=== PATIENT | male | born 1950 | race Caucasian/White ===

== ENCOUNTER 2020-08-15 14:28 | Outpatient (CLI) | payer MEDICARE, SELFPAY ==
--- NOTE | ~2020-08-15 | XR_ITS ---
EXAMINATION: XR hand LT 2V, XR hand RT 2V DATE: 08/15/2020 15:09 INDICATION: Psoriatic arthropathy. TECHNIQUE: 1. Posteroanterior and lateral views of the left hand were obtained. 2. Posteroanterior and lateral views of the right hand were obtained. COMPARISON: None. FINDINGS: A couple millimeter right ulnar positive variance with mild cystic change at the distal margin of the ulna which could be seen with ulnocarpal impaction. Otherwise normal alignment at both hands. No fra cture. Bilateral lunotriquetral coalitions. Mild to moderate polyarticular osteoarthritis most promin ent at the left first carpometacarpal, right third metacarpophalangeal and a few of the bilateral dis miladis interphalangeal joints with additional mild osteoarthritis at the bilateral wrist, distal radioul osmel and triscaphe joints as well as a few of the remaining metacarpophalangeal joints. No cortical er osions to suggest an inflammatory arthritis. Soft tissues are unremarkable. IMPRESSION: 1. Mild to moderate polyarticular osteoarthritis at both hands and wrists. 2. A couple millimeter right ulnar positive variance with mild cystic change at the ulnar suggesting possible ulnocarpal impaction. 3. 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 Reviewed, dictated and finalized at location A. SFERRER IMPRESSION: 1. Mild to moderate polyarticular osteoarthritis at both hands and wrists. 2. A couple millimeter right ulnar positive variance with mild cystic change at the ulnar suggesting possible ulnocarpal impaction. 3. 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
--- NOTE | ~2020-08-15 | XR_ITS ---
EXAMINATION: XR lumbar spine 2-3V DATE: 08/15/2020 15:09 INDICATION: Psoriasis with arthropathy. TECHNIQUE: 3 views of lumbar spine were obtained. COMPARISON: Lumbar spine radiographs 02/07/19 FINDINGS: There is 7 degrees dextrocurvature of lumbar spine. Vertebral body heights are normal. Ther e is mildly decreased disc height at L4-L5. There are endplate osteophytes at most levels. There is m ultilevel facet joint osteoarthritis, severe in the lower lumbar spine. IMPRESSION: 1. Mild lumbar spondylosis. Reviewed, dictated and finalized at location A. E SUPERVISOR IMPRESSION: 1. Mild lumbar spondylosis.
--- NOTE | ~2020-08-15 | XR_ITS ---
EXAMINATION: XR pelvis 1-2V DATE: 08/15/2020 15:09 INDICATION: Psoriasis with arthropathy. TECHNIQUE: An anteroposterior view of the pelvis was obtained. COMPARISON: Pelvis radiograph 05/26/2019 FINDINGS: Bone alignment is normal. No fracture. There is mild osteoarthritis of the hips. No evidenc e of inflammatory arthropathy. There is moderate lumbar spondylosis. IMPRESSION: 1. Mild osteoarthritis of the hips. Reviewed, dictated and finalized at location A. O HANDLER
== END 2020-08-15 14:29 | disposition home or self-care (01) ==
PROVIDERS: PCP Family Medicine; Visit Provider Physician Assistant
DX: L40.50 Arthropathic psoriasis, unspecified (principal); M47.896 Other spondylosis, lumbar region; M16.0 Bilateral primary osteoarthritis of hip; M19.041 Primary osteoarthritis, right hand; M19.042 Primary osteoarthritis, left hand; M19.031 Primary osteoarthritis, right wrist; M19.032 Primary osteoarthritis, left wrist
CPT/HCPCS: 72100; 72170; 73120

== ENCOUNTER 2020-10-13 14:31 | Emergency (ER) | payer MEDICARE, SELFPAY ==
--- NOTE | ~2020-10-13 | XR_ITS ---
EXAMINATION: XR chest 1V portable INDICATION: Fever and upper respiratory infection TECHNIQUE: Portable AP chest at 1605 hours COMPARISON: 09/08/2018 FINDINGS: Patchy bilateral airspace opacities are present. There is no pleural effusion or pneumothor ax. The cardiomediastinal silhouette is normal. There is mild osteoarthritis of the shoulders. IMPRESSION: 1. Patchy bilateral airspace opacities, consistent with atelectasis versus pneumonia. Reviewed, dictated and finalized at location A. ITY ANALYST/TECHNICAL WRITER IMPRESSION: 1. Patchy bilateral airspace opacities, consistent with atelectasis versus pneu monia.
[2020-10-13 14:41] VITALS: BP 147/77; PULSE 102; RESP 18; TEMP 36.4; O2SAT 98
[2020-10-13 15:03] VITALS: BP 188/90; PULSE 89; RESP 16; TEMP 38.6; O2SAT 99
--- NOTE | 2020-10-13 15:40 | ED.URI ---
HPI - URI/Sore Throat General Chief Complaint: Upper Respiratory Infection Stated Complaint: COVID+ 24DEC FEVER WEAKNESS Time Seen by Provider: 10/13/20 15:38 History of Present Illness HPI Narrative: Not feeling well for more than a week. Tested positive for COVID19 on 10/04/2020. Today he became concerned because he checked his oxygen saturation at [place] and it got down to 94%. He was feeling mildly SOB, especially with exertion. He also noted that he had developed a fever. Temperature during triage was 38.6C. He has had decreased appetite, malaise, and fatigue. No nausea, vomiting, diarrhea. Related Data Home Medications Medication Instructions Recorded Confirmed pfijnzyf-val-wpddp acid 300 1 tablet PO DAILY 08/19/19 06/26/20 mcg-lycopene 600 mcg-lutein 300 mcg tablet golimumab 12.5 mg/mL intravenous IVPB 09/06/19 06/26/20 solution adalimumab 40 mg/0.8 mL 40 mg SUB-Q ONCE 06/26/20 06/26/20 subcutaneous pen kit Allergies Allergy/AdvReac Type Severity Reaction Status Date / Time Penicillins Allergy Unknown Urticaria Verified 10/13/20 14:44 Sulfa (Sulfonamide Allergy Unknown Dermatitis Verified 10/13/20 14:44 Antibiotics) Review of Systems Review of Systems: All systems reviewed & are unremarkable except as noted in HPI and below Constitutional: Constitutional: Reports chills, Reports fatigue and Reports fever(s) ENT: Denies sore throat Cardiovascular: Cardiovascular: Reports chest pain Respiratory: Respiratory: Reports chest congestion, Reports cough and Reports dyspnea Gastrointestinal: Gastrointestinal: Denies abdominal pain, Denies diarrhea, Denies nausea and Denies vomiting Genitourinary: Genitourinary: Denies dysuria Musculoskeletal: Musculoskeletal: Reports myalgias Neurologic: Denies confusion and Denies dizziness [facility] Past Medical History Medical History COVID-19 (10/04/20) Encounter for screening for other viral diseases Nocturia Periodic limb movement disorder Family History Family History Father Cerebrovascular accident, Onset Age: 72 Family history of heart disease in male family member before age 55 Hypertension, Onset Age: 72 Mother Family history of Parkinson's disease Carcinoma of colon Hypertension Patient's mother is , Onset Age: 80 Sibling Patient's brother is in good health Grandparent Family history of cardiovascular disease, Onset Age: 85 Cerebrovascular accident, Onset Age: 60 Social History Social History Smoking status: Never smoker Alcohol intake: never Gender identity (if verbalized by the patient): Male Exam Const: General: no acute distress and alert Nutritional Appearance: well nourished Orientation/consciousness: patient oriented x3 HENMT: Head: normal to inspection Resp: Effort & Inspection: normal respiratory effort Auscultation: clear to auscultation bilaterally Cardio: Rate: regular rate Rhythm: regular rhythm GI: GI Palp: Yes Soft to palpation and No Tenderness to palpation present (GI) Skin: General skin exam: normal color Neuro: General: patient oriented x3, moves all extremities, no focal motor deficits and CN's II-XI intact bilaterally Speech: normal speech Extrem: General: normal to inspection and no edema Course Vital Signs Vital signs: Vital Signs Temperature 36.4 C L 10/13/20 14:41 Pulse Rate 102 H 10/13/20 14:41 Respiratory Rate 18 10/13/20 14:41 Blood Pressure 147/77 H 10/13/20 14:41 Pulse Oximetry 98 10/13/20 14:41 Temperature 37.3 C 10/13/20 17:45 Pulse Rate 81 10/13/20 17:45 Respiratory Rate 22 H 10/13/20 17:45 Blood Pressure 161/89 H 10/13/20 17:45 Pulse Oximetry 96 10/13/20 17:45 MDM - URI/Sore Throat Differential Diagnosis Differential diagnosis:
--- NOTE | 2020-10-13 15:41 | ECG_ITS ---
Measurements Intervals [place] Rate: 84 P: 11 GA: 179 QRS: -59 QRSD: 98 T: 79 QT: 316 QTc: 376 Interpretive Statements SINUS RHYTHM LEFT ANTERIOR FASCICULAR BLOCK CANNOT RULE OUT SEPTAL INFARCT, AGE INDETERMINATE BORDERLINE ST-T WAVE ABNORMALITY- HIGH LATERAL LEADS ABNORMAL ECG Electronically Signed On 10-13-2020 17:56:44 VACUUM CLEANER REPAIRER by Armando Penaloza D.O.
[2020-10-13 16:13] LABS: Basophils Percent Auto 0.3 % (0.2-1.2); Hematocrit 45.2 % (42.0-52.0); Hemoglobin 15.1 g/dL (14.0-18.0); Immature Granulocyte Absolute 0.11 K/mm3 (0.00-0.031); Immature Granulocyte Percent A 0.9 % (0-0.5); Lymphocytes Percent Auto 21.3 % (18.3-44.2); Mean Corpuscular HGB Conc 33.4 g/dl (32-36); Mean Corpuscular Hemoglobin 29.5 pg (26-34); Mean Corpuscular Volume 88.5 fl (80-100); Mean Platelet Volume 9.4 fl (7.4-10.4); Monocytes Absolute Auto 1.7 K/mm3 (0.1-0.6); Monocytes Percent Auto 14.7 % (2.6-8.5); Neutrophils Absolute Auto 7.4 K/mm3 (1.3-6.7); Neutrophils Percent Auto 62.8 % (45.5-73.1); Platelet Count Result 259 k/mm3 (150-375); Red Blood Count 5.11 M/mm3 (4.6-6.20); Red Cell Distribution Width 12.9 % (11.5-14.5); White Blood Count 11.7 K/mm3 (4.5-10.0)
[2020-10-13 16:24] LABS: Lactic Acid Reflex 1.2 mmol/L (0.7-2.1)
[2020-10-13 16:26] LABS: Prothrombin Time 13.8 Seconds (11.1-14.7)
[2020-10-13 16:27] LABS: Alanine Aminotransferase 39 U/L (4-50); Albumin Level 4.2 g/dL (3.5-5.1); Alkaline Phosphatase 98 U/L (38-126); Anion Gap 10 mmol/L (8-16); Aspartate Amino Transferase 47 U/L (17-59); Bilirubin,Total 0.7 mg/dL (0.2-1.3); Blood Urea Nitrogen 32 mg/dL (9-20); CRP 1.2 mg/dL (<1.0); Calcium 9.4 mg/dL (8.4-10.2); Carbon Dioxide 29 mmol/L (22-30); Chloride 102 mmol/L (98-107); Estimated CRCL calculation 73 ml/min; Estimated Glomerular Filt Rate > 60; Glucose 91 mg/dL (75-110); Partial Thromboplastin Time 26.1 SECONDS (22.3-36.8); Potassium 3.8 mmol/L (3.4-5.0); Sodium 141 mmol/L (137-145)
[2020-10-13 16:40] VITALS: BP 167/92; PULSE 71; RESP 16; TEMP 37.1; O2SAT 96
[2020-10-13 17:02] LABS: Add Urine Microscopic? YES; Appearance Urine Clear (Clear); Bilirubin Urine Negative (Negative); Blood Urine 1+ (Negative); Color Urine Yellow (Yellow); Glucose Urine UA Negative (Negative); Ketones Urine Negative (Negative); Leukocyte Esterase Ur Negative LEU/UL (Negative); Mucus Urine Rare /lpf; Nitrate Urine Negative (Negative); Protein Urine 1+ mg/dL (Negative); Urobilinogen Urine Negative mg/dL (<2.0); WBC Urine 0-3 /hpf
[2020-10-13 17:45] VITALS: BP 161/89; PULSE 81; RESP 22; TEMP 37.3; O2SAT 96
== END 2020-10-13 17:49 | disposition home or self-care (01) ==
PROVIDERS: Emergency Provider Emergency Medicine; PCP Family Medicine
DX: U07.1 COVID-19 (principal); I44.4 Left anterior fascicular block; R94.31 Abnormal electrocardiogram [ECG] [EKG]
CPT/HCPCS: 36415; 71045; 80053; 81001; 83605; 85025; 85610; 85730; 86140; 87040; 93005; 96365; 96375; 99284; J0131; J1100

== ENCOUNTER 2020-10-15 15:04 | Emergency (ER) | payer MEDICARE, SELFPAY ==
[2020-10-15] VITALS (7 sets, daily range): BP systolic 141–176; BP diastolic 79–91; PULSE 92–99; RESP 18–25; TEMP 36.8–36.9; O2SAT 94–100
--- NOTE | ~2020-10-15 | CT_ITS ---
EXAMINATION: CTA chest PE protocol EXAM DATE: 10/15/2020 17:19 INDICATION: Fever and shortness of breath. Abnormal chest x-ray. TECHNIQUE: Spiral CTA of the chest (pulmonary arteries) was performed with 100 cc Omnipaque 350 intr avenous contrast injection. Images were acquired during the pulmonary arterial phase. Coronal maxi mum intensity projection 3D-reconstructions were created by the technologist on dedicated workstation . Axial, coronal and sagittal reformatted images were reviewed. The dose-length product (DLP) for t his examination was 953.11 mGy-cm. The exposure was tailored according to patient size (auto mA exp osure control), and iterative reconstruction (ASIR) was used as additional dose reduction technique. Correlation is made to chest x-ray same date. FINDINGS: There are no pulmonary emboli in the 1st through 3rd order (central and interlobar) pulmon colin arteries. Loss of attenuation in the segmental pulmonary arteries due to respiratory motion, man y of these not well evaluated. No thoracic aortic dissection. Linear subsegmental atelectasis. Th ere are no pleural or pericardial effusions. Tracheobronchial tree is patent. There is no mediast inal, hilar or axillary lymphadenopathy. There is no pneumothorax. Heart normal in size. No eva dence of coronary arterial calcification. Several small liver cysts. There is mild to moderate thor acic spondylosis without osteoblastic or osteolytic lesions identified. IMPRESSION: 1. No central pulmonary emboli or acute findings. Limited segmental evaluation. 2. Linear subsegmental atelectasis. Reviewed, dictated and finalized at location A. CISE RIDER IMPRESSION: 1. No central pulmonary emboli or acute findings. Limited segmental evaluation . 2. Linear subsegmental atelectasis.
--- NOTE | ~2020-10-15 | XR_ITS ---
XR chest 1V portable DATE: 10/15/2020 16:45 INDICATION: Fever and chills, body aches. Shortness of breath with exertion. Covid-positive for 2 day s. TECHNIQUE: Portable AP chest on 10/15/2020 at 1642 hours COMPARISON: 10/13/2020 portable AP chest at 1605 hours FINDINGS: Normal heart size. No hilar or mediastinal enlargement. Minimal infiltrate or atelectasis i s suggested at the right lung base. The lungs otherwise appear clear. No pleural effusion or pulmonar y vascular congestion or pneumothorax. Degenerative spurring of the thoracic spine. IMPRESSION: Minimal infiltrate or atelectasis at the right lung base Reviewed, dictated and finalized at location B. DRAWING CHECKER
--- NOTE | 2020-10-15 15:58 | ECG_ITS ---
Measurements Intervals [place] Rate: 98 P: 10 IL: 145 QRS: -56 QRSD: 105 T: 76 QT: 299 QTc: 382 Interpretive Statements SINUS RHYTHM LEFT ANTERIOR FASCICULAR BLOCK BASELINE ARTIFACT- I, II, III, AVR, AVL, AVF ABNORMAL ECG Electronically Signed On 10-15-2020 19:44:47 METAL GAUGE MAKER by Armando Penaloza D.O.
--- NOTE | 2020-10-15 16:18 | ED.FEVER ---
HPI - Fever General Chief Complaint: Fever Stated Complaint: COVID +/ fever Time Seen by Provider: 10/15/20 15:18 Source: patient Mode of arrival: ambulatory Limitations: no limitations History of Present Illness HPI Narrative: This patient is a 70 year old male with history psoriatic arthritis, hypothyroidism who presents for evaluation of a fever. He states he was found to be COVID +10/04/20. He has been having fatigue, cough and body aches. He also reports intermittent fevers . He states today he had a fever of 102.5 at noon. He called his PCP who recommended that he come to ER. He reports mild sob. He states he just does not feel any better. He notes is immunocompromised. HE denies nausea, vomiting diarrhea. Related Data Home Medications Medication Instructions Recorded Confirmed brncrbpe-jqr-lujct acid 300 1 tablet PO DAILY 08/19/19 06/26/20 mcg-lycopene 600 mcg-lutein 300 mcg tablet golimumab 12.5 mg/mL intravenous IVPB 09/06/19 06/26/20 solution adalimumab 40 mg/0.8 mL 40 mg SUB-Q ONCE 06/26/20 06/26/20 subcutaneous pen kit Allergies Allergy/AdvReac Type Severity Reaction Status Date / Time Penicillins Allergy Unknown Urticaria Verified 10/15/20 15:17 Sulfa (Sulfonamide Allergy Unknown Dermatitis Verified 10/15/20 15:17 Antibiotics) Review of Systems Review of Systems: All systems reviewed & are unremarkable except as noted in HPI and below Constitutional: Constitutional: Reports chills, Reports fatigue and Reports fever(s) ENT: Reports nasal congestion and Reports sore throat Cardiovascular: Cardiovascular: Denies chest pain Respiratory: Respiratory: Reports cough and Reports dyspnea Gastrointestinal: Gastrointestinal: Denies abdominal pain, Denies nausea and Denies vomiting [facility] Past Medical History Medical History COVID-19 (10/04/20) Encounter for screening for other viral diseases Nocturia Periodic limb movement disorder Family History Family History Father Cerebrovascular accident, Onset Age: 72 Family history of heart disease in male family member before age 55 Hypertension, Onset Age: 72 Mother Family history of Parkinson's disease Carcinoma of colon Hypertension Patient's mother is , Onset Age: 80 Sibling Patient's brother is in good health Grandparent Family history of cardiovascular disease, Onset Age: 85 Cerebrovascular accident, Onset Age: 60 Social History Social History Smoking status: Never smoker Alcohol intake: never Gender identity (if verbalized by the patient): Male Exam Narrative: Exam Narrative: GENERAL: well-nourished, and in no acute distress.Does appear to not feel well HEAD: Normocephalic, atraumatic EYES: PERRLA and EOMI, conjunctiva clear without discharge THROAT:Mucous membranes moist, Oropharynx normal without erythema, exudate, peritonsillar swelling or fluctuance NECK: Supple, without lymphadenopathy or mass RESPIRATORY: No respiratory distress, Airway patent, Respirations non-labored, Clear to auscultation without rales, rhonchi or wheeze HEART: Regular rate and rhythm. No murmur heard. Normal peripheral pulses. ABDOMEN: Soft, nontender, nondistended, normal active bowel sounds. No masses. No rebound or guarding, No organomegaly. EXTREMITIES: No edema, normal strength with full range of motion. SKIN: Warm, dry, normal color without rash NEURO: Alert and oriented x3. CN 2-12 grossly intact. No focal deficits. PSYCH: Normal mood and affect. Course Consultations Consultation #1: I Discussed case with DR. Magallanes. Patient is not hypoxic with ambulation. Labs show leukocytosis which is likely due to steroids. HE did not have a fever in ER .. I discussed I spoke with hospitalist and patient does not
[2020-10-15 16:20] LABS: Basophils Absolute Auto 0.1 K/mm3 (0.0-0.1); Basophils Percent Auto 0.3 % (0.2-1.2); Eosinophils Percent Auto 0.1 % (0-4.4); Hematocrit 45.1 % (42.0-52.0); Hemoglobin 15.2 g/dL (14.0-18.0); Immature Granulocyte Absolute 0.28 K/mm3 (0.00-0.031); Immature Granulocyte Percent A 1.6 % (0-0.5); Lymphocytes Absolute Auto 2.56 K/mm3 (0.9-3.2); Mean Corpuscular HGB Conc 33.7 g/dl (32-36); Mean Corpuscular Hemoglobin 29.2 pg (26-34); Mean Corpuscular Volume 86.7 fl (80-100); Mean Platelet Volume 9.6 fl (7.4-10.4); Monocytes Absolute Auto 1.7 K/mm3 (0.1-0.6); Monocytes Percent Auto 9.8 % (2.6-8.5); Neutrophils Absolute Auto 12.5 K/mm3 (1.3-6.7); Neutrophils Percent Auto 73.2 % (45.5-73.1); Platelet Count Result 257 k/mm3 (150-375); Red Cell Distribution Width 12.9 % (11.5-14.5); White Blood Count 17.1 K/mm3 (4.5-10.0)
[2020-10-15 16:27] LABS: Alveolar/Arterial O2 Gradient 67.4 mmHg; Base Excess ABG -0.4 mEq/l (+/-2.0); Carboxyhemoglobin 0.8 % THb (0-2.0); Fractional Inspired Oxygen 21 %; HCO3 ABG 20.9 mEq/l (22.0-26.0); Methemoglobin ABG 0.1 %THb (0-1.5); Oxygen Content ABG 18.5 %vol (16.0-22.0); Oxygen Saturation ABG 90.1 % (95.0-100.0); Oxyhemoglobin 89.2 % THb (90.0-100.0); PCO2 ABG 26.4 mmHg (35.0-45.0); PO2 ABG 50.7 mmHg (80.0-100.0); PO2 FiO2 Ratio Arterial Blood 2.41 %; Reduced Hemoglobin 9.9 %THb (0-5.0); Total Hemoglobin 14.8 g/dL (12.0-18.0)
[2020-10-15 16:28] LABS: Device ROOM AIR; Modified Allen's Test Pass; Site Drawn RIGHT RADIAL; pH ABG 7.517 (7.350-7.450)
[2020-10-15 16:30] LABS: Partial Thromboplastin Time 29.4 SECONDS (22.3-36.8); Prothrombin Time 13.8 Seconds (11.1-14.7)
[2020-10-15 16:33] LABS: D Dimer 1.15 ug/mL (<0.48)
[2020-10-15 16:34] LABS: Lactic Acid Reflex 2.1 mmol/L (0.7-2.1)
[2020-10-15 16:38] LABS: Alanine Aminotransferase 36 U/L (4-50); Albumin Level 4.1 g/dL (3.5-5.1); Alkaline Phosphatase 100 U/L (38-126); Anion Gap 11 mmol/L (8-16); Aspartate Amino Transferase 40 U/L (17-59); Bilirubin,Total 0.7 mg/dL (0.2-1.3); Blood Urea Nitrogen 31 mg/dL (9-20); CRP 3.3 mg/dL (<1.0); Calcium 9.2 mg/dL (8.4-10.2); Carbon Dioxide 29 mmol/L (22-30); Chloride 99 mmol/L (98-107); Estimated CRCL calculation 66 ml/min; Estimated Glomerular Filt Rate 60; Glucose 90 mg/dL (75-110); Potassium 3.5 mmol/L (3.4-5.0); Sodium 139 mmol/L (137-145)
[2020-10-15 16:44] LABS: NT Pro B Type Natriuretic Pept 73 PG/ML (5-100)
--- NOTE | 2020-10-15 16:52 | PC.NURSE ---
Pt daughters came in wanting to see her father. Daughter was informed that since pt is COVID + he is unable to have visitors. Pts daughter wanted to know that status of her father. I informed daughter that she was not an authorized person to give information to. Daughter asked who was on list and informed her that i could not tell her this. Daughter states fuck you, this is fucking bullshit and walked out door. Will inform pt that his daughter was here.
--- NOTE | 2020-10-15 18:25 | ECG_ITS ---
Measurements Intervals [place] Rate: 108 P: ID: 0 QRS: -58 QRSD: 98 T: 82 QT: 302 QTc: 405 Interpretive Statements SUPRAVENTRICULAR TACHYCARDIA CHANGES TO SINUS TACHYCARDIA LEFT ANTERIOR FASCICULAR BLOCK BASELINE ARTIFACT- I, II, AVR, AVL ABNORMAL ECG Electronically Signed On 10-17-2020 8:21:31 SAP GATHERER by Armando Penaloza D.O.
[2020-10-15 18:37] LABS: Add Urine Microscopic? YES; Appearance Urine Clear (Clear); Bacteria Urine Trace /hpf; Bilirubin Urine Negative (Negative); Blood Urine 1+ (Negative); Color Urine Yellow (Yellow); Glucose Urine UA Negative (Negative); Ketones Urine Negative (Negative); Leukocyte Esterase Ur Negative LEU/UL (Negative); Mucus Urine Rare /lpf; Nitrate Urine Negative (Negative); Protein Urine 1+ mg/dL (Negative); Urobilinogen Urine Negative mg/dL (<2.0); WBC Urine 0-3 /hpf
[2020-10-15] MEDS: LACTATED RINGERS 1,000 ML 999 ML IV CONT (18:38)
[2020-10-15 18:41] LABS: Specific Grav Ur 1.051 (1.001-1.035)
[2020-10-15 19:18] LABS: Reflex Lactic Acid Yes or No Add Lactic
== END 2020-10-15 19:27 | disposition home or self-care (01) ==
PROVIDERS: Emergency Provider General Practice; PCP Family Medicine
DX: R50.9 Fever, unspecified (principal); B34.9 Viral infection, unspecified; U07.1 COVID-19; L40.50 Arthropathic psoriasis, unspecified; E03.9 Hypothyroidism, unspecified; R06.02 Shortness of breath
CPT/HCPCS: 36415; 36600; 71045; 71275; 80053; 81001; 82375; 82805; 83050; 83605; 83880; 85025; 85380; 85610; 85730; 86140; 87040; 87804; 93005; 96360; 99284; J7120; Q9967

== ENCOUNTER 2021-04-26 12:24 | Outpatient (CLI) | payer MEDICARE, SELFPAY ==
--- NOTE | ~2021-04-26 | CT_ITS ---
EXAMINATION: CT diagnostic chest wo con EXAM DATE: 04/26/2021 12:45 INDICATION: R91.1 - Solitary pulmonary nodule. TECHNIQUE: Spiral CT of the chest without contrast. Axial, coronal and sagittal images of the chest were reviewed. Coronal maximum intensity pixel images of chest reviewed. The dose-length product ( DLP) for this examination was 341.05 mGy-cm. The exposure was tailored according to patient size (au to mA exposure control), and iterative reconstruction (ASIR) was used as additional dose reduction te chnique. Comparison is made to prior examination from 10/15/2020. FINDINGS: The lungs are clear. There are no pleural or pericardial effusions. Tracheobronchial t ree is patent. There is no mediastinal, hilar or axillary lymphadenopathy. There is no pneumothor ax. Heart normal in size. No evidence of coronary arterial calcification. Right liver lobe 2.5 c m cyst. There is mild thoracic spondylosis without osteoblastic or osteolytic lesions identified. IMPRESSION: 1. Unremarkable CT chest examination. Reviewed, dictated and finalized at location A.
== END 2021-04-26 12:25 | disposition home or self-care (01) ==
PROVIDERS: PCP Family Medicine; Visit Provider Nurse Practitioner Family
DX: R91.1 Solitary pulmonary nodule (principal)
CPT/HCPCS: 71250

== ENCOUNTER 2022-04-22 14:30 | Outpatient (RCR) | payer MEDICARE, SELFPAY ==
[2022-04-22 14:52] VITALS: BP 160/60; PULSE 80; RESP 20; TEMP 37.7; O2SAT 96
[2022-04-22] MEDS: ACETAMINOPHEN 325 MG TABLET 650 MG PO (14:56)
[2022-04-22] MEDS: diphenhydrAMINE HCl CAP 25 MG CAPSULE PO (14:56)
[2022-04-22] MEDS: FAMOTIDINE 20 MG TABLET PO (14:56)
[2022-04-22] MEDS: BEBTELOVIMAB 175 MG/2 ML VIAL IV PUSH (15:16)
[2022-04-22 15:56] VITALS: BP 139/55; PULSE 75; RESP 18; O2SAT 94
== END 2022-04-22 16:00 ==
LOC: AMCINF 14:30
PROVIDERS: PCP Family Medicine; Referring Provider Family Medicine; Visit Provider Internal Medicine Hematology & Oncology
DX: U07.1 COVID-19 (principal)
CPT/HCPCS: A9270; M0222; Q0222

== ENCOUNTER 2022-05-19 09:46 | Outpatient (CLI) | payer MEDICARE, SELFPAY ==
--- NOTE | 2022-05-19 10:12 | ECG_ITS ---
Measurements Intervals [place] Rate: 62 P: 56 [place]: 254 QRS: -55 QRSD: 110 T: 50 QT: 369 QTc: 375 Interpretive Statements SINUS RHYTHM WITH FIRST DEGREE AV BLOCK LEFT ANTERIOR FASCICULAR BLOCK [QRS AXIS <= -45, QR IN I, RS IN II] COMPARED TO ECG 10/15/2020 18:25:38 PATIENT IS NO LONGER TACHYCARDIC Electronically Signed On 05-19-2022 14:33:28 CDT by Rah Hilton M.D.
== END 2022-05-19 09:47 | disposition home or self-care (01) ==
PROVIDERS: PCP Family Medicine; Visit Provider Family Medicine
DX: I10 Essential (primary) hypertension (principal); I44.0 Atrioventricular block, first degree; I44.4 Left anterior fascicular block
CPT/HCPCS: 93005

== ENCOUNTER 2022-06-04 15:17 | Outpatient (CLI) | payer MEDICARE, SELFPAY ==
--- NOTE | ~2022-06-04 | MR_ITS ---
EXAMINATION: MR lumbar spine wo con DATE: 06/04/2022 16:06 INDICATION: Chronic midline low back pain TECHNIQUE: Magnetic resonance imaging (MRI) of the lumbar spine was performed without intravenous con trast. Sequences included sagittal T2-weighted FSE, sagittal T2-weighted FS FSE, sagittal T1-weighted FSE, and axial T2-weighted FSE. COMPARISON: None FINDINGS: A degree lumbar dextrocurvature. Sagittal alignment is normal. Vertebral body heights are normal. Diego morl's node along the inferior endplate of L4. T1 hyperintense hemangiomas at L2. Moderate disc heigh t loss with right-sided predominance and right-sided degenerative endplate changes at L4-L5. Mild dis c height loss at T11-T12. The conus medullaris terminates at L1-L2. There is normal signal in the cau johanna spinal cord. Paravertebral soft tissues are unremarkable. The following disc levels are specifica lly discussed: T12-L1: The disc does not extend beyond the endplate margin. There is mild left and moderate right fa cet joint osteoarthritis. There is no neural foraminal stenosis. There is no central canal stenosis. L1-L2: Disc is minimally bulging. There is mild to moderate bilateral facet joint osteoarthritis. The re is mild left neural foraminal stenosis. There is no central canal stenosis. L2-L3: Disc is mildly bulging most prominent at the left foraminal zone There is mild bilateral facet joint osteoarthritis. There is mild bilateral, left greater than right. neural foraminal stenosis. T here is no central canal stenosis. L3-L4: Disc is mildly bulging. There is moderate bilateral facet joint osteoarthritis. There is mild bilateral neural foraminal stenosis. There is no central canal stenosis. L4-L5: Disc is moderately bulging. There is moderate left and severe right facet joint osteoarthritis . There is mild left and moderate right neural foraminal stenosis. There is mild central canal stenos is. L5-S1: Disc is bulging with annular fissure. There is severe bilateral facet joint osteoarthritis. Th ere is moderate bilateral neural foraminal stenosis. There is no central canal stenosis. IMPRESSION: 1. Mild to moderate lower lumbar predominant spondylosis. Reviewed, dictated and finalized at location A.
== END 2022-06-04 15:18 | disposition home or self-care (01) ==
PROVIDERS: PCP Family Medicine; Visit Provider Physician Assistant
DX: M47.896 Other spondylosis, lumbar region (principal)
CPT/HCPCS: 72148

== ENCOUNTER 2022-10-08 14:22 | Emergency (ER) | payer MEDICARE, SELFPAY ==
[2022-10-08 14:43] VITALS: TEMP 36.7
--- NOTE | 2022-10-08 15:17 | ED.URI ---
HPI - URI/Sore Throat General Chief Complaint: Upper Respiratory Infection Stated Complaint: flu like symptoms Time Seen by Provider: 10/08/22 15:23 Source: patient, RN notes reviewed and old records reviewed Mode of arrival: ambulatory Limitations: no limitations History of Present Illness HPI Narrative: 72-year-old male who presents to [facility] with complaints of 2 day history of body aches, weakness, fevers up to 101.7F earlier today, and sinus congestion. Patient reports his doctor wanted him to come to clinic and have flu test. Patient appears pale and reports he doesn't feel well. Patient does have history of psoriatic arthritis and takes infusions of Golimumab IV. Patient reports that he did home COVID test earlier today that was negative but he isn't sure he did it right. Patient reports history of previous COVID infections, [place] of 2019 and in April of 2022. MD elicited complaint: fever, rhinorrhea, nasal congestion and other (weakness, body aches) Pertinent past history: sinusitis and immunosuppression Onset (ago): day(s) (2) Pain scale (0-10): 4 Able to tolerate fluids by mouth: Yes Treatments prior to arrival: acetaminophen Related Data Home Medications Medication Instructions Recorded Confirmed ascorbate calcium (vitamin C) 500 500 mg PO DAILY 01/09/21 10/08/22 mg tablet amlodipine 5 mg tablet 5 mg PO DAILY 05/20/21 10/08/22 meloxicam 15 mg tablet 15 mg PO DAILY PRN pain 05/20/21 10/08/22 metoprolol succinate 50 mg 50 mg PO DAILY 05/20/21 10/08/22 tablet,extended release 24 hr rosuvastatin 20 mg tablet (Crestor) 20 mg PO DAILY 05/20/21 10/08/22 golimumab 12.5 mg/mL intravenous IV 11/11/21 05/27/22 solution (Simponi ARIA) Allergies Allergy/AdvReac Type Severity Reaction Status Date / Time Penicillins Allergy Unknown Urticaria Verified 10/08/22 14:40 Sulfa (Sulfonamide Allergy Unknown Dermatitis Verified 10/08/22 14:40 Antibiotics) Review of Systems Review of Systems: CONSTITUTIONAL: Reports malaise, chills, sweats, or fever. EYES: Denies visual changes, redness, or discharge. ENT: Reports rhinorrhea, congestion, sinus pain,tinnitus bilateral ears,no sore throat. CARDIOVASCULAR: Denies chest pain, palpitations, or edema. RESPIRATORY: Reports rare dry cough.? Denies dyspnea. GASTROINTESTINAL: Denies abdominal pain, nausea, vomiting, diarrhea SKIN: Denies rash or itching. MUSCULOSKELETAL: Reports myalgia. NEUROLOGIC: Reports headache. All systems reviewed & are unremarkable except as noted in HPI and below PMFSH Past Medical History Medical History Abnormal fasting glucose (05/16/22) fasting glucose 100 on 05/16/2022. Acute sinusitis Anemia (05/16/22) hemoglobin 13.0 with hematocrit 40.6 on 05/16/2022. BMI 33.0-33.9,adult BMI 35.0-35.9,adult Chronic neck pain COVID-19 (10/04/20) COVID-19 (04/22/22) unvaccinated, 2nd episode, symptoms 04/22/2022 with home test positive 04/22/2022. Encounter for screening for other viral diseases Fatigue Liver cyst (04/26/21) patient was noted to have a 2.5 cm cyst the right lobe of the liver on CT of the chest on 04/26/2021. The patient was reassured Macular pucker, left eye Mixed hyperlipidemia Labs from [facility] on 09/16/2021 with total cholesterol 175, HDL 45, triglycerides 149 and LDL 106 with AST 27 and CK 117 Nocturia Obesity (BMI 30.0-34.9) Periodic limb movement disorder Severe periodic limb movement disorder with index of 137.9 on 11/03/2019 Post-COVID syndrome persistent fatigue, loss of taste and smell Recurrent sinusitis Surgical History Surgical History (Updated 10/09/22 @ 00:51 by Sherrill Gaitan NP) H/O eye surgery Family History Family History Father Cerebrovascular accident, Onset Age: 72 Family history of heart disease in male family member before age 55 Hypertension, On
[2022-10-08 15:28] VITALS: BP 142/67; PULSE 75; RESP 20; O2SAT 99
== END 2022-10-08 15:40 | disposition home or self-care (01) ==
PROVIDERS: Emergency Provider Registered Nurse; PCP Family Medicine
DX: J01.10 Acute frontal sinusitis, unspecified (principal); Z20.822 Contact with and (suspected) exposure to COVID-19; E78.5 Hyperlipidemia, unspecified
CPT/HCPCS: 87426; 87804; 99213; C9803; G0463

== ENCOUNTER 2022-12-26 01:26 | Day surgery (SDC) | payer MEDICARE, SELFPAY ==
[2022-12-22 10:27] VITALS: BMI 31.4
--- NOTE | 2022-12-25 11:10 | PM.HPGS ---
History of Present Illness History of Present Illness Consent: Risks, benefits, and alternatives have been discussed and questions answered. Patient agrees to proceed with procedure. Chief complaint: family hx colon ca Narrative: Jhonathan Stephenson is a 72 year old male Was referred for colon cancer screening. He has a family history of colon cancer. His mother had colon cancer. His last colonoscopy was apparently in 2017. Review of Systems Review of Systems: All systems reviewed & are unremarkable except as noted in HPI and below PMFSH Past Medical History Medical History Abnormal fasting glucose (05/16/22) fasting glucose 100 on 05/16/2022. Glucose 108 with hemoglobin A1c 5.8 on 11/26/2022. Acute sinusitis Anemia (05/16/22) hemoglobin 13.0 with hematocrit 40.6 on 05/16/2022. Hemoglobin 12.4 with vitamin B12 408 and folic acid greater than 24 with iron 61 with 22% saturation and ferritin 80 on 11/26/2022. BMI 33.0-33.9,adult BMI 35.0-35.9,adult Chronic neck pain COVID-19 (10/04/20) COVID-19 (04/22/22) unvaccinated, 2nd episode, symptoms 04/22/2022 with home test positive 04/22/2022. Encounter for prostate cancer screening PSA 3.40 on 05/16/2022. Encounter for screening for other viral diseases Family history of colon cancer in mother colonoscopy every 5 years starting at age 40 with last exam 2017 Fatigue Liver cyst (04/26/21) patient was noted to have a 2.5 cm cyst the right lobe of the liver on CT of the chest on 04/26/2021. 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 Total cholesterol 86, triglycerides 37, HDL 54, LDL 21 on 11/26/2022. Nocturia Obesity (BMI 30.0-34.9) Periodic limb movement disorder Severe periodic limb movement disorder with index of 137.9 on 11/03/2019. Iron 61 with 22% saturation and ferritin 80 on 11/26/2022. Post-COVID syndrome persistent fatigue, loss of taste and smell Recurrent sinusitis Surgical History Surgical History H/O eye surgery Family History Family History Father Cerebrovascular accident, Onset Age: 72 Family history of heart disease in male family member before age 55 Hypertension, Onset Age: 72 Mother Family history of Parkinson's disease Carcinoma of colon Hypertension Patient's mother is , Onset Age: 80 Sibling Patient's brother is in good health Grandparent Family history of cardiovascular disease, Onset Age: 85 Cerebrovascular accident, Onset Age: 60 Social History Social History Smoking status: Never smoker Alcohol intake: never Substance use: never Substance use type: does not use Lack of Transportation: No Lack of Food: Never True Current Housing: I Have Housing Concerned About Future Housing: No Difficulty Paying Gas/Electric Bills: No Difficulty Paying for Meds: No Currently Unemployed: No Education: Master's Degree or Higher Difficulty w/ Childcare or Family Care: No Living arrangements: with family Gender identity (if verbalized by the patient): Male Spiritual care concerns: No Meds Home Medications and Allergies Home Medications Medication Instructions Recorded Confirmed Type aspirin 81 mg tablet,delayed 81 mg PO DAILY #30 tabs 10/26/20 12/26/22 Rx release (Adult Low Dose Aspirin) ascorbate calcium (vitamin C) 500 500 mg PO DAILY 01/09/21 12/26/22 History mg tablet golimumab 12.5 mg/mL intravenous IV 11/11/21 12/04/22 History solution (Simponi ARIA) amlodipine 5 mg tablet 5 mg PO DAILY #90 tabs 12/04/22 12/26/22 Rx cholecalciferol (vitamin D3) 1,250 50,000 unit PO WEEKLY #12 caps 12/04/22
[2022-12-26 07:48] VITALS: BP 135/65; PULSE 65; RESP 20; TEMP 36.3; O2SAT 100
[2022-12-26] MEDS: LACTATED RINGERS 1,000 ML 150 ML IV CONT (07:59)
--- NOTE | 2022-12-26 08:04 | WPDANESEPPF ---
Anes - Initial Pre Proc Eval Procedure: Operation Date: 12/26/22 08:30 Proposed Procedures p Colonoscopy - Alex Lemons MD Date/Time: 12/26/22 08:04 Surgeon: Alex Lemons MD Pre Op Diagnosis: family hx colon ca Patient Data Age: 72 Gender: M Height: 1.8 m Weight: 103.2 kg Last Vital Signs Temp 36.3 C L 12/26/22 07:48 Pulse 65 12/26/22 07:48 Resp 20 12/26/22 07:48 BP 135/65 12/26/22 07:48 Pulse Ox 100 12/26/22 07:48 O2 Del Method Room Air 12/26/22 07:48 Allergies Allergy/AdvReac Type Severity Reaction Status Date / Time Penicillins Allergy Unknown Urticaria Verified 12/26/22 08:00 Sulfa (Sulfonamide Allergy Unknown Dermatitis Verified 12/26/22 08:00 Antibiotics) Home Medications Medication Instructions Recorded Confirmed Type aspirin 81 mg tablet,delayed 81 mg PO DAILY #30 tabs 10/26/20 12/26/22 Rx release (Adult Low Dose Aspirin) ascorbate calcium (vitamin C) 500 500 mg PO DAILY 01/09/21 12/26/22 History mg tablet golimumab 12.5 mg/mL intravenous IV 11/11/21 12/04/22 History solution (Simponi ARIA) amlodipine 5 mg tablet 5 mg PO DAILY #90 tabs 12/04/22 12/26/22 Rx cholecalciferol (vitamin D3) 1,250 50,000 unit PO WEEKLY #12 caps 12/04/22 12/26/22 Rx mcg (50,000 unit) capsule fluticasone propionate 50 1 spray intranasal BID #48 grams 12/04/22 12/26/22 Rx mcg/actuation nasal spray,suspension (Flonase Allergy Relief) hydrochlorothiazide 12.5 mg tablet 12.5 mg PO DAILY #90 tabs 12/04/22 12/26/22 Rx levothyroxine 100 mcg tablet 100 mcg PO DAILY #90 tabs 12/04/22 12/26/22 Rx lisinopril 40 mg tablet 40 mg PO DAILY #90 tabs 12/04/22 12/26/22 Rx meloxicam 15 mg tablet 15 mg PO DAILY PRN pain #90 tabs 12/04/22 12/26/22 Rx metoprolol succinate 50 mg 50 mg PO DAILY #90 tabs 12/04/22 12/26/22 Rx tablet,extended release 24 hr rosuvastatin 20 mg tablet (Crestor) 20 mg PO DAILY #90 tabs 12/04/22 12/26/22 Rx Patient hx anesthesia problems: none Family hx anesthesia problems: none Results Review: All pre-operative results and documents have been reviewed as part of the pre-operative evaluation. [facility]LY [facility] Past Medical History Medical History Abnormal fasting glucose (05/16/22) fasting glucose 100 on 05/16/2022. Glucose 108 with hemoglobin A1c 5.8 on 11/26/2022. Acute sinusitis Anemia (05/16/22) hemoglobin 13.0 with hematocrit 40.6 on 05/16/2022. Hemoglobin 12.4 with vitamin B12 408 and folic acid greater than 24 with iron 61 with 22% saturation and ferritin 80 on 11/26/2022. BMI 33.0-33.9,adult BMI 35.0-35.9,adult Chronic neck pain COVID-19 (10/04/20) COVID-19 (04/22/22) unvaccinated, 2nd episode, symptoms 04/22/2022 with home test positive 04/22/2022. Encounter for prostate cancer screening PSA 3.40 on 05/16/2022. Encounter for screening for other viral diseases Family history of colon cancer in mother colonoscopy every 5 years starting at age 40 with last exam 2017 Fatigue Liver cyst (04/26/21) patient was noted to have a 2.5 cm cyst the right lobe of the liver on CT of the chest on 04/26/2021. 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 Total cholesterol 86, triglycerides 37, HDL 54, LDL 21 on 11/26/2022. Nocturia Obesity (BMI 30.0-34.9) Periodic limb movement disorder Severe periodic limb movement disorder with index of 137.9 on 11/03/2019. Iron 61 with 22% saturation and ferritin 80 on 11/26/2022. Post-COVID syndrome persistent fatigue, loss of taste and smell Recurrent sinusitis Surgical History Surgical History H/O eye surgery Family History Family History Father Cerebrovascular accident, Onset Age: 72
[2022-12-26] MEDS: BENZOCAINE (*SP) 60 ML SPRAY CAN (HURRICAINE) 1 SPRAY MUCOUS MEM (08:34)
[2022-12-26 08:43] VITALS: BP 116/59; PULSE 72; RESP 18; O2SAT 95
[2022-12-26 08:53] VITALS: BP 106/60; PULSE 65; RESP 12; O2SAT 97
[2022-12-26 09:03] VITALS: BP 121/68; PULSE 66; RESP 14; O2SAT 100
== END 2022-12-26 09:13 | disposition home or self-care (01) ==
PROVIDERS: PCP Family Medicine; Visit Provider Internal Medicine Gastroenterology
PROC: 0DJD8ZZ Inspection of Lower Intestinal Tract, Via Natural or Artificial Opening Endoscopic (ICD-10-PCS; CPT 45378; principal; 2022-12-26 08:30)
DX: Z12.11 Encounter for screening for malignant neoplasm of colon (principal); K57.30 Diverticulosis of large intestine without perforation or abscess without bleeding; Z80.0 Family history of malignant neoplasm of digestive organs; E78.2 Mixed hyperlipidemia; Z79.82 Long term (current) use of aspirin
CPT/HCPCS: G0105; J2704; J7120

== ENCOUNTER 2023-07-29 12:43 | Outpatient (CLI) | payer MEDICARE, SELFPAY ==
--- NOTE | 2023-07-29 14:30 | NEURO_ITS ---
Impression: # Complains of numbness of feet. History of Psoriasis for which he is on treatment. # No significant abnormalities noted. # Not consistent with Tarsal Tunnel Syndrome. # Normal needle/EMG exam. Nerve Conduction Studies Anti Sensory Summary Table Stim Site NR Peak (ms) P-T Amp (?V) Site1 Site2 Delta-P (ms) Dist (cm) Diaz (m/s) Left Sup Fibular Anti Sensory (Ant Lat Mall) 14 cm 3.8 8.3 14 cm Ant Lat Mall 3.8 16.0 42 Right Sup Fibular Anti Sensory (Ant Lat Mall) 14 cm 3.8 11.3 14 cm Ant Lat Mall 3.8 16.0 42 Left Sural Anti Sensory (Lat Mall) Calf 3.8 5.0 Calf Lat Mall 3.8 16.0 42 Right Sural Anti Sensory (Lat Mall) Calf 3.8 17.2 Calf Lat Mall 3.8 16.0 42 Motor Summary Table Stim Site NR Onset (ms) O-P Amp (mV) Site1 Site2 Delta-0 (ms) Dist (cm) Diaz (m/s) Left Lateral Plantar Motor (ADM) Med Mall 4.5 0.5 Right Lateral Plantar Motor (ADM) Med Mall 4.5 0.9 Left Peroneal Motor (Vastus Med) Ankle 4.3 4.7 Popit Ankle 10.9 47.0 43 Popit 15.2 0.0 Right Peroneal Motor (Vastus Med) Ankle 4.6 4.1 Popit Ankle 10.4 44.0 42 Popit 15.0 2.7 Left Tibial Motor (Abd Patel Brev) Ankle 4.7 4.4 Knee Ankle 10.8 47.0 44 Knee 15.5 3.2 Right Tibial Motor (Abd Patel Brev) Ankle 4.7 1.5 Knee Ankle 11.0 45.0 41 Knee 15.7 1.1 F Wave Studies NR F-Lat (ms) L-R F-Lat (ms) Left Peroneal (Mrkrs) (EDB) 58.87 0.62 Right Peroneal (Mrkrs) (EDB) 59.49 0.62 Left Tibial (Mrkrs) (Abd Hallucis) 57.32 0.82 Right Tibial (Mrkrs) (Abd Hallucis) 56.50 0.82 EMG Side Muscle Nerve Root Ins Act Fibs Amp Dur Recrt Comment Right AntTibialis Dp Br Fibular L4-5 Nml Nml Nml Nml Nml Right Gastroc Tibial S1-2 Nml Nml Nml Nml Nml Right Fibularis Long Sup Br Fibular L5-S1 Nml Nml Nml Nml Nml Right Flex Dig Long Tibial L5-S2 Nml Nml Nml Nml Nml Right Ext Dig Brev Dp Br Fibular L5, S1 Nml Nml Nml Nml Nml Left AntTibialis Dp Br Fibular L4-5 Nml Nml Nml Nml Nml Left Gastroc Tibial S1-2 Nml Nml Nml Nml Nml Left Fibularis Long Sup Br Fibular L5-S1 Nml Nml Nml Nml Nml Left Flex Dig Long Tibial L5-S2 Nml Nml Nml Nml Nml Left Ext Dig Brev Dp Br Fibular L5, S1 Nml Nml Nml Nml Nml MTDD
== END 2023-07-29 12:44 | disposition home or self-care (01) ==
LOC: ANHNEURO 12:44
PROVIDERS: PCP Family Medicine; Visit Provider Family Medicine
DX: R20.2 Paresthesia of skin (principal)
CPT/HCPCS: 95886; 95911

== ENCOUNTER 2023-08-06 14:10 | Outpatient (CLI) | payer MEDICARE, SELFPAY ==
--- NOTE | ~2023-08-06 | US_ITS ---
US art doppler w press LE BI INDICATION: Peripheral vascular disease TECHNIQUE: Segmental pressures and plethysmographic and Doppler waveforms of the brachial and lower e xtremity arteries were obtained. COMPARISON: None. FINDINGS: Right and left brachial artery pressures of 136 mm Hg and 133 mm Hg, respectively, are concordant (no rmal difference <= 30 mmHg). There is mixed biphasic and triphasic flow in the lower extremity arteri es. The right ankle-brachial index (ELIZABETH) is 1.25 (normal >= 0.9-1.0). The right great toe-brachial index (TBI) is 0.73 (normal >= 0.60). The left ELIZABETH is 1.29. The left TBI is 1.1. IMPRESSION: 1. Unremarkable lower extremity arterial Doppler. Normal ABIs. Reviewed, dictated and finalized at location B.
== END 2023-08-06 14:11 | disposition home or self-care (01) ==
PROVIDERS: PCP Family Medicine; Visit Provider Family Medicine
DX: I73.9 Peripheral vascular disease, unspecified (principal)
CPT/HCPCS: 93923

== ENCOUNTER 2023-09-17 10:26 | Outpatient (CLI) | payer MEDICARE, SELFPAY ==
--- NOTE | ~2023-09-17 | MR_ITS ---
MRI of the lumbar spine Clinical History: Back pain Technique: Axial T2-weighted images, and sagittal T1-weighted, T2-weighted, and and T2 fat-sat images were acquired. COMPARISON: 06/04/2022 Findings: There is no fracture or subluxation of the lumbar spine. Vertebral bodies maintain normal h eight and alignment. No bone marrow signal abnormality seen. At L1-L2, L2-L3, L3-L4, there are minimal disc bulges with moderate facet arthropathy. No spinal naresh l stenosis. Neural foramina are preserved. At L4-L5, there is degenerative disc narrowing with mild disc bulge and severe facet arthropathy. No central canal stenosis. There is advanced right neural foraminal narrowing. Left neural foramen prese rved. At L5-S1, there is minimal disc bulge with severe facet arthropathy. No spinal canal stenosis. There is severe bilateral neural foraminal narrowing, left worse than right. Paravertebral soft tissues are unremarkable. Impression: Neural foraminal narrowing at L4-L5 and L5-S1 levels, as detailed above. Reviewed, dictated and finalized at [facility] M. TRIC WIRER Impression: Neural foraminal narrowing at L4-L5 and L5-S1 levels, as detailed above.
== END 2023-09-17 10:27 | disposition home or self-care (01) ==
PROVIDERS: PCP Family Medicine; Visit Provider Physician Assistant
DX: M54.50 Low back pain, unspecified (principal); G89.29 Other chronic pain; M48.061 Spinal stenosis, lumbar region without neurogenic claudication
CPT/HCPCS: 72148

== ENCOUNTER 2024-06-21 14:41 | Outpatient (CLI) | payer MEDICARE, SELFPAY ==
--- NOTE | ~2024-06-21 | CT_ITS ---
EXAMINATION: CT brain wo con DATE: 06/21/2024 15:04 INDICATION: Memory loss. TECHNIQUE: Computed tomography (CT) of the head was performed without intravenous contrast. The mA wa s adjusted according to patient size. Iterative reconstruction technique was employed. The dose-lengt h product was 605.33 mGy-cm. COMPARISON: None FINDINGS: There are scattered areas of low attenuation in the cerebral white matter, which is within normal limits for the patient's age. There is no intracranial hemorrhage, acute infarction, or abnorm al intracranial mass lesion. The ventricles are normal in size. There are likely changes of ocular le ns replacement surgeries. There is complete opacification of right maxillary sinus with material bulg ing into the right middle meatus and with thickening and sclerosis of the sinus red, consistent wit h chronic sinusitis. There is mild mucosal thickening in the right ethmoid sinuses. IMPRESSION: 1. Normal aging brain. 2. Chronic sinusitis. Reviewed, dictated and finalized at location A.
== END 2024-06-21 14:42 | disposition home or self-care (01) ==
PROVIDERS: PCP Family Medicine
DX: G31.84 Mild cognitive impairment of uncertain or unknown etiology (principal); J32.9 Chronic sinusitis, unspecified
CPT/HCPCS: 70450

== ENCOUNTER 2024-08-01 10:13 | Emergency (ER) | payer MEDICARE, SELFPAY ==
[2024-08-01 10:37] VITALS: BP 141/68; PULSE 65; RESP 16; TEMP 36.4; O2SAT 96
--- NOTE | 2024-08-01 11:05 | ED.URI ---
HPI - URI/Sore Throat General Chief Complaint: Upper Respiratory Infection Stated Complaint: headache / congestion Time Seen by Provider: 08/01/24 11:05 Source: patient, RN notes reviewed and old records reviewed Mode of arrival: ambulatory Limitations: no limitations History of Present Illness HPI Narrative: 73-year-old male to [facility] with complaint headache, nasal drainage, sinus pain and pressure for 2 days. 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 Patient denies shortness of breath, fever, GI complaints, ear pain. Patient able to tolerate fluids by mouth. Patient resting in exam room in no acute distress. Respirations even and nonlabored. Related Data Home Medications Medication Instructions Recorded Confirmed golimumab 12.5 mg/mL intravenous 12.5 mg IV DIRECTED 11/11/21 08/01/24 solution (Simponi ARIA) meloxicam 15 mg tablet 15 mg PO DAILY pain 08/01/24 08/01/24 Allergies Allergy/AdvReac Type Severity Reaction Status Date / Time Penicillins Allergy Unknown Urticaria Verified 08/01/24 10:54 Sulfa (Sulfonamide Allergy Unknown Dermatitis Verified 08/01/24 10:54 Antibiotics) Review of Systems Review of Systems: All systems reviewed & are unremarkable except as noted in HPI and below Constitutional: Constitutional: Reports as per HPI and Reports headache(s) Eyes: Eyes: Reports no additional eye complaints ENT: Reports as per HPI, Reports nasal discharge, Reports sinus pain and Reports sinus pressure Cardiovascular: Cardiovascular: Reports no additional cardiovascular complaints, Denies chest pain and Denies dyspnea Respiratory: Respiratory: Reports no additional respiratory complaints, Denies cough and Denies dyspnea Musculoskeletal: Musculoskeletal: Reports no additional musculoskeletal complaints Neurologic: Reports system reviewed and no additional complaints, except as documented Psychiatric: Psychiatric: Reports no additional psychiatric complaints [facility]LY [facility] Past Medical History Medical History Abnormal fasting glucose (05/16/22) fasting glucose 100 on 05/16/2022. Glucose 108 with hemoglobin A1c 5.8 on 11/26/2022. Fasting glucose 93 on 03/03/2023. Fasting glucose 98 with hemoglobin A1c 5.6 on 05/29/2023. Acute sinusitis Anemia (05/16/22) hemoglobin 13.0 with hematocrit 40.6 on 05/16/2022. Hemoglobin 12.4 with vitamin B12 408 and folic acid greater than 24 with iron 61 with 22% saturation and ferritin 80 on 11/26/2022. Hemoglobin 13.2 on 03/03/2023. Hemoglobin 13.4 on 05/29/2023. At low risk for fall BMI 32.0-32.9,adult BMI 33.0-33.9,adult BMI 34.0-34.9,adult BMI 35.0-35.9,adult Chronic bilateral low back pain with bilateral sciatica MRI of the lumbar spine on 09/17/2023 reveals degenerative disc disease and facet arthropathy with severe neuroforaminal narrowing at L4-L5 on the right and bilaterally at L5-S1 worse on the left than the right. Chronic depression Chronic neck pain Claudication of lower extremity (~2022) arterial Doppler study of the lower extremities 08/06/2023 normal. No evidence of peripheral vascular disease. COVID-19 (10/04/20) COVID-19 (04/22/22) unvaccinated, 2nd episode, symptoms 04/22/2022 with home test positive 04/22/2022. Diarrhea Encounter for prostate cancer screening PSA 3.40 on 05/16/2022. PSA 2.40 on 05/29/2023. Encounter for screening for other viral diseases Family history of colon cancer in mother colonoscopy every 5 years starting at age 40 with last exam 2016. Normal colonoscopy 12/26/2022 except for diverticulosis. Recheck in 5 years. Fatigue Functional memory problem CT of the head on 06/21/2024 with changes with aging with chronic sinusitis noted. Liver cyst (04/26/21) patient was noted to have a 2.5 cm cyst the right lobe of the liver on CT of the chest on 04/26/2021. The patien
== END 2024-08-01 11:22 | disposition home or self-care (01) ==
PROVIDERS: Emergency Provider Nurse Practitioner Family; PCP Family Medicine
DX: J32.9 Chronic sinusitis, unspecified (principal); E78.2 Mixed hyperlipidemia; E66.9 Obesity, unspecified; Z68.32 Body mass index [BMI] 32.0-32.9, adult; Z86.16 Personal history of COVID-19
CPT/HCPCS: 99213; G0463

== ENCOUNTER 2024-09-12 14:59 | Outpatient (CLI) | payer MEDICARE, SELFPAY ==
--- NOTE | ~2024-09-12 | CT_ITS ---
EXAMINATION: CT sinus wo con DATE: 09/12/2024 15:18 INDICATION: Chronic maxillary sinusitis. TECHNIQUE: Computed tomography (CT) of the paranasal sinuses was performed without intravenous contra st. Iterative reconstruction technique was employed. The dose-length product was 333.52 mGy-cm. COMPARISON: Head CT 06/21/2024 FINDINGS: There is mild mucosal thickening in the right frontal recess and the bilateral anterior eth moid sinuses. There is mild mucosal thickening in left maxillary sinus. The sphenoid sinuses are donald r. There is complete opacification of right maxillary sinus and right ostiomeatal unit with thickenin g and sclerosis of the sinus red, consistent with chronic sinusitis. The left ostiomeatal unit is p atent. There are bilateral Martha cells. The nasal septum is at the midline. IMPRESSION: 1. Chronic sinusitis. Reviewed, dictated and finalized at location A. K CARRIER IMPRESSION: 1. Chronic sinusitis.
== END 2024-09-12 15:00 | disposition home or self-care (01) ==
PROVIDERS: PCP Family Medicine; Visit Provider Otolaryngology
DX: J32.0 Chronic maxillary sinusitis (principal); R43.0 Anosmia
CPT/HCPCS: 70486

== ENCOUNTER 2024-11-14 10:31 | Emergency (ER) | payer MEDICARE, SELFPAY ==
[2024-11-14 10:37] VITALS: BP 152/71; PULSE 87; RESP 16; TEMP 36.4; O2SAT 97
[2024-11-14 11:30] LABS: EDCOVIDSCREEN Negative (Negative); EDINFLUASCREEN Negative (Negative); EDINFLUBSCREEN Negative (Negative)
--- NOTE | 2024-11-14 11:35 | ED.GENADULT ---
HPI - General Adult General Chief complaint: Upper Respiratory Infection Stated complaint: cough / bodyache History of Present Illness HPI narrative: Jhonathan Stephenson Presents with complaints of having severe congestion body aches green drainage from his nose coughing up green mucus has started 2 days ago. He states that today he is feeling worse. Related Data Home Medications ?Medication ?Instructions ?Recorded ?Confirmed ?Last Taken ?Type golimumab 12.5 mg/mL intravenous 12.5 mg IV DIRECTED 11/11/21 08/09/24 Unknown History solution (Simponi ARIA) meloxicam 15 mg tablet 15 mg PO DAILY pain 08/01/24 08/09/24 Unknown History Allergies Allergy/AdvReac Type Severity Reaction Status Date / Time Penicillins Allergy Mild Urticaria Verified 11/14/24 10:56 Sulfa (Sulfonamide Allergy Mild Hives Verified 11/14/24 10:56 Antibiotics) Review of Systems Review of Systems: All systems reviewed & are unremarkable except as noted in HPI and below PMFSH Past Medical History Medical History Functional memory problem CT of the head on 06/21/2024 with changes with aging with chronic sinusitis noted. BMI 34.0-34.9,adult Diarrhea At low risk for fall Chronic bilateral low back pain with bilateral sciatica MRI of the lumbar spine on 09/17/2023 reveals degenerative disc disease and facet arthropathy with severe neuroforaminal narrowing at L4-L5 on the right and bilaterally at L5-S1 worse on the left than the right. BMI 32.0-32.9,adult Claudication of lower extremity (~2022) arterial Doppler study of the lower extremities 08/06/2023 normal. No evidence of peripheral vascular disease. Paresthesia of both lower extremities (~06/2023) EMG and nerve conduction study of the lower extremities on 07/29/2023 reveals no neuropathy. Family history of colon cancer in mother colonoscopy every 5 years starting at age 40 with last exam 2017. Normal colonoscopy 12/26/2022 except for diverticulosis. Recheck in 5 years. Encounter for prostate cancer screening PSA 3.40 on 05/16/2022. PSA 2.40 on 05/29/2023. PSA 1.82 on 06/17/2024. Abnormal fasting glucose (05/16/22) fasting glucose 100 on 05/16/2022. Glucose 108 with hemoglobin A1c 5.8 on 11/26/2022. Fasting glucose 93 on 03/03/2023. Fasting glucose 98 with hemoglobin A1c 5.6 on 05/29/2023. Glucose 97 with hemoglobin A1c 6.0 with GFR 75 on 06/17/2024. Anemia (05/16/22) hemoglobin 13.0 with hematocrit 40.6 on 05/16/2022. Hemoglobin 12.4 with vitamin B12 408 and folic acid greater than 24 with iron 61 with 22% saturation and ferritin 80 on 11/26/2022. Hemoglobin 13.2 on 03/03/2023. Hemoglobin 13.4 on 05/29/2023. BMI 33.0-33.9,adult Obesity (BMI 30.0-34.9) Macular pucker, left eye COVID-19 (04/22/22) unvaccinated, 2nd episode, symptoms 04/22/2022 with home test positive 04/22/2022. Chronic neck pain Liver cyst (04/26/21) patient was noted to have a 2.5 cm cyst the right lobe of the liver on CT of the chest on 04/26/2021. The patient was reassured BMI 35.0-35.9,adult Recurrent sinusitis CT of the brain on 06/21/2024 reveals chronic sinusitis. Mixed hyperlipidemia Labs from direct chill caster on 09/16/2021 with total cholesterol 175, HDL 45, triglycerides 149 and LDL 106 with AST 27 and CK 117. Total cholesterol 86, triglycerides 37, HDL 54, LDL 21 on 11/26/2022. Cholesterol 102, triglycerides 93, HDL 48, LDL 36 with ratio of 2.1 on 05/29/2023. Cholesterol 97, triglycerides 83, HDL 51, LDL 29 with ratio of 1.9 on 06/17/2024. Acute sinusitis Fatigue Post-COVID syndrome persistent fatigue, loss of taste and smell COVID-19 (10/04/20) Nocturia Encounter for screening for other viral diseases Periodic limb movement disorder Severe periodic limb movement disorder with index of 137.9 on 11/03/2019. Iron 61 with 22% saturation and ferritin 80 on 11/26/2022. Chronic depression Surgical History Surgical History H/O eye surgery Family History Family History Father Cerebrovascular accident, Onset Age: 72 Family history of heart disease in male family member before age 55 Hypertension, Onset Age: 72 Mother Family history of Parkinson's disease Carcinoma of colon Hypertension Patient's mother is , Onset Age: 80 Sibling Patient's brother is in good health Grandparent Family history of cardiovascular disease, Onset Age: 85 Cerebrovascular accident, Onset Age: 60 Social History Social History Smoking status: Never smoker Alcohol intake: never Substance use: never Substance use type: does not use Lack of Transportation: No Lack of Food: Never True Current Housing: I Have Housing Concerned About Future Housing: No Difficulty Paying Gas/Electric Bills: No Difficulty Paying for Meds: No Currently Unemployed: No Education: Master's Degree or Higher Difficulty w/ Childcare or Family Care: No Living arrangements: with family Gender identity (if verbalized by the patient): Male Spiritual care concerns: No Exam Narrative: GENERAL: well-nourished, and in no acute distress. HEAD: Normocephalic, atraumatic. EYES: PERRLA and EOMI. ENT: Positive sinus pressure she has maxillary and frontal, positive rhinorrhea. Mucous membranes moist. Oropharynx without tonsillar hypertrophy exudate or other lesions. Bilateral TMs pearly woody nonbulging NECK: Supple. No adenopathy or masses. No carotid bruits or JVD CHEST: Clear to auscultation. No respiratory distress. No wheezes rales or rhonchi HEART: Regular rate and rhythm. No murmur heard. Normal peripheral pulses. EXTREMITIES: Normal range of motion. No edema. SKIN: Warm, dry, no rash. NEURO: No focal deficits. Alert and oriented x3. PSYCH: Normal mood and affect. Course Course Level of Care: Express Care Visit Vital Signs Vital signs: Vital Signs Temperature 36.4 C L 11/14/24 10:37 Pulse Rate 87 11/14/24 10:37 Respiratory Rate 16 11/14/24 10:37 Blood Pressure 152/71 H 11/14/24 10:37 Pulse Oximetry 97 11/14/24 10:37 Oxygen Delivery Room Air 11/14/24 10:37 Temperature 36.4 C L 11/14/24 10:37 Pulse Rate 87 11/14/24 10:37 Respiratory Rate 16 11/14/24 10:37 Blood Pressure 152/71 H 11/14/24 10:37 Pulse Oximetry 97 11/14/24 10:37 Oxygen Delivery Room Air 11/14/24 10:37 Medical Decision Making MDM Narrative Medical decision making narrative: 74 year old presents with URI symptoms thick green discharge from his nose coughing up green discharge body aches not feeling well for 2 days worse today. He explained that he does have a history recurrent acute sinus infections and he is actually scheduled to have surgery in December for his sinuses with Dr. Garcia. He is also on immunosuppressant medication for his arthritis. I explained to him that this does sound like a possible acute sinusitis however typically wait 7-10 days for treatment. With his history being immunosuppressed and history of acute sinusitis I will start him on treatment today. He states that he is going out of town soon and would appreciate try treatment to ensure he gets better and not any worse. He is concerned that this will go to his chest and he will get pneumonia. He is allergic to penicillins so will start him on doxycycline. Also let him know that his flu and covid were negative today Medical Records Medical records reviewed: Yes I reviewed the external patient's medical records. Vital Signs Vital Signs: Vital Signs Temperature 36.4 C L 11/14/24 10:37 Pulse Rate 87 11/14/24 10:37 Respiratory Rate 16 11/14/24 10:37 Blood Pressure 152/71 H 11/14/24 10:37 Pulse Oximetry 97 11/14/24 10:37 Oxygen Delivery Room Air 11/14/24 10:37 Temperature 36.4 C L 11/14/24 10:37 Pulse Rate 87 11/14/24 10:37 Respiratory Rate 16 11/14/24 10:37 Blood Pressure 152/71 H 11/14/24 10:37 Pulse Oximetry 97 11/14/24 10:37 Oxygen Delivery Room Air 11/14/24 10:37 vitals reviewed by me. Lab Data Lab results reviewed: Yes I reviewed the patient's lab results. Labs: Lab Results 11/14/24 Range/Units 10:40 POC Influenza A Ag Negative (Negative) POC Influenza B Ag Negative (Negative) POC SARS CoV-2 Ag Negative (Negative) Discharge Plan Discharge Clinical Impression: Acute bacterial sinusitis Patient Disposition: Home, Self-Care Condition: Stable Instructions: Antibiotic Form Additional Instructions: Start the Doxycycline as ordered Push oral hydration/ get plenty of rest Follow up with your PCP in 3-5 days to ensure you are improving If you develop any worsening symptoms or concerns proceed to the ER. Patient Language: Kinyarwanda Prescriptions: New doxycycline hyclate 100 mg capsule 100 mg PO DAILY Qty: 10 0RF No Action fluticasone propionate [Flonase Allergy Relief] 50 mcg/actuation spray,suspension 1 spray intranasal BID Qty: 16 0RF Rx Instructions: administer into each nostril meloxicam 15 mg tablet 15 mg PO DAILY Simponi ARIA 12.5 mg/mL solution 12.5 mg IVPB DIRECTED Patient Comments: IV infusion every 2 months by dentures lab technician 2 milligrams/kilogram Q 8 weeks IV aspirin [Adult Low Dose Aspirin] 81 mg tablet,delayed release (DR/EC) 81 mg PO DAILY Qty: 30 11RF amlodipine 5 mg tablet 5 mg PO DAILY Qty: 90 3RF levothyroxine 100 mcg tablet 100 mcg PO DAILY Qty: 90 3RF rosuvastatin [Crestor] 20 mg tablet 20 mg PO DAILY Qty: 90 3RF hydrochlorothiazide 12.5 mg tablet 12.5 mg PO DAILY Qty: 90 3RF lisinopril 40 mg tablet 40 mg PO DAILY Qty: 90 3RF metoprolol succinate 50 mg tablet extended release 24 hr 50 mg PO DAILY Qty: 90 3RF Follow-up/Referrals: Nicholas Magalalnes MD [Primary Care Provider] - Time of Disposition: 11:41
--- OUTSIDE RECORDS SUMMARY | 2024-11-14 11:37 | XMS_ITS | Referral Summary ---
Author Organization [facility] [address] [facility] Address [address] [place] [id number] Care Team Providers Care Media Liaison Officer Name Role Phone Nicholas Magallanes MD Primary Care Provider [phone] Hank Talbot MD Unavailable [phone] Arvind Hickey MD Unavailable [phone] Encounters Date Type Department Care Team Description 09/19/2024 Orders Only [facility] [address] [place] [phone] Michaela Weinberg PA 09/14/2024 Telephone [facility] [address] [place] [phone] Michaela Weinberg PA Labs Requested from PCP 09/14/2024 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 Visit [facility] [address] [place] [phone] Michaela Weinberg PA Psoriasis with arthropathy (HCC) (Primary Dx); Psoriasis; Chronic midline low back pain, unspecified whether sciatica present; 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 from Last 3 Months Allergies Active Allergy Reactions Criticality Noted Date Comments Penicillins Rash Medium Sulfa (Sulfonamide Antibiotics) Hives Medium 04/12 Medications levothyroxine (SYNTHROID) 100 mcg tablet Take 1 tablet (100 mcg total) by mouth institution librarian before breakfast Active lisinopriL (PRINIVIL,ZESTR IL) 40 mg tablet Take 1 tablet (40 mg total) by mouth daily Active hydroCHLOROthia zide (MICROZIDE) 12.5 mg capsule Take 1 capsule (12.5 mg total) by mouth daily Active multivit-minera t-pved-oftyxh tablet Take by mouth Active cholecalciferol (VITAMIN D-3) 33745 unit tablet Take 1 tablet (50,000 Units total) by mouth once a week Active golimumab (SIMPONI ARIA) 12.5 mg/mL solutionIndicat ions:Rheumatoid Arthritis Infuse 2mg/kg IV at weeks 0, 4, then every 8 weeks. 0 Active metoprolol XL (TOPROL-XL) 50 mg extended release tablet Take 1 tablet (50 mg total) by mouth daily 1 Active amLODIPine (NORVASC) 5 mg tablet Take 1 tablet (5 mg total) by mouth daily 1 Active rosuvastatin (CRESTOR) 20 mg tablet Take 1 tablet (20 mg total) by mouth nightly at bedtime. 1 Active aspirin 81 mg enteric coated tablet Take 1 tablet (81 mg total) by mouth daily Active meloxicam (MOBIC) 15 mg tablet TAKE 1 TABLET BY MOUTH EVERY DAY 90 tablet 3 Active semaglutide (Ozempic) 0.25 mg or 0.5 mg(2 mg/1.5 mL) pen injector injection Inject 0.25 mg under the skin once a week Active DULoxetine DR (CYMBALTA) 30 mg capsuleIndicati ons:Neuropathic pain of both feet TAKE 1 CAPSULE BY MOUTH EVERY DAY 90 capsule 1 4 Active predniSONE (DELTASONE) 20 mg tablet TAKE 2 TABLETS DAILY FOR 3 DAYS, THEN 1 TABLET DAILY FOR 3 DAYS 4 Active fluticasone propionate (FLONASE) 50 mcg/actuation nasal spray INSTILL 1 SPRAY INTO EACH NOSTRIL TWICE DAILY 4 Active Active Problems Problem Noted Date Diagnosed Date Chronic midline low back pain 03/03/2024 Assessment & Plan (09/14/2024 11:57 AM RETAIL SALES MANAGER): Unable to stand for more than 10-15 minutes without pain in his low back, hips, and knees, then has to sit. Sitting causes stiffness in his low back and hips and will wake every 3-4 hours at night due to pain. Feels best when sleeping in a recliner. Takes about 1 hour to limber up in the mornings. Pain improves with heat and massage. No benefit with PT, gabapentin, or Cymbalta. Ortho noted hip pain as referred back pain in the past. Past x-rays revealed mild lumbar spondylosis and bilateral hip OA. Updated MRI L-spine (09/2023) showed severe bilateral neural foraminal narrowing (L>R) at L5-S1. Based on MRI findings, symptoms are likely due referred pain from the spine. He was seen by [facility] and failed bilateral L3-4 and L5-S1 injections. They are considering epidural injection next and previously I encouraged him to discuss this with them however he has not followed up with PM&R. Continue meloxicam 15mg daily as he does notice some benefit with this. Previously discussed possibility of assistive devices. His prefers a Rolator walker while he may consider a cane. Advised to further discuss with his PCP as these devices may be covered under medicare if ordered by his PCP. Assessment & Plan (06/16/2024 12:31 PM CDT): Unable to stand for more than 10-15 minutes without pain in his low back, hips, and knees, then has to sit. Sitting causes stiffness in his low back and hips and will wake every 3-4 hours at night due to pain. Feels best when sleeping in a recliner. Takes about 1 hour to limber up in the mornings. Pain improves with heat and massage. No benefit with PT, gabapentin, or Cymbalta. Ortho noted hip pain as referred back pain in the past. Past x-rays revealed mild lumbar spondylosis and bilateral hip OA. Updated MRI L-spine (09/2023) showed severe bilateral neural foraminal narrowing (L>R) at L5-S1. Based on MRI findings, symptoms are likely due referred pain from the spine. He was seen by [facility] and failed bilateral L3-4 and L5-S1 injections. They are considering epidural injection next and encouraged him to discuss this with them. Continue meloxicam 15mg daily as he does notice some benefit with this. Briefly discussed possibility of assistive devices. His prefers a Rolator walker while he may consider a cane. Advised to further discuss with his PCP as these devices may be covered under medicare if ordered by his PCP. Assessment & Plan (03/03/2024 12:27 PM CDT): Unable to stand for more than 10-15 minutes without pain in his low back, hips, and knees, then has to sit. Sitting causes stiffness in his low back and hips and will wake every 3-4 hours at night due to pain. Takes about 1 hour to limber up in the mornings. Pain improves with heat and massage. No benefit with PT. Ortho noted hip pain as referred back pain in the past. Past x-rays revealed mild lumbar spondylosis and bilateral hip OA. Updated MRI L-spine (09/2023) showed severe bilateral neural foraminal narrowing (L>R) at L5-S1. Based on MRI findings, symptoms are likely due referred pain from the spine. [facility] and failed bilateral L3-4 and L5-S1 injections. They are considering epidural injection next but has f/u next with PM&R on 04/27. Continue meloxicam 15mg daily as he does notice some benefit with this. Briefly discussed possibility of assistive devices. His prefers a Rolator walker while he may consider a cane. Advised to further discuss with his PCP as these devices may be covered under medicare if ordered by his PCP. Chronic pain of right knee 01/26/2024 Overview (04/26/2024): Right knee pain for 6 months H/o psoriatic arthritis - XR 01/2024 IMPRESSION: 1. Mild tricompartmental right knee osteoarthritis with an intra-articular loose body. Assessment & Plan (04/27/2024 5:34 PM CDT): Reviewed XR. DIscussed IASI - wants to hold off at this time. Assessment & Plan (01/26/2024 1:51 PM CDT): Right knee XR Consider Right knee CSI in future Neuropathic pain of both feet 01/26/2024 Overview (01/26/2024): Images from the original note were not included. EMG 07/2023 Assessment & Plan (04/27/2024 5:34 PM CDT): Gabapentin without benefit and with SE. Not taking amitriptyline. Trial duloxetine 30mg Qday. Assessment & Plan (01/26/2024 5:54 PM CDT): Trial gabapentin 300mg QHS Cervical radiculopathy 01/26/2024 Overview (01/26/2024): MRI C-spine 2014 1. LEFT PARACENTRAL DISC PROTRUSION AT C5-C6 THAT MINIMALLY INDENTS THE LEFT ANTERIOR MARGIN OF SPINAL CORD. 2. VERY MINIMAL CENTRAL DISC PROTRUSION AT C3-C4 AND EVEN LESS AT C4-C5. 3. NO OTHER SIGNIFICANT CERVICAL SPINE ABNORMALITY SEEN. Interpreting Physician: DR SARAH LAU M.D. Read on: Sep 20 2015 5:11P Transcribed by: carlos On: Sep 21 2015 8:25A Approved Electronically by: JUDI [place], DR SMITH on: Sep 21 2015 4:14P Assessment & Plan (04/27/2024 5:34 PM CDT): Not a main issue at this time - monitor. Assessment & Plan (01/26/2024 5:54 PM CDT): Reports least of his issues at this time. No gait issues/instability/clonus noted. Consider updated imaging in the future. Hypertension 01/06/2023 Hypothyroidism 01/06/2023 CME (cystoid macular edema), left 01/06/2023 Assessment & Plan (07/27/2024 12:56 PM CDT): -follows with Dr. Vivas -s/p STK x 3; q3mo -IOP asymmetric today 10/17mmHg; will watch annually to monitor ONH changes, if any -follows with Dr. Vivas next week -me in 1 year Assessment & Plan (03/24/2023 3:20 PM CDT): 2 month follow-up -h/o cataract extraction (CE)/IOL both eyes (OU) then pars plana vitrectomy (PPV)/MP left eye (OS) at [facility] -cystoid macular edema (CME) stable/slightly worsened with few cystic pockets with decreased pred and ketorolac bid left eye (OS) 1 month ago -pt still reporting blur left eye (OS) -increase pred and ketorolac qid left eye (OS) -refer to retina service within 4-6 weeks for evaluation with OCT mac Assessment & Plan (02/10/2023 2:11 PM CDT): 1 month follow-up -h/o cataract extraction (CE)/IOL both eyes (OU) then pars plana vitrectomy (PPV)/MP left eye (OS) at [facility] -cystoid macular edema (CME) improved left eye (OS) today but still with some cystic pockets -pt still reporting blur left eye (OS) -cont pred and ketorolac; decrease to bid left eye (OS) -RTC 1 month OCT mac and DFE or sooner prn Assessment & Plan (01/06/2023 3:35 PM CDT): New pt with complaints of blur since having cataract extraction (CE)/IOL both eyes (OU) at [facility] -pt reports he also developed a macular pucker left eye (OS) after surgery; then had pars plana vitrectomy (PPV)/MP also at [facility] -he reports vision has been distorted and blurred since both procedures (+)mild cystoid macular edema (CME) left eye (OS) today; reviewed OCT mac with pt and pt -will start ketorolac and pred qid left eye (OS) -RTC 3-4 weeks for repeat DFE and OCT mac or sooner with issues Pseudophakia of both eyes 01/06/2023 Assessment & Plan (07/27/2024 12:55 PM CDT): -s/p YAG cap OD by Dr. Zapien -excellent acuities today -follow Assessment & Plan (02/10/2023 1:29 PM CDT): -centered both eyes (OU) with 1+ PCO right eye (OD) only -not visually significant today; BCVA 20/20 right eye (OD) and 20/30 left eye (OS) -new MRx Assessment & Plan (01/06/2023 3:36 PM CDT): -centered both eyes (OU) with 1+ PCO right eye (OD) only -not visually significant today; BCVA 20/20 right eye (OD) and 20/30 left eye (OS) -new MRx not released to pt today given retinal findings; once cystoid macular edema (CME) resolves, ok to release new MRx -follow Lamellar macular hole of right eye 01/06/2023 Assessment & Plan (07/27/2024 12:56 PM CDT): -follows with Dr. 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 Could consider Cosentyx IV in the future if necessary for skin and joints. Assessment & Plan (06/16/2024 11:05 AM CDT): Improved with Otezla but stopped this in 05/2023 due to s/e with only slight recurrence of psoriasis on his back. Could consider Cosentyx IV in the future if necessary for skin and joints. Assessment & Plan (03/03/2024 12:21 PM CDT): Improved with Otezla but stopped this in 05/2023 due to s/e with only slight recurrence of psoriasis on his back. Could consider Cosentyx IV in the future if necessary for skin and joints. Assessment & Plan (11/26/2023 12:10 PM RETAIL SALES MANAGER): Improved with Otezla but stopped this in 05/2023 due to s/e with only slight recurrence of psoriasis on his back. Could consider Cosentyx IV in the future if necessary for skin and joints. Assessment & Plan (08/27/2023 12:44 PM RETAIL SALES MANAGER): Improved with Otezla but stopped this in 05/2023 2/2 s/e without any significant worsening of his skin. Assessment & Plan (05/26/2023 12:54 PM CDT): Improved with Otezla but will hold 2/2 s/e. Assessment & Plan (03/03/2023 11:43 AM CDT): Kenalog IM given 11/12/22 with significant improvement but not complete resolve and today continues to have diffuse involvement of psoriasis on arms, legs, and torso. Will start Otezla (through samples provided today). Continuing simponi aria in combination with Otezla as TNFi is providing good relief of joint complaints and there have been studies showing no significant adverse effects of concomminent Otezla and TNFi therapies. Assessment & Plan (12/02/2022 11:29 AM RETAIL SALES MANAGER): Kenalog IM given 11/12/22 with significant improvement. Still has some faint pink patches with mild scale on torso and lower legs. He just had simponi aria infusion on 11/18 so will monitor for improvement of psoriasis. If no benefit or it begins to worsen again, then may need to consider changing biologics as topicals are unlikely to be of much benefit due to BSA involvement. Assessment & Plan (11/12/2022 4:47 PM RETAIL SALES MANAGER): Exacerbation involving multiple small plaques all over his upper and lower extremities and torso. Noted worsening after recent URI and reports similar reaction in the past when he had strep throat. Denies fevers or sore throat. Hx of sinus congestion but has been ongoing for years and not seen ENT. Will give kenalog IM to quickly resolve psoriasis. He has another simponi aria infusion next week (11/18) so will monitor for improvement of psoriasis. If no benefit or it begins to worsen again, then may need to consider changing biologics as topicals are unlikely to be of much benefit due to BSA involvement. Follow up at next scheduled visit in ~3 weeks. Sooner if needed. Changes in vision 08/19/2022 Assessment & Plan (03/03/2023 10:53 AM CDT): Notes change in his vision s/p cataract removal and was also told he had macular pucker. Saw [facility] who started ketorolac and prednisolone drops for cystoid macular edema (OS). Has f/u again in 03/2023. Assessment & Plan (12/02/2022 11:29 AM RETAIL SALES MANAGER): Notes change in his vision s/p cataract removal and was also told he had macular pucker. Recommend he seek 2nd opinion at [facility] due to his continued concerns. Given name of Dr. Mayo. He is going to discuss referral with PCP at his upcoming visit. Assessment & Plan (11/12/2022 4:57 PM RETAIL SALES MANAGER): Notes change in his vision s/p cataract removal and was also told he had macular pucker. Recommend he seek 2nd opinion at [facility] due to his continued concern. Given name of Dr. Mayo. He is going to discuss referral with PCP. Assessment & Plan (08/19/2022 12:47 PM RETAIL SALES MANAGER): Notes change in his vision s/p cataract removal and was also told he had macular pucker. Recommend he seek 2nd opinion at [facility] due to his continued concerns and he will further discuss referral with his PCP. 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) 05/29/2021 snf current use of therapeutic drug 2019 Overview (08/17/2020): Hepatitis negative: 08/2020 TB Quant negative: 08/2020 Assessment & Plan (09/14/2024 11:33 AM RETAIL SALES MANAGER): TB quant negative: 08/2020 Hepatitis negative: 08/2020 Assessment & Plan (06/16/2024 11:05 AM CDT): TB quant negative: 08/2020 Hepatitis negative: 08/2020 Assessment & Plan (03/03/2024 12:28 PM CDT): TB quant negative: 08/2020 Hepatitis negative: 08/2020 Assessment & Plan (11/26/2023 10:04 AM RETAIL SALES MANAGER): TB quant negative: 08/2020 Hepatitis negative: 08/2020 Assessment & Plan (08/27/2023 12:44 PM RETAIL SALES MANAGER): TB quant negative: 08/2020 Hepatitis negative: 08/2020 Assessment & Plan (05/26/2023 12:55 PM CDT): TB quant negative: 08/2020 Hepatitis negative: 08/2020 Assessment & Plan (03/03/2023 10:49 AM CDT): TB quant negative: 08/2020 Hepatitis negative: 08/2020 Assessment & Plan (12/02/2022 11:30 AM RETAIL SALES MANAGER): TB quant negative: 08/2020 Hepatitis negative: 08/2020 Assessment & Plan (11/12/2022 4:45 PM RETAIL SALES MANAGER): TB quant negative: 08/2020 Hepatitis negative: 08/2020 Assessment & Plan (08/19/2022 12:49 PM RETAIL SALES MANAGER): TB quant negative: 08/2020 Hepatitis negative: 08/2020 Assessment & Plan (05/22/2022 10:53 AM CDT): TB quant negative: 08/2020 Hepatitis negative: 08/2020 Assessment & Plan (01/29/2022 11:51 AM CDT): TB quant negative: 08/2020 Hepatitis negative: 08/2020 Assessment & Plan (10/22/2021 11:47 AM RETAIL SALES MANAGER): TB quant negative: 08/2020 Hepatitis negative: 08/2020 Assessment & Plan (07/29/2021 12:17 PM CDT): TB quant negative: 08/2020 Hepatitis negative: 08/2020 Assessment & Plan (04/29/2021 11:32 AM CDT): TB quant negative: 08/2020 Hepatitis negative: 08/2020 Assessment & Plan (01/28/2021 10:57 AM CDT): TB quant negative: 08/2020 Hepatitis negative: 08/2020 Assessment & Plan (11/16/2020 11:12 AM RETAIL SALES MANAGER): TB quant negative: 08/2020 Hepatitis negative: 08/2020 Assessment & Plan (08/30/2020 12:25 PM RETAIL SALES MANAGER): TB quant negative: 08/2020 Hepatitis negative: 08/2020 Assessment & Plan (08/15/2020 2:27 PM RETAIL SALES MANAGER): TB quant negative: 04/2019, repeat today Check hepatitis panel today. Spondylosis of lumbar region without myelopathy or radiculopathy 08/15/2020 Overview (04/27/2024): Images from the original note were not included. Bilateral L3-4 and L5-S1 LMBB 02/24/24 - no benefit - MRI L spine 09/17/23: Assessment & Plan (04/27/2024 5:33 PM CDT): Discussed we could consider LESI given he does have some numbness in the legs and some pain that radiates into the thighs. Not clearly radicula rbut he does have significant foraminal narrowing. Assessment & Plan (02/01/2024 4:30 PM CDT): Lumbar medial branch block at next visit, bilateral L3-L4, L5-S1 for consideration of ablation. Denies clearly radicular sx. Notes neuropathic pain only in the feet. Could consider LESI but given primarily axial pain will start with LMBB. Assessment & Plan (11/26/2023 11:22 AM RETAIL SALES MANAGER): Unable to stand for more than 10-15 minutes without pain in his low back, hips, and knees, then has to sit. Sitting causes stiffness in his low back and hips and will wake every 3-4 hours at night due to pain. Takes about 1 hour to limber up in the mornings. Pain improves with heat and massage. No benefit with PT. Ortho noted hip pain as referred back pain in the past. Past x-rays revealed mild lumbar spondylosis and bilateral hip OA. Updated MRI L-spine (09/2023) showed severe bilateral neural foraminal narrowing (L>R) at L5-S1. Based on MRI findings, symptoms are likely due to radicular symptoms from DJD. Recommend further treatment/management by pain management and will provide referral to PM&R at [facility]. Continue meloxicam 15mg daily as he does notice some benefit with this. Assessment & Plan (08/27/2023 12:48 PM RETAIL SALES MANAGER): Unable to stand for more than 10-15 minutes without pain in his low back, hips, and knees, then has to sit. Sitting causes stiffness in his low back and hips and will wake every 3-4 hours at night due to pain. Takes about 1 hour to limber up in the mornings. Pain improves with heat and massage. Ortho noted hip pain as referred back pain in the past. Hx of steroid cervical spinal injections per chiropractor in the past without benefit. Past x-rays revealed mild lumbar spondylosis and bilateral hip OA. MRI L-spine (05/2022) revealed multilevel DJD, mild central stenosis L4-5, and a few levels of foraminal stenosis. No benefit with PT. Likely symptoms are related to DJD. Continue meloxicam 15mg daily as he does notice some benefit with this. Will get updated MRI due to worsening pain complaints and peripheral symptoms. Depending on results, consider referral to pain management vs neurosurgeon. Assessment & Plan (05/26/2023 12:56 PM CDT): Unable to stand for more than 10-15 minutes without pain in his low back, hips, and knees, then has to sit. Sitting causes stiffness in his low back and hips and will wake every 3-4 hours at night due to pain. Takes about 1 hour to limber up in the mornings. Pain improves with heat and massage. Ortho noted hip pain as referred back pain in the past. Hx of steroid cervical spinal injections per chiropractor in the past without benefit. Past x-rays revealed mild lumbar spondylosis and bilateral hip OA. MRI L-spine (05/2022) revealed multilevel DJD. Likely symptoms are related to DJD. Continue meloxicam 15mg daily as he does notice benefit with this. Continue PT. Discussed referral to pain management for possible spinal steroid injections but he defers. Assessment & Plan (03/03/2023 10:51 AM CDT): Unable to stand for more than 10-15 minutes without pain in his low back, hips, and knees, then has to sit. Sitting causes stiffness in his low back and hips and will wake every 3-4 hours at night due to pain. Takes about 1 hour to limber up in the mornings. Pain improves with heat and massage. Ortho noted hip pain as referred back pain in the past. Hx of steroid cervical spinal injections per chiropractor in the past without benefit. Recent x-rays revealed mild lumbar spondylosis and bilateral hip OA. MRI L-spine (05/2022) revealed multilevel DJD. Likely symptoms are related to overlap of degenerative changes and inflammatory arthritis. Continue meloxicam 15mg daily as he does notice benefit with this. Continue PT. Discussed referral to pain management for possible spinal steroid injections which he will discuss further with his PCP. Assessment & Plan (12/02/2022 11:30 AM RETAIL SALES MANAGER): Unable to stand for more than 10-15 minutes without pain in his low back, hips, and knees, then has to sit. Sitting causes stiffness in his low back and hips and will wake every 3-4 hours at night due to pain. Takes about 1 hour to limber up in the mornings. Pain improves with heat and massage. Ortho noted hip pain as referred back pain in the past. Hx of steroid cervical spinal injections per chiropractor in the past without benefit. Recent x-rays revealed mild lumbar spondylosis and bilateral hip OA. MRI L-spine (05/2022) revealed multilevel DJD. Likely symptoms are related to overlap of degenerative changes and inflammatory arthritis. Continue meloxicam 15mg daily as he does notice benefit with this. Continue PT. Discussed referral to pain management for possible spinal steroid injections which he will discuss further with his PCP. Assessment & Plan (08/19/2022 12:45 PM RETAIL SALES MANAGER): Unable to stand for more than 10-15 minutes without pain in his low back, hips, and knees, then has to sit. Sitting causes stiffness in his low back and hips and will wake every 3-4 hours at night due to pain. Takes about 1 hour to limber up in the mornings. Pain improves with heat and massage. Ortho noted hip pain as referred back pain in the past. Hx of steroid cervical spinal injections per chiropractor in the past without benefit. Recent x-rays revealed mild lumbar spondylosis and bilateral hip OA. MRI L-spine (05/2022) revealed multilevel DJD. Likely symptoms are related to overlap of degenerative changes and inflammatory arthritis. Continue meloxicam 15mg daily as he does notice benefit with this. Continue PT. Discussed referral to pain management for possible spinal steroid injections which he will discuss further with his PCP. Assessment & Plan (05/22/2022 2:44 PM CDT): Unable to stand for more than 10-15 minutes without pain in his low back, hips, and knees, then has to sit. Sitting causes stiffness in his low back and hips and will wake every 3-4 hours at night due to pain. Takes about 1 hour to limber up in the mornings. Pain improves with heat and massage. Ortho noted hip pain as referred back pain in the past. Hx of steroid cervical spinal injections per chiropractor in the past without benefit. Prior MRI (2014) did reveal degenerative changes and mild bulging discs in the lumbar spine. Recent x-rays revealed mild lumbar spondylosis and bilateral hip OA. Likely symptoms are related to overlap of degenerative changes and inflammatory arthritis. Continue meloxicam 15mg daily as he does notice benefit with this. Discussed pain management for possible spinal steroid injections however patient defers at this time and will try and do PT first. Has had brief relief with PT so will get MRI next as he is having symptoms suspicious for an S1 radiculopathy (bilateral 4th/5th toe paresthesias) and further imaging would help determine if he should be seen by pain management vs ortho spine next. Assessment & Plan (01/29/2022 11:52 AM CDT): Unable to stand for more than 10-15 minutes without pain in his low back, hips, and knees, then has to sit. Sitting causes stiffness in his low back and hips and will wake every 3-4 hours at night due to pain. Takes about 1 hour to limber up in the mornings. Pain improves with heat and massage. Ortho noted hip pain as referred back pain in the past. Hx of steroid cervical spinal injections per chiropractor in the past without benefit. Prior MRI (2014) did reveal degenerative changes and mild bulging discs in the lumbar spine. Recent x-rays revealed mild lumbar spondylosis and bilateral hip OA. Likely symptoms are related to overlap of degenerative changes and inflammatory arthritis. Continue meloxicam 15mg daily as he does notice benefit with this. Discussed pain management for possible spinal steroid injections however patient defers at this time and will try and do PT first. If no relief with PT, consider MRI next as he is having symptoms suspicious for an S1 radiculopathy (bilateral 4th/5th toe paresthesias) and further imaging would help determine if he should be seen by pain management vs ortho spine next. Continue PT. 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 Sitting causes stiffness in his low back and hips and will wake every 3-4 hours at night due to pain. Takes about 1 hour to limber up in the mornings. Pain improves with heat and massage. Denies previous PT. Ortho noted hip pain as referred back pain in the past. Hx of steroid cervical spinal injections per chiropractor in the past without benefit. Prior MRI (2014) did reveal degenerative changes and mild bulging discs in the lumbar spine. Recent x-rays revealed mild lumbar spondylosis and bilateral hip OA. Likely symptoms are related to overlap of degenerative changes and inflammatory arthritis. Did not start PT as previously ordered. Continue meloxicam 15mg daily as he does notice benefit with this. Discussed pain management for possible spinal steroid injections however patient defers at this time and will try and do PT first. If no relief with PT, consider MRI next as he is having symptoms suspicious for an S1 radiculopathy (bilateral 4th/5th toe paresthesias) and further imaging would help determine if he should be seen by pain management vs ortho spine next. Assessment & Plan (07/29/2021 12:17 PM CDT): Unable to stand for more than 10-15 minutes without pain in his low back, hips, and knees, then has to sit. Sitting causes stiffness in his low back and hips. Pain improves with heat and massage. Denies previous PT. Ortho noted hip pain as referred back pain in the past. Hx of steroid cervical spinal injections per chiropractor in the past without benefit. Prior MRI (2014) did reveal degenerative changes and mild bulging discs in the lumbar spine. Recent x-rays revealed mild lumbar spondylosis and bilateral hip OA. Likely symptoms are related to overlap of degenerative changes and inflammatory arthritis. Did not start PT yet so will renew referral for low back pain and balance/stability. Continue meloxicam 15mg daily as he does notice benefit with this. Assessment & Plan (04/29/2021 12:03 PM CDT): Unable to stand for more than 10-15 minutes without pain in his low back, hips, and knees, then has to sit. Sitting causes stiffness in his low back and hips. Pain improves with heat and massage. Denies previous PT. Ortho noted hip pain as referred back pain in the past. Hx of steroid cervical spinal injections per chiropractor in the past without benefit. Prior MRI (2014) did reveal degenerative changes and mild bulging discs in the lumbar spine. Recent x-rays revealed mild lumbar spondylosis and bilateral hip OA. Likely symptoms are related to overlap of degenerative changes and inflammatory arthritis. Will give referral to PT however patient unsure if he will start this as [place] Continue meloxicam 15mg daily as he does notice benefit with this. Assessment & Plan (01/28/2021 12:06 PM CDT): Unable to stand for more than 10-15 minutes without pain in his low back, hips, and knees, then has to sit. Sitting causes stiffness in his low back and hips. Pain improves with heat and massage. Denies PT. Ortho noted hip pain as referred back pain in the past. Hx of steroid cervical spinal injections per chiropractor in the past without benefit. Prior MRI (2014) did reveal degenerative changes and mild bulging discs in the lumbar spine. Recent x-rays revealed mild lumbar spondylosis and bilateral hip OA. Likely symptoms are related to overlap of degenerative changes and inflammatory arthritis. Consider referral to PT vs pain management however defers continues to defer at this time. Continue meloxicam 15mg daily as he does notice benefit with this. Assessment & Plan (11/16/2020 11:12 AM RETAIL SALES MANAGER): Unable to stand for more than 10-15 minutes without pain in his low back, hips, and knees, then has to sit. Sitting causes stiffness in his low back and hips. Pain improves with heat and massage. Denies PT. Ortho noted hip pain as referred back pain in the past. Hx of steroid cervical spinal injections per chiropractor in the past without benefit. Prior MRI (2014) did reveal degenerative changes and mild bulging discs in the lumbar spine. Recent x-rays revealed mild lumbar spondylosis and bilateral hip OA. Likely symptoms are related to overlap of degenerative changes and inflammatory arthritis. Consider referral to PT vs pain management in the future as patient defers at this time. Assessment & Plan (08/30/2020 12:26 PM RETAIL SALES MANAGER): Unable to stand for more than 10-15 minutes without pain in his low back, hips, and knees, then has to sit. Sitting causes stiffness in his low back and hips. Pain improves with heat and massage. Denies PT. Ortho noted hip pain as referred back pain in the past. Hx of steroid cervical spinal injections per chiropractor in the past without benefit. Prior MRI (2014) did reveal degenerative changes and mild bulging discs in the lumbar spine. Recent x-rays revealed mild lumbar spondylosis and bilateral hip OA. Likely symptoms are related to overlap of degenerative changes and inflammatory arthritis. Consider referral to PT vs pain management in the future as patient defers at this time. Assessment & Plan (08/15/2020 2:31 PM RETAIL SALES MANAGER): Unable to stand for more than 10-15 minutes without pain in his low back, hips, and knees, then has to sit. Sitting causes stiffness in his low back and hips. Pain improves with heat and massage. Denies PT. Ortho noted hip pain as referred back pain in the past. Hx of steroid spinal injections in the pats for cervical spine. Prior MRI (2014) did reveal degenerative changes and mild bulging discs in the lumbar spine. Likely symptoms are related to overlap of degenerative changes and inflammatory arthritis. Will order x-ray of the lumbars spine and pelvis. May consider PT depending on results. Psoriasis with arthropathy 01/21/2012 Overview (08/30/2020): Labs (08/15/2020): negative AVISE (08/15/2020): +MALKI 1:640 dense fine speckled, cb-cap bc4d (77), anti-TPO (110) Hepatitis negative: 08/2020 TB Quant negative: 08/2020 X-ray L-spine (02/07/2019): mild/mod lumbar spondylosis. Possible partial SI joint fusion. CXR (09/08/2018): negative XR pelvis (08/15/2020): mild hip OA XR L-spine (08/15/2020): mild decreased disc height L4-5, endplate osteophytes, multilevel facet OA sever in lower lumbar spine XR b/t hands (08/15/2020): mild/mod OA, lunotriquetral coalition US R hand/wrist (08/24/2020): Moderate synovial thickening/effusion with grade 2 power Doppler at the wrist. Moderate 2nd MCP and PIP, marked 3rd MCP and PIP synovial thickening with grade 1 power Doppler of 3rd PIP on examination which will have to be correlated clinically. Assessment & Plan (09/14/2024 11:55 AM RETAIL SALES MANAGER): Low cdai. Remains on Simponi aria IV since 08/24/2020 with overall improvement of peripheral joint complaints. MTX caused GI upset in the past however could consider retrying this in the future as combination therapy with simponi aria if needed. Otezla caused brain fog/mood changes. Psoriasis slightly worse on his back so could consider Cosentyx IV in the future if necessary for better skin and joint coverage. Continue Simponi aria 2mg/kg IV [id number]. Will defer labs today as he reports just having done these through his PCP. Will request labs for further review. Follow up in 6 months. Sooner if needed. Assessment & Plan (06/16/2024 12:26 PM CDT): Low cdai. Restarted Simponi aria IV 08/24/2020 with improvement of peripheral joint complaints. MTX caused GI upset in the past however could consider retrying this in the future as combination therapy with simponi aria if needed. Otezla caused brain fog/mood changes. Psoriasis slightly worse on his back so could consider Cosentyx IV in the future if necessary for better skin and joint coverage. Continue Simponi aria 2mg/kg IV [id number]. Will defer labs today as he is having these done next month with PCP. Follow up in 3-4 months. Sooner if needed. Assessment & Plan (03/03/2024 11:58 AM CDT): Low cdai. Restarted Simponi aria IV 08/24/2020 with improvement of peripheral joint complaints. MTX caused GI upset in the past however could consider retrying this in the future as combination therapy with simponi aria if needed. Otezla caused brain fog/mood changes. Psoriasis slightly worse on his back so could consider Cosentyx IV in the future if necessary for better skin and joint coverage. Continue Simponi aria 2mg/kg IV [id number]. Routine labs today. Follow up in 3 months. Sooner if needed. Assessment & Plan (11/26/2023 12:12 PM RETAIL SALES MANAGER): Low cdai. Restarted Simponi aria IV 08/24/2020 with improvement of peripheral joint complaints. MTX caused GI upset in the past however could consider retrying this in the future as combination therapy with simponi aria if needed. Otezla caused brain fog/mood changes. Psoriasis slightly worse on his back so could consider Cosentyx IV in the future if necessary for better skin and joint coverage. Continue Simponi aria 2mg/kg IV [id number]. Follow up in 3 months. Sooner if needed. Seen with Dr. Hickey. Assessment & Plan (08/27/2023 12:51 PM RETAIL SALES MANAGER): Low-moderate cdai. Restarted Simponi aria IV 08/24/2020 with improvement of peripheral joint complaints. MTX caused GI upset in the past however could consider retrying this in the future as combination therapy with simponi aria if needed. Otezla caused brain fog/mood changes. Continue Simponi aria 2mg/kg IV [id number]. Follow up in 3 months. Sooner if needed. Assessment & Plan (05/26/2023 12:54 PM CDT): Low cdai. Restarted Simponi aria IV 08/24/2020 with improvement of peripheral joint complaints and was felt to be helping his psoriasis however URI in 11/2022 exacerbated plaque psoriasis so given kenalog IM 11/12/22 with improvement but not complete resolve so started Otezla but noticing brain fog and tinnitus. MTX caused GI upset in the past however could consider retrying this in the future as combination therapy with simponi aria if needed. Will hold Otezla and monitor for improvement of brain fog/tinnitus. If no improvement then consider holding meloxicam as that may be causing tinnitus. Continue Simponi aria 2mg/kg IV [id number]. Follow up in 3 months. Sooner if needed. Seen with Dr. Martins. Assessment & Plan (03/03/2023 11:44 AM CDT): Moderate cdai. Restarted Simponi aria IV 08/24/2020 with improvement of peripheral joint complaints and was felt to be helping his psoriasis however URI in 11/2022 exacerbated plaque psoriasis so given kenalog IM 11/12/22 with improvement but not complete resolve. MTX caused GI upset in the past however could consider retrying this in the future as combination therapy with simponi aria if needed. Today, he continues to have diffuse psoriasis on torso, legs, and arms suggesting simponi aria is not providing much benefit for his skin. He has mild synovitis and tenderness on exam and notes worsening pain about 1-2 weeks before simponi aria suggesting it is still providing benefit for joint complaints. Continue Simponi aria 2mg/kg IV [id number]. Continue meloxicam 15mg daily. Due to worsening psoriasis will try Otezla (through samples). Studies have shown no significant adverse effects of combining Otezla with TNFi. Patient is going to wait to start Otezla until after his next Simponi aria infusion. Follow up in 2 months when back from [place]. Sooner if needed. Seen with Dr. Martins. Assessment & Plan (12/02/2022 11:32 AM RETAIL SALES MANAGER): Low cdai. Restarted Simponi aria IV 08/24/2020 with improvement of peripheral joint complaints and was felt to be helping his psoriasis however recent URI exacerbated plaque psoriasis so given kenalog IM 11/12/22 with improvement but not complete resolve yet. MTX caused GI upset in the past however could consider retrying this in the future as combination therapy with simponi aria if needed. Continue Simponi aria 2mg/kg IV [id number]. Continue meloxicam 15mg daily. Previously discussed addition of an oral DMARD (MTX vs leflunomide) however patient defers additional medication at this time. If psoriasis would worsen, could consider changing biologics next. Recent labs reviewed with patient. Follow up in 3-4 months. Sooner if needed. Assessment & Plan (11/12/2022 4:44 PM RETAIL SALES MANAGER): Low cdai. 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 MTX caused GI upset in the past however could consider retrying this in the future as combination therapy with simponi aria if needed. Continue Simponi aria 2mg/kg IV [id number]. Continue meloxicam 15mg daily. Previously discussed addition of an oral DMARD (MTX vs leflunomide) however patient defers additional medication at this time. Assessment & Plan (08/19/2022 12:47 PM RETAIL SALES MANAGER): Low cdai. Restarted Simponi aria IV 08/24/2020 with improvement of peripheral joint complaints. MTX caused GI upset in the past however could consider retrying this in the future as combination therapy with simponi aria if needed. Overall, symptoms remain stable. Continue Simponi aria 2mg/kg IV [id number]. Continue meloxicam 15mg daily. Previously discussed addition of an oral DMARD (MTX vs leflunomide) however patient defers additional medication at this time. Routine labs today. Follow up in 3-4 months. Sooner if needed. Assessment & Plan (05/22/2022 2:45 PM CDT): Low cdai. Restarted Simponi aria IV 08/24/2020 with improvement of peripheral joint complaints. MTX caused GI upset in the past however could consider retrying this in the future as combination therapy with simponi aria if needed. Overall, symptoms remain stable. Continue Simponi aria 2mg/kg IV [id number]. Continue meloxicam 15mg daily. Previously discussed addition of an oral DMARD (MTX vs leflunomide) however patient defers additional medication at this time. Routine labs today. Follow up in 3-4 months. Sooner if needed. Seen with Dr. Martins. Assessment & Plan (01/29/2022 11:51 AM CDT): Low cdai. Restarted Simponi aria IV 08/24/2020 with improvement of peripheral joint complaints. MTX caused GI upset in the past however could consider retrying this in the future as combination therapy with simponi aria if needed. Overall, symptoms remain stable. Continue Simponi aria 2mg/kg IV [id number]. Continue meloxicam 15mg daily. Previously discussed addition of an oral DMARD (MTX vs leflunomide) however patient defers additional medication at this time. Routine labs today. Follow up in 3-4 months. Sooner if needed. Assessment & Plan (10/22/2021 11:52 AM RETAIL SALES MANAGER): Moderate cdai. Restarted Simponi aria IV 08/24/2020 with improvement of peripheral joint complaints.. MTX caused GI upset in the past however could consider retrying this in the future as combination therapy with simponi aria if needed. Overall, symptoms remain stable. Continue Simponi aria 2mg/kg IV [id number]. Continue meloxicam 15mg daily. Previously discussed addition of an oral DMARD (MTX vs leflunomide) however patient defers additional medication at this time. Routine labs today. Follow up in 3 months. Sooner if needed. Seen with Dr. Martins. Assessment & Plan (07/29/2021 12:20 PM CDT): Moderate cdai. Restarted Simponi aria IV 08/24/2020 with improvement of peripheral joint complaints.. MTX caused GI upset in the past however could consider retrying this in the future as combination therapy with simponi aria if needed. Overall, symptoms remain stable. Continue Simponi aria 2mg/kg IV [id number]. Continue meloxicam 15mg daily. Discussed addition of an oral DMARD (MTX vs leflunomide) however patient defers additional medication at this time. Routine labs today. Follow up in 3 months. Sooner if needed. Assessment & Plan (04/29/2021 12:05 PM CDT): Low cdai. Improvement of synovitis and tenderness noted on peripheral exam today. Restarted Simponi aria IV 08/24/2020. MTX caused GI upset in the past however could consider retrying this in the future as combination therapy with simponi aria if needed. Overall, symptoms remain stable. Continue Simponi aria 2mg/kg IV [id number]. Continue meloxicam 15mg daily. Routine labs today. Follow up in 3 months. Sooner if needed. Assessment & Plan (01/28/2021 12:07 PM CDT): Low cdai. Improvement of synovitis and tenderness noted on peripheral exam today. Restarted Simponi aria IV 08/24/2020. MTX caused GI upset in the past however could consider retrying this in the future as combination therapy with simponi aria if needed. Continue Simponi aria 2mg/kg IV [id number]. Continue meloxicam 15mg daily. Will request recent labs from cardiology Dr. Talbot. Follow up in 3 months. Sooner if needed. Assessment & Plan (11/16/2020 12:00 PM RETAIL SALES MANAGER): Moderate cdai. Synovitis without tenderness noted on peripheral exam today. Restarted Simponi aria IV 08/24/2020. MTX caused GI upset in the past however could consider retrying this in the future as combination therapy with simponi aria. Continue Simponi aria IV and give this more time to take effect. Will start meloxicam 15mg daily. Discussed side effects of the medication, including but not limited to GI upset, kidney, and ulcers. Advised patient to reduce aspirin to 81mg daily. Routine labs today. Follow up in 3 months. Sooner if needed. Seen with Dr. Martins. Assessment & Plan (08/30/2020 12:18 PM RETAIL SALES MANAGER): US R hand/wrist (08/24/2020): Moderate synovial thickening/effusion with grade 2 power Doppler at the wrist. Moderate 2nd MCP and PIP, marked 3rd MCP and PIP synovial thickening with grade 1 power Doppler of 3rd PIP on examination which will have to be correlated clinically. Serologies revealed a positive MALIK 1:640, cb-cap bc4d (77), and anti-TPO (110). Serologies could indicate an autoimmune thyroid disease however is already treated with levothyroxine for hypothyroidism. Radiographs revealed mild bilateral hip OA, mild lumbar spondylosis, and mild/mod OA in the bilateral hands. Continues to note pain in his hands. Restart Simponi aria IV 08/24/2020. MTX caused GI upset in the past however could consider retrying this in the future as combination therapy with simponi aria. Synovitis without tenderness noted on peripheral exam today. US findings are consistent with prior diagnosis of psoriatic arthritis. Continue simponi aria IV and give this more time to take effect. Will stop diclofenac as he only takes once daily because he cannot tolerate nighttime dose. Will start meloxicam 15mg daily. Discussed side effects of the medication, including but not limited to GI upset, kidney, and ulcers. Follow up in 3 months. Sooner if needed. Seen with Dr. Martins. Assessment & Plan (08/15/2020 2:10 PM RETAIL SALES MANAGER): Patient presents with a prior diagnosis of psoriatic arthritis currently treated with humira which is providing benefit for his psoriasis but not his arthralgias. Previously treated with simponi aria before COVID-19. MTX caused GI upset in the past. Takes diclofenac only once daily due to GI upset. Synovitis without tenderness noted on peripheral exam today. Symptoms and exam appear consistent with prior diagnosis of psoriatic arthritis. Will order appropriate serologies, radiographs, and a right hand/wrist US to further evaluate. Will stop humira due to no benefit of his arthralgias and restart simponi aria. Consider stopping diclofenac and starting meloxicam next visit as he is only able to take diclofenac once daily. Follow up in 2 weeks. Sooner if needed. Seen with Dr. Martins. Immunizations Name Administration Dates Next Due Influenza, Trivalent, IM (MDV) 09/14/2018 Influenza, Trivalent, Preservative Free, Intramu scular 09/08/2012 PPD TEST 01/27/2012 Social History Tobacco Use Types Packs/Day Years Used Date Smoking Tobacco: Never Smokeless Tobacco: Never Tobacco Cessation:Counseling Given: Not Answered AUDIT-C Answer Date Recorded Q1: How often do you have a drink containing alcohol? Never 01/26/2024 Q2: How many drinks containi ng alcohol do you have on a typical day when you are drinking? Patient does not drink Q3: How often do you have si x or more drinks on one occasion? Never 01/26/2024 Sex and Gender Information Value Date Recorded Sex Assigned at Not on file Legal Sex Male 8:28 PM RETAIL SALES MANAGER Gender Identity Not on file Sexual Orientation Not on file Last Filed Vital Signs Vital Sign Reading Time Taken Comments Blood Pressure 154/78 09/14/2024 11:37 AM RETAIL SALES MANAGER Pulse 57 09/14/2024 11:37 AM RETAIL SALES MANAGER Temperature 36.4 ??C (97.6 ??F) 04/27/2024 1:10 PM CD T Respiratory Rate 14 04/27/2024 1:10 PM CDT Oxygen Saturation 99% 09/14/2024 11:37 AM RETAIL SALES MANAGER Inhaled Oxygen Concentration - - Weight 111.6 kg (246 lb) 09/14/2024 11:37 AM RETAIL SALES MANAGER Height 180.3 cm (5' 11 ) 09/14/2024 11:37 AM RETAIL SALES MANAGER Body Mass Index 34.31 09/14/2024 11:37 AM RETAIL SALES MANAGER Plan of Treatment Not on file Goals Goal Patient Goal Type Associated Problems Recent Progress Patient-Stated? Author CCM Chronic Pain Care Plan Chronic Care Management No change(04/27 1:14 PM CDT) No Chaim Marie, RUBA Note: Problem: Chronic Pain Goals: 1. Minimize further functional decline 2. Maximize quality of life 3. 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 from Last 3 Months or Most Recently Relevant to Health Maintenance Results * SCAN - LABS (09/19/2024 9:45 AM RETAIL SALES MANAGER) Michaela HONEYCUTT Final Result * Hepatitis panel, acute (08/15/2020 11:54 AM RETAIL SALES MANAGER) Hep A IgM NON-REACTI VE NON-REACT ERNIE [facility] Comment: For additional information, please refer to [email or web address] (This link is being provided for informational/ educational purposes only.) HepBsAg NON-REACTI VE NON-REACT ERNIE [facility] Hep B core IgM NON-REACTI VE NON-REACT ERNIE [facility] Hep C Ab NON-REACTI VE NON-REACT ERNIE [facility] SIGNAL TO CUT-OFF 0.02 <1.00 [facility] Comment: HCV antibody was non-reactive. There is no laboratory evidence of HCV infection. In most cases, no further action is required. However, if recent HCV exposure is suspected, a test for HCV RNA (test code 07677) is suggested. 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 08/15/2020 11:55 AM RETAIL SALES MANAGER Michaela HONEYCUTT LAB MICROBIOLOGY - NERAL ORDERABLES Final Result [facility] [address] [place] [address] from Last 3 Months or Most Recently Relevant to Health Maintenance Insurance MEDICARE [facility] MEDICARE [facility] MEDICARE [facility] CHOICE PLUS [facility] HMO/PPO Address: [address] [address] [place] [address] MEDICARE [facility] Care Teams Media Liaison Officer Relationship Specialty Start Date End Date Nicholas Magallanes MD [address] [address] PCP - General Family Medicine 08/02/20 Hank Talbot MD [address] [place] [address] [place] [address] Cardiovascular Disease 01/28/21 Arvind Hickey MD [address] [place] [address] Consulting Physician Rheumatology 10/14/23
--- OUTSIDE RECORDS SUMMARY | 2024-11-14 11:37 | XMS_ITS | Clinical Summary ---
Author Organization 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 [...] plana vitrectomy (PPV)/MP left eye (OS) at [facility] -cystoid macular edema (CME) stable/slightly worsened with [...] plana vitrectomy (PPV)/MP left eye (OS) at [facility] -cystoid macular edema (CME) improved [...] cataract extraction (CE)/IOL both eyes (OU) at [facility] -pt reports he also developed a macular pucker left eye (OS) after surgery; then had pars plana vitrectomy (PPV)/MP also at [facility] -he reports vision has been [...] 11/12/2022 Assessment & Plan (09/14/2024 11:34 AM PLANT PULLER): Improved with Otezla but stopped this in [...] joints. Assessment & Plan (11/26/2023 12:10 PM PLANT PULLER): Improved with Otezla but stopped this in 05/2023 due to s/e with only slight recurrence of psoriasis on his back. Could consider Cosentyx IV in the future if necessary for skin and joints. Assessment & Plan (08/27/2023 12:44 PM PLANT PULLER): Improved with Otezla but stopped this in [...] therapies. Assessment & Plan (12/02/2022 11:29 AM PLANT PULLER): Kenalog IM given 11/12/22 with significant improvement. [...] involvement. Assessment & Plan (11/12/2022 4:47 PM PLANT PULLER): Exacerbation involving multiple small plaques all over [...] also told he had macular pucker. Saw [facility] who started ketorolac and prednisolone drops for cystoid macular edema (OS). Has f/u again in 03/2023. Assessment & Plan (12/02/2022 11:29 AM PLANT PULLER): Notes change in his vision s/p cataract removal and was also told he had macular pucker. Recommend he seek 2nd opinion at [facility] due to his continued concerns. Given name of Dr. Mayo. He is going to discuss referral with PCP at his upcoming visit. Assessment & Plan (11/12/2022 4:57 PM PLANT PULLER): Notes change in his vision s/p cataract removal and was also told he had macular pucker. Recommend he seek 2nd opinion at [facility] due to his continued concern. Given name of Dr. Mayo. He is going to discuss referral with PCP. Assessment & Plan (08/19/2022 12:47 PM PLANT PULLER): Notes change in his vision s/p cataract removal and was also told he had macular pucker. Recommend he seek 2nd opinion at [facility] due to his continued concerns and he will further discuss referral with his PCP. 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 2019 Overview (08/17/2020): Hepatitis negative: 08/2020 TB Quant negative: 08/2020 Assessment & Plan (09/14/2024 11:33 AM PLANT PULLER): TB quant negative: 08/2020 Hepatitis negative: 08/2020 Assessment & Plan (06/16/2024 11:05 AM CDT): TB quant negative: 08/2020 Hepatitis negative: 08/2020 Assessment & Plan (03/03/2024 12:28 PM CDT): TB quant negative: 08/2020 Hepatitis negative: 08/2020 Assessment & Plan (11/26/2023 10:04 AM PLANT PULLER): TB quant negative: 08/2020 Hepatitis negative: 08/2020 Assessment & Plan (08/27/2023 12:44 PM PLANT PULLER): TB quant negative: 08/2020 Hepatitis negative: 08/2020 Assessment & Plan (05/26/2023 12:55 PM CDT): TB quant negative: 08/2020 Hepatitis negative: 08/2020 Assessment & Plan (03/03/2023 10:49 AM CDT): TB quant negative: 08/2020 Hepatitis negative: 08/2020 Assessment & Plan (12/02/2022 11:30 AM PLANT PULLER): TB quant negative: 08/2020 Hepatitis negative: 08/2020 Assessment & Plan (11/12/2022 4:45 PM PLANT PULLER): TB quant negative: 08/2020 Hepatitis negative: 08/2020 Assessment & Plan (08/19/2022 12:49 PM PLANT PULLER): TB quant negative: 08/2020 Hepatitis negative: 08/2020 Assessment & Plan (05/22/2022 10:53 AM CDT): TB quant negative: 08/2020 Hepatitis negative: 08/2020 Assessment & Plan (01/29/2022 11:51 AM CDT): TB quant negative: 08/2020 Hepatitis negative: 08/2020 Assessment & Plan (10/22/2021 11:47 AM PLANT PULLER): TB quant negative: 08/2020 Hepatitis negative: 08/2020 Assessment & Plan (07/29/2021 12:17 PM CDT): TB quant negative: 08/2020 Hepatitis negative: 08/2020 Assessment & Plan (04/29/2021 11:32 AM CDT): TB quant negative: 08/2020 Hepatitis negative: 08/2020 Assessment & Plan (01/28/2021 10:57 AM CDT): TB quant negative: 08/2020 Hepatitis negative: 08/2020 Assessment & Plan (11/16/2020 11:12 AM PLANT PULLER): TB quant negative: 08/2020 Hepatitis negative: 08/2020 Assessment & Plan (08/30/2020 12:25 PM PLANT PULLER): TB quant negative: 08/2020 Hepatitis negative: 08/2020 Assessment & Plan (08/15/2020 2:27 PM PLANT PULLER): TB quant negative: 04/2019, repeat today Check [...] LMBB. Assessment & Plan (11/26/2023 11:22 AM PLANT PULLER): Unable to stand for more than 10-15 [...] and will provide referral to PM&R at [facility]. Continue meloxicam 15mg daily as he does notice some benefit with this. Assessment & Plan (08/27/2023 12:48 PM PLANT PULLER): Unable to stand for more than 10-15 [...] PCP. Assessment & Plan (12/02/2022 11:30 AM PLANT PULLER): Unable to stand for more than 10-15 [...] PCP. Assessment & Plan (08/19/2022 12:45 PM PLANT PULLER): Unable to stand for more than 10-15 [...] PT. Assessment & Plan (10/22/2021 12:32 PM PLANT PULLER): Unable to stand for more than 10-15 [...] he splits his time between [place] and [place]. Continue meloxicam 15mg [...] this. Assessment & Plan (11/16/2020 11:12 AM PLANT PULLER): Unable to stand for more than 10-15 [...] time. Assessment & Plan (08/30/2020 12:26 PM PLANT PULLER): Unable to stand for more than 10-15 [...] time. Assessment & Plan (08/15/2020 2:31 PM PLANT PULLER): Unable to stand for more than 10-15 [...] Overview (08/30/2020): Labs (08/15/2020): negative AVISE (08/15/2020): +MALIK 1:640 dense fine speckled, cb-cap bc4d (77), [...] clinically. Assessment & Plan (09/14/2024 11:55 AM PLANT PULLER): Low cdai. Remains on Simponi aria IV [...] joint coverage. Continue Simponi aria 2mg/kg IV [id number]. Will defer labs today as he reports [...] joint coverage. Continue Simponi aria 2mg/kg IV [id number]. Will defer labs today as he is [...] joint coverage. Continue Simponi aria 2mg/kg IV [id number]. Routine labs today. Follow up in 3 months. Sooner if needed. Assessment & Plan (11/26/2023 12:12 PM PLANT PULLER): Low cdai. Restarted Simponi aria IV 08/24/2020 [...] joint coverage. Continue Simponi aria 2mg/kg IV [id number]. Follow up in 3 months. Sooner if needed. Seen with Dr. Hickey. Assessment & Plan (08/27/2023 12:51 PM PLANT PULLER): Low-moderate cdai. Restarted Simponi aria IV 08/24/2020 with improvement of peripheral joint complaints. MTX caused GI upset in the past however could consider retrying this in the future as combination therapy with simponi aria if needed. Otezla caused brain fog/mood changes. Continue Simponi aria 2mg/kg IV [id number]. Follow up in 3 months. Sooner if [...] causing tinnitus. Continue Simponi aria 2mg/kg IV [id number]. Follow up in 3 months. Sooner if [...] joint complaints. Continue Simponi aria 2mg/kg IV [id number]. Continue meloxicam 15mg daily. Due to worsening psoriasis will try Otezla (through samples). Studies have shown no significant adverse effects of combining Otezla with TNFi. Patient is going to wait to start Otezla until after his next Simponi aria infusion. Follow up in 2 months when back from [place]. Sooner if needed. Seen with Dr. Martins. Assessment & Plan (12/02/2022 11:32 AM PLANT PULLER): Low cdai. Restarted Simponi aria IV 08/24/2020 [...] if needed. Continue Simponi aria 2mg/kg IV [id number]. Continue meloxicam 15mg daily. Previously discussed addition of an oral DMARD (MTX vs leflunomide) however patient defers additional medication at this time. If psoriasis would worsen, could consider changing biologics next. Recent labs reviewed with patient. Follow up in 3-4 months. Sooner if needed. Assessment & Plan (11/12/2022 4:44 PM PLANT PULLER): Low cdai. 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 MTX caused GI upset in the past however could consider retrying this in the future as combination therapy with simponi aria if needed. Continue Simponi aria 2mg/kg IV [id number]. Continue meloxicam 15mg daily. Previously discussed addition of an oral DMARD (MTX vs leflunomide) however patient defers additional medication at this time. Assessment & Plan (08/19/2022 12:47 PM PLANT PULLER): Low cdai. Restarted Simponi aria IV 08/24/2020 with improvement of peripheral joint complaints. MTX caused GI upset in the past however could consider retrying this in the future as combination therapy with simponi aria if needed. Overall, symptoms remain stable. Continue Simponi aria 2mg/kg IV [id number]. Continue meloxicam 15mg daily. Previously discussed addition [...] remain stable. Continue Simponi aria 2mg/kg IV [id number]. Continue meloxicam 15mg daily. Previously discussed addition [...] remain stable. Continue Simponi aria 2mg/kg IV [id number]. Continue meloxicam 15mg daily. Previously discussed addition of an oral DMARD (MTX vs leflunomide) however patient defers additional medication at this time. Routine labs today. Follow up in 3-4 months. Sooner if needed. Assessment & Plan (10/22/2021 11:52 AM PLANT PULLER): Moderate cdai. Restarted Simponi aria IV 08/24/2020 with improvement of peripheral joint complaints.. MTX caused GI upset in the past however could consider retrying this in the future as combination therapy with simponi aria if needed. Overall, symptoms remain stable. Continue Simponi aria 2mg/kg IV [id number]. Continue meloxicam 15mg daily. Previously discussed addition [...] remain stable. Continue Simponi aria 2mg/kg IV r2sdmif. Continue meloxicam 15mg daily. Discussed addition of [...] remain stable. Continue Simponi aria 2mg/kg IV e5pssuz. Continue meloxicam 15mg daily. Routine labs today. [...] if needed. Continue Simponi aria 2mg/kg IV [id number]. Continue meloxicam 15mg daily. Will request recent labs from cardiology Dr. Talbot. Follow up in 3 months. Sooner if needed. Assessment & Plan (11/16/2020 12:00 PM PLANT PULLER): Moderate cdai. Synovitis without tenderness noted on [...] Martins. Assessment & Plan (08/30/2020 12:18 PM PLANT PULLER): US R hand/wrist (08/24/2020): Moderate synovial thickening/effusion [...] Martins. Assessment & Plan (08/15/2020 2:10 PM PLANT PULLER): Patient presents with a prior diagnosis of [...] Sooner if needed. Seen with Dr. Martins. Encounters Date Type Department Care Team Description 09/19/2024 Orders Only [facility] [address] [place] [phone] Michaela Weinberg PA 09/14/2024 11:00 AM PLANT PULLER Office Visit [facility] [address] [place] [phone] Michaela Weinberg PA Psoriasis with arthropathy (HCC) (Primary Dx); Psoriasis; Chronic midline low back pain, unspecified whether sciatica present; halfway current use of therapeutic drug 09/14/2024 Telephone [facility] [address] [place] [phone] Michaela Weinberg PA Labs Requested from PCP from Last 3 Months Immunizations Name Administration Dates Next Due Influenza, Trivalent, IM (MDV) 09/14/2018 Influenza, Trivalent, Preservative Free, Intramu scular 09/08/2012 PPD TEST 01/27/2012 Surgical History Surgery Date Site/Laterality Comments CATARACT EXTRACTION W/ INTRA OCULAR LENS IMPLANT 01/10/2022 - 02/08/2022 Bilateral EYE SURGERY 07/13/2023 Right Yag Cap OD WISDOM TOOTH EXTRACTION 10/12/1978 - 10/11/1979 Medical History Medical History Date Comments 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 High risk medications (not anticoagulants) long-term use - (Added by TW Conv) Arthritis Family History Medical History Relation Name Comments Heart disease Father Hypertension Father Stroke Father Cancer Mother Hypertension Mother Relation Name Status Comments Father Mother Social History Tobacco Use Types Packs/Day Years [...] on file Legal Sex Male 8:28 PM PLANT PULLER Gender Identity Not on file Sexual Orientation Not on file Obstetrics History Last Filed Vital Signs Vital Sign Reading Time Taken Comments Blood Pressure 154/78 09/14/2024 11:37 AM PLANT PULLER Pulse 57 09/14/2024 11:37 AM PLANT PULLER Temperature 36.4 ??C (97.6 ??F) 04/27/2024 1:10 PM CD T Respiratory Rate 14 04/27/2024 1:10 PM CDT Oxygen Saturation 99% 09/14/2024 11:37 AM PLANT PULLER Inhaled Oxygen Concentration - - Weight 111.6 kg (246 lb) 09/14/2024 11:37 AM PLANT PULLER Height 180.3 cm (5' 11 ) 09/14/2024 11:37 AM PLANT PULLER Body Mass Index 34.31 09/14/2024 11:37 AM PLANT PULLER Plan of Treatment Health Maintenance Due Date Last Done Comments Colon Cancer Screening-Colonoscopy 1950 Depression Screening 1950 Fall Risk Assessment 1950 DTaP/Tdap/Td Vaccine (1 - Tdap) 1963 Hepatitis B Screening 1970 Zoster Vaccine (1 of 2) 2002 Pneumococcal vaccine 65+ (1 of 1 - PCV) 2017 Well Visit 65+ 2017 Influenza Vaccine (#1) 2024 09/14/2018, 2011 Hepatitis C Screening Completed 08/15/2020 Goals Goal Patient Goal Type Associated Problems Recent Progress Patient-Stated? Author CCM Chronic Pain Care Plan Chronic Care Management No change(04/27 1:14 PM CDT) Chaim Glez, RUBA Note: Problem: Chronic Pain Goals: 1. Minimize further functional decline 2. Maximize quality of life 3. 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 For additional information please refer to http://[employer].Pryv/faq/XJP82w6 (This link is being provided for informational/ educational purposes only.) Blood specimen (specimen) 08/15/2020 11:54 AM PLANT PULLER 08/15/2020 11:55 AM PLANT PULLER Michaela HONEYCUTT LAB MICROBIOLOGY - NERAL ORDERABLES Final Result [facility] [address] [place] [phone] from Last 3 Months or Most Recently Relevant to Health Maintenance Insurance MEDICARE [facility] MEDICARE [facility] MEDICARE [facility] CHOICE PLUS MEDICARE AARP Care Teams Procedure Writer Relationship Specialty Start Date End Date Nicholas Magallanes MD [address] [address] PCP - General Family Medicine 08/02/20 Hank Talbot MD [address] [place] [address] [address] [place] [id number] Cardiovascular Disease 01/28/21 Arvind Hickey MD [address] [place] [address] Consulting Physician Rheumatology 10/14/23
== END 2024-11-14 11:46 | disposition home or self-care (01) ==
PROVIDERS: Emergency Provider Nurse Practitioner Family; PCP Family Medicine
DX: J01.80 Other acute sinusitis (principal); B96.89 Other specified bacterial agents as the cause of diseases classified elsewhere; E78.2 Mixed hyperlipidemia; Z20.822 Contact with and (suspected) exposure to COVID-19; E66.9 Obesity, unspecified; Z68.34 Body mass index [BMI] 34.0-34.9, adult
CPT/HCPCS: 87426; 87804; 99213; G0463

== ENCOUNTER 2024-11-16 15:09 | Emergency (ER) | payer MEDICARE, SELFPAY ==
--- NOTE | ~2024-11-16 | XR_ITS ---
CHEST RADIOGRAPH, PA AND LATERAL CLINICAL HISTORY: cough, wheezing . COMPARISON: 10/15/2020 TECHNIQUE: PA and lateral views of the chest. FINDINGS The cardiomediastinal silhouette is unremarkable. The lungs are clear. Visualized osseous structures and soft tissues are unremarkable. IMPRESSION: No focal infiltrate or effusion. Reviewed, dictated and finalized at location A. ER GRINDER
[2024-11-16 15:13] VITALS: BP 148/64; PULSE 79; RESP 20; TEMP 37.9; O2SAT 96
--- OUTSIDE RECORDS SUMMARY | 2024-11-16 15:43 | XMS_ITS | Clinical Summary ---
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 [facility] and failed bilateral L3-4 and L5-S1 [...] from the spine. [facility] was [facility] and failed bilateral L3-4 and L5-S1 [...] plana vitrectomy (PPV)/MP left eye (OS) at [facility] -cystoid macular edema (CME) improved [...] cataract extraction (CE)/IOL both eyes (OU) at [facility] -pt reports he also developed a macular pucker left eye (OS) after surgery; then had pars plana vitrectomy (PPV)/MP also at [facility] -he reports vision has been [...] 11/12/2022 Assessment & Plan (09/14/2024 11:34 AM CAPSULE MAKER): Improved with Otezla but stopped this in [...] joints. Assessment & Plan (11/26/2023 12:10 PM CAPSULE MAKER): Improved with Otezla but stopped this in 05/2023 due to s/e with only slight recurrence of psoriasis on his back. Could consider Cosentyx IV in the future if necessary for skin and joints. Assessment & Plan (08/27/2023 12:44 PM CAPSULE MAKER): Improved with Otezla but stopped this in [...] therapies. Assessment & Plan (12/02/2022 11:29 AM CAPSULE MAKER): Kenalog IM given 11/12/22 with significant improvement. [...] involvement. Assessment & Plan (11/12/2022 4:47 PM CAPSULE MAKER): Exacerbation involving multiple small plaques all over [...] also told he had macular pucker. Saw [facility] Optometry who started ketorolac and prednisolone drops for cystoid macular edema (OS). Has f/u again in 03/2023. Assessment & Plan (12/02/2022 11:29 AM CAPSULE MAKER): Notes change in his vision s/p cataract removal and was also told he had macular pucker. Recommend he seek 2nd opinion at [facility] due to his continued concerns. Given name of Dr. Mayo. He is going to discuss referral with PCP at his upcoming visit. Assessment & Plan (11/12/2022 4:57 PM CAPSULE MAKER): Notes change in his vision s/p cataract removal and was also told he had macular pucker. Recommend he seek 2nd opinion at [facility] due to his continued concern. Given name of Dr. Mayo. He is going to discuss referral with PCP. Assessment & Plan (08/19/2022 12:47 PM CAPSULE MAKER): Notes change in his vision s/p cataract removal and was also told he had macular pucker. Recommend he seek 2nd opinion at [facility] due to his continued concerns and he will further discuss referral with his PCP. 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 2019 Overview (08/17/2020): Hepatitis negative: 08/2020 TB Quant negative: 08/2020 Assessment & Plan (09/14/2024 11:33 AM CAPSULE MAKER): TB quant negative: 08/2020 Hepatitis negative: 08/2020 Assessment & Plan (06/16/2024 11:05 AM CDT): TB quant negative: 08/2020 Hepatitis negative: 08/2020 Assessment & Plan (03/03/2024 12:28 PM CDT): TB quant negative: 08/2020 Hepatitis negative: 08/2020 Assessment & Plan (11/26/2023 10:04 AM CAPSULE MAKER): TB quant negative: 08/2020 Hepatitis negative: 08/2020 Assessment & Plan (08/27/2023 12:44 PM CAPSULE MAKER): TB quant negative: 08/2020 Hepatitis negative: 08/2020 Assessment & Plan (05/26/2023 12:55 PM CDT): TB quant negative: 08/2020 Hepatitis negative: 08/2020 Assessment & Plan (03/03/2023 10:49 AM CDT): TB quant negative: 08/2020 Hepatitis negative: 08/2020 Assessment & Plan (12/02/2022 11:30 AM CAPSULE MAKER): TB quant negative: 08/2020 Hepatitis negative: 08/2020 Assessment & Plan (11/12/2022 4:45 PM CAPSULE MAKER): TB quant negative: 08/2020 Hepatitis negative: 08/2020 Assessment & Plan (08/19/2022 12:49 PM CAPSULE MAKER): TB quant negative: 08/2020 Hepatitis negative: 08/2020 Assessment & Plan (05/22/2022 10:53 AM CDT): TB quant negative: 08/2020 Hepatitis negative: 08/2020 Assessment & Plan (01/29/2022 11:51 AM CDT): TB quant negative: 08/2020 Hepatitis negative: 08/2020 Assessment & Plan (10/22/2021 11:47 AM CAPSULE MAKER): TB quant negative: 08/2020 Hepatitis negative: 08/2020 Assessment & Plan (07/29/2021 12:17 PM CDT): TB quant negative: 08/2020 Hepatitis negative: 08/2020 Assessment & Plan (04/29/2021 11:32 AM CDT): TB quant negative: 08/2020 Hepatitis negative: 08/2020 Assessment & Plan (01/28/2021 10:57 AM CDT): TB quant negative: 08/2020 Hepatitis negative: 08/2020 Assessment & Plan (11/16/2020 11:12 AM CAPSULE MAKER): TB quant negative: 08/2020 Hepatitis negative: 08/2020 Assessment & Plan (08/30/2020 12:25 PM CAPSULE MAKER): TB quant negative: 08/2020 Hepatitis negative: 08/2020 Assessment & Plan (08/15/2020 2:27 PM CAPSULE MAKER): TB quant negative: 04/2019, repeat today Check [...] LMBB. Assessment & Plan (11/26/2023 11:22 AM CAPSULE MAKER): Unable to stand for more than 10-15 [...] and will provide referral to PM&R at [facility]. Continue meloxicam 15mg daily as he does notice some benefit with this. Assessment & Plan (08/27/2023 12:48 PM CAPSULE MAKER): Unable to stand for more than 10-15 [...] PCP. Assessment & Plan (12/02/2022 11:30 AM CAPSULE MAKER): Unable to stand for more than 10-15 [...] PCP. Assessment & Plan (08/19/2022 12:45 PM CAPSULE MAKER): Unable to stand for more than 10-15 [...] PT. Assessment & Plan (10/22/2021 12:32 PM CAPSULE MAKER): Unable to stand for more than 10-15 [...] he [place] and [place]. Continue meloxicam 15mg [...] this. Assessment & Plan (11/16/2020 11:12 AM CAPSULE MAKER): Unable to stand for more than 10-15 [...] time. Assessment & Plan (08/30/2020 12:26 PM CAPSULE MAKER): Unable to stand for more than 10-15 [...] time. Assessment & Plan (08/15/2020 2:31 PM CAPSULE MAKER): Unable to stand for more than 10-15 [...] clinically. Assessment & Plan (09/14/2024 11:55 AM CAPSULE MAKER): Low cdai. Remains on Simponi aria IV [...] joint coverage. Continue Simponi aria 2mg/kg IV [id number]. Will defer labs today as he reports [...] joint coverage. Continue Simponi aria 2mg/kg IV [id number]. Will defer labs today as he is [...] joint coverage. Continue Simponi aria 2mg/kg IV [id number]. Routine labs today. Follow up in 3 months. Sooner if needed. Assessment & Plan (11/26/2023 12:12 PM CAPSULE MAKER): Low cdai. Restarted Simponi aria IV 08/24/2020 [...] joint coverage. Continue Simponi aria 2mg/kg IV [id number]. Follow up in 3 months. Sooner if needed. Seen with Dr. Hickey. Assessment & Plan (08/27/2023 12:51 PM CAPSULE MAKER): Low-moderate cdai. Restarted Simponi aria IV 08/24/2020 with improvement of peripheral joint complaints. MTX caused GI upset in the past however could consider retrying this in the future as combination therapy with simponi aria if needed. Otezla caused brain fog/mood changes. Continue Simponi aria 2mg/kg IV [id number]. Follow up in 3 months. Sooner if [...] causing tinnitus. Continue Simponi aria 2mg/kg IV [id number]. Follow up in 3 months. Sooner if [...] joint complaints. Continue Simponi aria 2mg/kg IV [id number]. Continue meloxicam 15mg daily. Due to worsening psoriasis will try Otezla (through samples). Studies have shown no significant adverse effects of combining Otezla with TNFi. Patient is going to wait to start Otezla until after his next Simponi aria infusion. Follow up in 2 months when back from [place]. Sooner if needed. Seen with Dr. Martins. Assessment & Plan (12/02/2022 11:32 AM CAPSULE MAKER): Low cdai. Restarted Simponi aria IV 08/24/2020 [...] if needed. Continue Simponi aria 2mg/kg IV [id number]. Continue meloxicam 15mg daily. Previously discussed addition of an oral DMARD (MTX vs leflunomide) however patient defers additional medication at this time. If psoriasis would worsen, could consider changing biologics next. Recent labs reviewed with patient. Follow up in 3-4 months. Sooner if needed. Assessment & Plan (11/12/2022 4:44 PM CAPSULE MAKER): Low cdai. 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 MTX caused GI upset in the past however could consider retrying this in the future as combination therapy with simponi aria if needed. Continue Simponi aria 2mg/kg IV [id number]. Continue meloxicam 15mg daily. Previously discussed addition of an oral DMARD (MTX vs leflunomide) however patient defers additional medication at this time. Assessment & Plan (08/19/2022 12:47 PM CAPSULE MAKER): Low cdai. Restarted Simponi aria IV 08/24/2020 with improvement of peripheral joint complaints. MTX caused GI upset in the past however could consider retrying this in the future as combination therapy with simponi aria if needed. Overall, symptoms remain stable. Continue Simponi aria 2mg/kg IV [id number]. Continue meloxicam 15mg daily. Previously discussed addition [...] remain stable. Continue Simponi aria 2mg/kg IV [id number]. Continue meloxicam 15mg daily. Previously discussed addition [...] remain stable. Continue Simponi aria 2mg/kg IV [id number]. Continue meloxicam 15mg daily. Previously discussed addition of an oral DMARD (MTX vs leflunomide) however patient defers additional medication at this time. Routine labs today. Follow up in 3-4 months. Sooner if needed. Assessment & Plan (10/22/2021 11:52 AM CAPSULE MAKER): Moderate cdai. Restarted Simponi aria IV 08/24/2020 with improvement of peripheral joint complaints.. MTX caused GI upset in the past however could consider retrying this in the future as combination therapy with simponi aria if needed. Overall, symptoms remain stable. Continue Simponi aria 2mg/kg IV [id number]. Continue meloxicam 15mg daily. Previously discussed addition [...] remain stable. Continue Simponi aria 2mg/kg IV [id number]. Continue meloxicam 15mg daily. Discussed addition of [...] remain stable. Continue Simponi aria 2mg/kg IV [id number]. Continue meloxicam 15mg daily. Routine labs today. [...] if needed. Continue Simponi aria 2mg/kg IV [id number]. Continue meloxicam 15mg daily. Will request recent labs from cardiology Dr. Talbot. Follow up in 3 months. Sooner if needed. Assessment & Plan (11/16/2020 12:00 PM CAPSULE MAKER): Moderate cdai. Synovitis without tenderness noted on [...] Martins. Assessment & Plan (08/30/2020 12:18 PM CAPSULE MAKER): US R hand/wrist (08/24/2020): Moderate synovial thickening/effusion [...] Martins. Assessment & Plan (08/15/2020 2:10 PM CAPSULE MAKER): Patient presents with a prior diagnosis of [...] Department Care Team Description 09/19/2024 Orders Only [facility] [address] [place] [phone] Michaela Weinberg PA 09/14/2024 11:00 AM CAPSULE MAKER Office Visit [facility] [address] [place] [phone] Michaela Weinberg PA Psoriasis with arthropathy (HCC) (Primary Dx); Psoriasis; Chronic midline low back pain, unspecified whether sciatica present; shelter current use of therapeutic drug 09/14/2024 Telephone [facility] [address] [place] [phone] Michaela Weinberg PA Labs Requested from PCP [...] Medical History Medical History Date Comments 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 High risk medications (not [...] on file Legal Sex Male 8:28 PM CAPSULE MAKER Gender Identity Not on file Sexual Orientation Not on file Obstetrics History Last Filed Vital Signs Vital Sign Reading Time Taken Comments Blood Pressure 154/78 09/14/2024 11:37 AM CAPSULE MAKER Pulse 57 09/14/2024 11:37 AM CAPSULE MAKER Temperature 36.4 C (97.6 F) 04/27/2024 1:10 PM CDT Respiratory Rate 14 04/27/2024 1:10 PM CDT Oxygen Saturation 99% 09/14/2024 11:37 AM CAPSULE MAKER Inhaled Oxygen Concentration - - Weight 111.6 kg (246 lb) 09/14/2024 11:37 AM CAPSULE MAKER Height 180.3 cm (5' 11 ) 09/14/2024 11:37 AM CAPSULE MAKER Body Mass Index 34.31 09/14/2024 11:37 AM CAPSULE MAKER Plan of Treatment Health Maintenance Due Date [...] Comments SCAN - LABS 09/19/2024 9:45 AM CAPSULE MAKER HEPATITIS PANEL, ACUTE Routine 08/15/2020 11:54 AM CAPSULE MAKER Psoriasis with arthropathy (CMS/HCC) Fatigue, unspecified type Immunocompromised (CMS/HCC) 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 For additional information please refer to http://[employer]/faq/GIS99z3 (This link is being provided for informational/ educational purposes only.) Blood specimen (specimen) 08/15/2020 11:54 AM CAPSULE MAKER 08/15/2020 11:55 AM CAPSULE MAKER Michaela HONEYCUTT LAB MICROBIOLOGY - GE NERAL ORDERABLES Final Result POORNIMA [facility] [id number] [address] [place] [phone] from Last 3 Months or Most Recently Relevant to Health Maintenance Insurance MEDICARE [facility] MEDICARE [facility] MEDICARE [facility] Address: [address] [address] [place] [address] [facility] CHO[employer] PLUS MEDICARE [employer] Care Teams Tong Hooker Relationship Specialty Start Date End Date Nicholas Magallanes MD [address] [address] PCP - General Family Medicine 08/02/20 Hank Talbot MD [address] [place] [address] DR YI [address] [place] [phone] Cardiovascular Disease 01/28/21 Arvind Hickey MD [address] [place] [address] Consulting Physician Rheumatology 10/14/23
--- OUTSIDE RECORDS SUMMARY | 2024-11-16 15:43 | XMS_ITS | Referral Summary ---
Author Organization [facility] [address] [facility] Address [address] [place] [id number] Care Team Providers Care Cna Instructor Name Role Phone Nicholas Magallanes MD Primary Care Provider [phone] Hank Talbot MD Unavailable [phone] Arvind Hickey MD Unavailable [phone] Encounters Date Type Department Care Team Description 09/19/2024 Orders Only [facility] [address] [place] [phone] Michaela Weinberg PA 09/14/2024 Telephone [facility] [address] [place] [phone] Michaela Weinberg PA Labs Requested from PCP 09/14/2024 11:00 AM HEAD PAPER TESTER Office Visit [facility] [address] [place] [phone] Michaela Weinberg PA Psoriasis with arthropathy (HCC) (Primary Dx); Psoriasis; Chronic midline low back pain, unspecified whether sciatica present; asphalt smoother current use of therapeutic drug from Last 3 Months Allergies Active Allergy Reactions Criticality Noted Date Comments Penicillins Rash Medium Sulfa (Sulfonamide Antibiotics) Hives Medium 04/12 Medications levothyroxine (SYNTHROID) 100 mcg tablet Take 1 tablet (100 mcg total) by mouth diamond grader before breakfast Active lisinopriL (PRINIVIL,ZESTR IL) 40 mg tablet Take 1 tablet (40 mg total) by mouth daily Active hydroCHLOROthia zide (MICROZIDE) 12.5 mg capsule Take 1 capsule (12.5 mg total) by mouth daily Active multivit-minera [id number] tablet Take by mouth Active cholecalciferol (VITAMIN D-3) 20700 unit tablet Take 1 tablet (50,000 Units [...] 03/03/2024 Assessment & Plan (09/14/2024 11:57 AM HEAD PAPER TESTER): Unable to stand for more than 10-15 [...] from the spine. [facility] and failed bilateral L3-4 and [...] plana vitrectomy (PPV)/MP left eye (OS) at [facility] -cystoid macular edema (CME) stable/slightly [...] plana vitrectomy (PPV)/MP left eye (OS) at [facility] -cystoid macular edema (CME) improved [...] cataract extraction (CE)/IOL both eyes (OU) at [facility] -pt reports he also developed a macular pucker left eye (OS) after surgery; then had pars plana vitrectomy (PPV)/MP also at [facility] -he reports vision has been [...] 11/12/2022 Assessment & Plan (09/14/2024 11:34 AM HEAD PAPER TESTER): Improved with Otezla but stopped this in [...] joints. Assessment & Plan (11/26/2023 12:10 PM HEAD PAPER TESTER): Improved with Otezla but stopped this in 05/2023 due to s/e with only slight recurrence of psoriasis on his back. Could consider Cosentyx IV in the future if necessary for skin and joints. Assessment & Plan (08/27/2023 12:44 PM HEAD PAPER TESTER): Improved with Otezla but stopped this in [...] therapies. Assessment & Plan (12/02/2022 11:29 AM HEAD PAPER TESTER): Kenalog IM given 11/12/22 with significant improvement. [...] involvement. Assessment & Plan (11/12/2022 4:47 PM HEAD PAPER TESTER): Exacerbation involving multiple small plaques all over [...] also told he had macular pucker. Saw [facility] Optometry who started ketorolac and prednisolone drops for cystoid macular edema (OS). Has f/u again in 03/2023. Assessment & Plan (12/02/2022 11:29 AM HEAD PAPER TESTER): Notes change in his vision s/p cataract removal and was also told he had macular pucker. Recommend he seek 2nd opinion at [facility] due to his continued concerns. Given name of Dr. Mayo. He is going to discuss referral with PCP at his upcoming visit. Assessment & Plan (11/12/2022 4:57 PM HEAD PAPER TESTER): Notes change in his vision s/p cataract removal and was also told he had macular pucker. Recommend he seek 2nd opinion at [facility] due to his continued concern. Given name of Dr. Mayo. He is going to discuss referral with PCP. Assessment & Plan (08/19/2022 12:47 PM HEAD PAPER TESTER): Notes change in his vision s/p cataract removal and was also told he had macular pucker. Recommend he seek 2nd opinion at [facility] due to his continued concerns and he will further discuss referral with his PCP. 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) 05/29/2021 [facility] current use of therapeutic drug 2019 Overview (08/17/2020): Hepatitis negative: 08/2020 TB Quant negative: 08/2020 Assessment & Plan (09/14/2024 11:33 AM HEAD PAPER TESTER): TB quant negative: 08/2020 Hepatitis negative: 08/2020 Assessment & Plan (06/16/2024 11:05 AM CDT): TB quant negative: 08/2020 Hepatitis negative: 08/2020 Assessment & Plan (03/03/2024 12:28 PM CDT): TB quant negative: 08/2020 Hepatitis negative: 08/2020 Assessment & Plan (11/26/2023 10:04 AM HEAD PAPER TESTER): TB quant negative: 08/2020 Hepatitis negative: 08/2020 Assessment & Plan (08/27/2023 12:44 PM HEAD PAPER TESTER): TB quant negative: 08/2020 Hepatitis negative: 08/2020 Assessment & Plan (05/26/2023 12:55 PM CDT): TB quant negative: 08/2020 Hepatitis negative: 08/2020 Assessment & Plan (03/03/2023 10:49 AM CDT): TB quant negative: 08/2020 Hepatitis negative: 08/2020 Assessment & Plan (12/02/2022 11:30 AM HEAD PAPER TESTER): TB quant negative: 08/2020 Hepatitis negative: 08/2020 Assessment & Plan (11/12/2022 4:45 PM HEAD PAPER TESTER): TB quant negative: 08/2020 Hepatitis negative: 08/2020 Assessment & Plan (08/19/2022 12:49 PM HEAD PAPER TESTER): TB quant negative: 08/2020 Hepatitis negative: 08/2020 Assessment & Plan (05/22/2022 10:53 AM CDT): TB quant negative: 08/2020 Hepatitis negative: 08/2020 Assessment & Plan (01/29/2022 11:51 AM CDT): TB quant negative: 08/2020 Hepatitis negative: 08/2020 Assessment & Plan (10/22/2021 11:47 AM HEAD PAPER TESTER): TB quant negative: 08/2020 Hepatitis negative: 08/2020 Assessment & Plan (07/29/2021 12:17 PM CDT): TB quant negative: 08/2020 Hepatitis negative: 08/2020 Assessment & Plan (04/29/2021 11:32 AM CDT): TB quant negative: 08/2020 Hepatitis negative: 08/2020 Assessment & Plan (01/28/2021 10:57 AM CDT): TB quant negative: 08/2020 Hepatitis negative: 08/2020 Assessment & Plan (11/16/2020 11:12 AM HEAD PAPER TESTER): TB quant negative: 08/2020 Hepatitis negative: 08/2020 Assessment & Plan (08/30/2020 12:25 PM HEAD PAPER TESTER): TB quant negative: 08/2020 Hepatitis negative: 08/2020 Assessment & Plan (08/15/2020 2:27 PM HEAD PAPER TESTER): TB quant negative: 04/2019, repeat today Check [...] LMBB. Assessment & Plan (11/26/2023 11:22 AM HEAD PAPER TESTER): Unable to stand for more than 10-15 [...] and will provide referral to PM&R at [facility]. Continue meloxicam 15mg daily as he does notice some benefit with this. Assessment & Plan (08/27/2023 12:48 PM HEAD PAPER TESTER): Unable to stand for more than 10-15 [...] PCP. Assessment & Plan (12/02/2022 11:30 AM HEAD PAPER TESTER): Unable to stand for more than 10-15 [...] PCP. Assessment & Plan (08/19/2022 12:45 PM HEAD PAPER TESTER): Unable to stand for more than 10-15 [...] PT. Assessment & Plan (10/22/2021 12:32 PM HEAD PAPER TESTER): Unable to stand for more than 10-15 [...] he [place]. Continue meloxicam 15mg [...] this. Assessment & Plan (11/16/2020 11:12 AM HEAD PAPER TESTER): Unable to stand for more than 10-15 [...] time. Assessment & Plan (08/30/2020 12:26 PM HEAD PAPER TESTER): Unable to stand for more than 10-15 [...] time. Assessment & Plan (08/15/2020 2:31 PM HEAD PAPER TESTER): Unable to stand for more than 10-15 [...] clinically. Assessment & Plan (09/14/2024 11:55 AM HEAD PAPER TESTER): Low cdai. Remains on Simponi aria IV [...] joint coverage. Continue Simponi aria 2mg/kg IV [id number]. Will defer labs today as he reports [...] joint coverage. Continue Simponi aria 2mg/kg IV [id number]. Will defer labs today as he is [...] joint coverage. Continue Simponi aria 2mg/kg IV [id number]. Routine labs today. Follow up in 3 months. Sooner if needed. Assessment & Plan (11/26/2023 12:12 PM HEAD PAPER TESTER): Low cdai. Restarted Simponi aria IV 08/24/2020 [...] joint coverage. Continue Simponi aria 2mg/kg IV [id number]. Follow up in 3 months. Sooner if needed. Seen with Dr. Hickey. Assessment & Plan (08/27/2023 12:51 PM HEAD PAPER TESTER): Low-moderate cdai. Restarted Simponi aria IV 08/24/2020 with improvement of peripheral joint complaints. MTX caused GI upset in the past however could consider retrying this in the future as combination therapy with simponi aria if needed. Otezla caused brain fog/mood changes. Continue Simponi aria 2mg/kg IV [id number]. Follow up in 3 months. Sooner if [...] causing tinnitus. Continue Simponi aria 2mg/kg IV [id number]. Follow up in 3 months. Sooner if [...] joint complaints. Continue Simponi aria 2mg/kg IV [id number]. Continue meloxicam 15mg daily. Due to worsening psoriasis will try Otezla (through samples). Studies have shown no significant adverse effects of combining Otezla with TNFi. Patient is going to wait to start Otezla until after his next Simponi aria infusion. Follow up in 2 months when back from [place]. Sooner if needed. Seen with Dr. Martins. Assessment & Plan (12/02/2022 11:32 AM HEAD PAPER TESTER): Low cdai. Restarted Simponi aria IV 08/24/2020 [...] if needed. Continue Simponi aria 2mg/kg IV [id number]. Continue meloxicam 15mg daily. Previously discussed addition of an oral DMARD (MTX vs leflunomide) however patient defers additional medication at this time. If psoriasis would worsen, could consider changing biologics next. Recent labs reviewed with patient. Follow up in 3-4 months. Sooner if needed. Assessment & Plan (11/12/2022 4:44 PM HEAD PAPER TESTER): Low cdai. 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 MTX caused GI upset in the past however could consider retrying this in the future as combination therapy with simponi aria if needed. Continue Simponi aria 2mg/kg IV [id number]. Continue meloxicam 15mg daily. Previously discussed addition of an oral DMARD (MTX vs leflunomide) however patient defers additional medication at this time. Assessment & Plan (08/19/2022 12:47 PM HEAD PAPER TESTER): Low cdai. Restarted Simponi aria IV 08/24/2020 with improvement of peripheral joint complaints. MTX caused GI upset in the past however could consider retrying this in the future as combination therapy with simponi aria if needed. Overall, symptoms remain stable. Continue Simponi aria 2mg/kg IV [id number]. Continue meloxicam 15mg daily. Previously discussed addition [...] remain stable. Continue Simponi aria 2mg/kg IV [id number]. Continue meloxicam 15mg daily. Previously discussed addition [...] remain stable. Continue Simponi aria 2mg/kg IV [id number]. Continue meloxicam 15mg daily. Previously discussed addition of an oral DMARD (MTX vs leflunomide) however patient defers additional medication at this time. Routine labs today. Follow up in 3-4 months. Sooner if needed. Assessment & Plan (10/22/2021 11:52 AM HEAD PAPER TESTER): Moderate cdai. Restarted Simponi aria IV 08/24/2020 with improvement of peripheral joint complaints.. MTX caused GI upset in the past however could consider retrying this in the future as combination therapy with simponi aria if needed. Overall, symptoms remain stable. Continue Simponi aria 2mg/kg IV [id number]. Continue meloxicam 15mg daily. Previously discussed addition [...] remain stable. Continue Simponi aria 2mg/kg IV [id number]. Continue meloxicam 15mg daily. Discussed addition of [...] remain stable. Continue Simponi aria 2mg/kg IV [id number]. Continue meloxicam 15mg daily. Routine labs today. [...] if needed. Continue Simponi aria 2mg/kg IV [id number]. Continue meloxicam 15mg daily. Will request recent labs from cardiology Dr. Talbot. Follow up in 3 months. Sooner if needed. Assessment & Plan (11/16/2020 12:00 PM HEAD PAPER TESTER): Moderate cdai. Synovitis without tenderness noted on [...] Martins. Assessment & Plan (08/30/2020 12:18 PM HEAD PAPER TESTER): US R hand/wrist (08/24/2020): Moderate synovial thickening/effusion [...] Martins. Assessment & Plan (08/15/2020 2:10 PM HEAD PAPER TESTER): Patient presents with a prior diagnosis of [...] on file Legal Sex Male 8:28 PM HEAD PAPER TESTER Gender Identity Not on file Sexual Orientation Not on file Last Filed Vital Signs Vital Sign Reading Time Taken Comments Blood Pressure 154/78 09/14/2024 11:37 AM HEAD PAPER TESTER Pulse 57 09/14/2024 11:37 AM HEAD PAPER TESTER Temperature 36.4 C (97.6 F) 04/27/2024 1:10 PM CDT Respiratory Rate 14 04/27/2024 1:10 PM CDT Oxygen Saturation 99% 09/14/2024 11:37 AM HEAD PAPER TESTER Inhaled Oxygen Concentration - - Weight 111.6 kg (246 lb) 09/14/2024 11:37 AM HEAD PAPER TESTER Height 180.3 cm (5' 11 ) 09/14/2024 11:37 AM HEAD PAPER TESTER Body Mass Index 34.31 09/14/2024 11:37 AM HEAD PAPER TESTER Plan of Treatment Not on file Goals [...] Comments SCAN - LABS 09/19/2024 9:45 AM HEAD PAPER TESTER HEPATITIS PANEL, ACUTE Routine 08/15/2020 11:54 AM HEAD PAPER TESTER Psoriasis with arthropathy (CMS/HCC) Fatigue, unspecified type Immunocompromised (CMS/HCC) asphalt smoother current use of therapeutic drug from Last 3 Months or Most Recently Relevant to Health Maintenance Results * SCAN - LABS (09/19/2024 9:45 AM HEAD PAPER TESTER) Michaela HONEYCUTT Final Result * Hepatitis panel, acute (08/15/2020 11:54 AM HEAD PAPER TESTER) Hep A IgM NON-REACTI VE NON-REACT ERNIE [facility] Comment: For additional information, please refer to [email or web address] (This link is being provided for informational/ [...] a test for HCV RNA (test code 54416) is suggested. For additional information please refer to [email or web address]/[email or web address] (This link is being provided for informational/ educational purposes only.) Blood specimen (specimen) 08/15/2020 11:54 AM HEAD PAPER TESTER 08/15/2020 11:55 AM HEAD PAPER TESTER Michaela HONEYCUTT LAB MICROBIOLOGY - [facility] ORDERABLES Final Result [facility] [address] [place] [address] from Last 3 Months or Most Recently Relevant to Health Maintenance Insurance MEDICARE [facility] MEDICARE [facility] MEDICARE [facility] CHOICE PLUS [facility] HMO/PPO Address: [address] [address] [place] [address] MEDICARE [facility] Care Teams Cna Instructor Relationship Specialty Start Date End Date Nicholas Magallanes MD [address] [address] PCP - General Family Medicine 08/02/20 Hank Talbot MD [address] [place] [address] [place] [address] Cardiovascular Disease 01/28/21 Arvind Hickey MD [address] [place] [address] Consulting Physician Rheumatology 10/14/23
[2024-11-16 15:59] LABS: Influenza A QL RT-PCR Negative (Negative); Influenza B QL RT-PCR Negative (Negative); RSV RNA, RT-PCR Negative (Negative); SARS-CoV-2 RNA PCR Negative (Negative)
--- NOTE | 2024-11-16 18:03 | ED_ITS ---
HPI - URI/Sore Throat General Chief Complaint: Upper Respiratory Infection <Elaine Jesus APRN - Last Filed: 11/16/24 18:25> Stated Complaint: cough, sinus drainage <Elaine Jesus APRN - Last Filed: 11/16/24 18:25> Time Seen by Provider: 11/16/24 18:00 <Elaine Jesus APRN - Last Filed: 11/16/24 18:25> Focused HPI: Patient is a 74-year-old male presents to the ER with complaints of 4 day history of flu-like symptoms. He reports he went to urgent care 2 days ago and was placed on doxycycline because he has a history of sinus infections and is scheduled to have sinus surgery in December. Patient reports he has had 3 total doses of doxycycline and feels as though his symptoms have worsened. He endorses a productive cough, wheezing, ?crackles,? intermittent chest tightness, and body aches. He reports he and his are scheduled to to go on a cruise in [place] on Thursday, but he thinks he should cancel this trip d/t his illness. Patient endorses a history of hypertension, hypothyroidism, and chronic back pain. GENERAL: Well-appearing, well-nourished, and in no acute distress. HEAD: Normocephalic, atraumatic. CHEST: Clear to auscultation. ?No respiratory distress. HEART: Regular rate and rhythm.? NEURO: ?Alert and oriented x3. Patient screened in triage and initial orders placed.? ?Additional care and disposition to be based upon?diagnostic testing and treatment. <Elaine Jesus APRN - Last Filed: 11/16/24 18:25> Related Data Home Medications: Home Medications ?Medication ?Instructions ?Recorded ?Confirmed ?Last Taken ?Type golimumab 12.5 mg/mL intravenous 12.5 mg IV DIRECTED 11/11/21 08/09/24 Unknown History solution (Simponi ARIA) meloxicam 15 mg tablet 15 mg PO DAILY pain 08/01/24 08/09/24 Unknown History <Elaine Jesus APRN - Last Filed: 11/16/24 18:25> Allergies/Adverse Reactions: Allergies Allergy/AdvReac Type Severity Reaction Status Date / Time Penicillins Allergy Mild Urticaria Verified 11/14/24 10:56 Sulfa (Sulfonamide Allergy Mild Hives Verified 11/14/24 10:56 Antibiotics) <Elaine Jesus APRN - Last Filed: 11/16/24 18:25> Review of Systems 2 Review of Systems: All systems as dictated in HPI <Adolfo Argueta PA-C - Last Filed: 11/16/24 23:00> [facility] Past Medical History Medical History: Medical History Functional memory problem CT of the head on 06/21/2024 with changes with aging with chronic sinusitis noted. BMI 34.0-34.9,adult Diarrhea At low risk for fall Chronic bilateral low back pain with bilateral sciatica MRI of the lumbar spine on 09/17/2023 reveals degenerative disc disease and facet arthropathy with severe neuroforaminal narrowing at L4-L5 on the right and bilaterally at L5-S1 worse on the left than the right. BMI 32.0-32.9,adult Claudication of lower extremity (~2022) arterial Doppler study of the lower extremities 08/06/2023 normal. No evidence of peripheral vascular disease. Paresthesia of both lower extremities (~06/2023) EMG and nerve conduction study of the lower extremities on 07/29/2023 reveals no neuropathy. Family history of colon cancer in mother colonoscopy every 5 years starting at age 40 with last exam 2016. Normal colonoscopy 12/26/2022 except for diverticulosis. Recheck in 5 years. Encounter for prostate cancer screening PSA 3.40 on 05/16/2022. PSA 2.40 on 05/29/2023. PSA 1.82 on 06/17/2024. Abnormal fasting glucose (05/16/22) fasting glucose 100 on 05/16/2022. Glucose 108 with hemoglobin A1c 5.8 on 11/26/2022. Fasting glucose 93 on 03/03/2023. Fasting glucose 98 with hemoglobin A1c 5.6 on 05/29/2023. Glucose 97 with hemoglobin A1c 6.0 with GFR 75 on 06/17/2024. Anemia (05/16/22) hemoglobin 13.0 with hematocrit 40.6 on 05/16/2022. Hemoglobin 12.4 with vitamin B12 408 and folic acid greater than 24 with iron 61 with 22% saturation and ferritin 80 on 11/26/2022. Hemoglobin 13.2 on 03/03/2023. Hemoglobin 13.4 on 05/29/2023. BMI 33.0-33.9,adult Obesity (BMI 30.0-34.9) Macular pucker, left eye COVID-19 (04/22/22) unvaccinated, 2nd episode, symptoms 04/22/2022 with home test positive 04/22/2022. Chronic neck pain Liver cyst (04/26/21) patient was noted to have a 2.5 cm cyst the right lobe of the liver on CT of the chest on 04/26/2021. The patient was reassured BMI 35.0-35.9,adult Recurrent sinusitis CT of the brain on 06/21/2024 reveals chronic sinusitis. 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 Total cholesterol 86, triglycerides 37, HDL 54, LDL 21 on 11/26/2022. Cholesterol 102, triglycerides 93, HDL 48, LDL 36 with ratio of 2.1 on 05/29/2023. Cholesterol 97, triglycerides 83, HDL 51, LDL 29 with ratio of 1.9 on 06/17/2024. Acute sinusitis Fatigue Post-COVID syndrome persistent fatigue, loss of taste and smell COVID-19 (10/04/20) Nocturia Encounter for screening for other viral diseases Periodic limb movement disorder Severe periodic limb movement disorder with index of 137.9 on 11/03/2019. Iron 61 with 22% saturation and ferritin 80 on 11/26/2022. Chronic depression <Elaine Jesus APRN - Last Filed: 11/16/24 18:25> Surgical History Surgical History: Surgical History H/O eye surgery <Elaine Jesus APRN - Last Filed: 11/16/24 18:25> Family History Family History: Family History Father Cerebrovascular accident, Onset Age: 72 Family history of heart disease in male family member before age 55 Hypertension, Onset Age: 72 Mother Family history of Parkinson's disease Carcinoma of colon Hypertension Patient's mother is , Onset Age: 80 Sibling Patient's brother is in good health Grandparent Family history of cardiovascular disease, Onset Age: 85 Cerebrovascular accident, Onset Age: 60 <Elaine Jesus APRN - Last Filed: 11/16/24 18:25> Social History Social History: Social History Smoking status: Never smoker Alcohol intake: never Substance use: never Substance use type: does not use Lack of Transportation: No Lack of Food: Never True Current Housing: I Have Housing Concerned About Future Housing: No Difficulty Paying Gas/Electric Bills: No Difficulty Paying for Meds: No Currently Unemployed: No Education: Master's Degree or Higher Difficulty w/ Childcare or Family Care: No Living arrangements: with family Gender identity (if verbalized by the patient): Male Spiritual care concerns: No <Elaine Jesus APRN - Last Filed: 11/16/24 18:25> Exam 2 Narrative: GENERAL: Well-appearing, well-nourished, and in no acute distress. HEAD: Normocephalic, atraumatic. EYES: PERRLA and EOMI. ENT: Nares clear, no rhinorrhea or epistaxis. Mucous membranes moist. Oropharynx without tonsillar hypertrophy exudate or other lesions. NECK: Supple. No adenopathy or masses. CHEST: No respiratory distress. Clear to auscultation. No wheezes rales or rhonchi HEART: Regular rate and rhythm. No murmur heard. Normal peripheral pulses. ABDOMEN: Soft, nontender, nondistended, normal active bowel sounds. MSK: Normal range of motion. No edema. SKIN: Warm, dry, no rash. NEURO: Alert and oriented x4. No focal deficits. PSYCH: Normal mood and affect. <Adolfo Argueta PA-C - Last Filed: 11/16/24 23:00> Course Vital Signs Vital signs: Vital Signs Temperature 100.3 F H 11/16/24 15:13 Pulse Rate 79 11/16/24 15:13 Respiratory Rate 20 11/16/24 15:13 Blood Pressure 148/64 H 11/16/24 15:13 Pulse Oximetry 96 11/16/24 15:13 Temperature 100.3 F H 11/16/24 15:13 Pulse Rate 81 11/16/24 19:14 Respiratory Rate 18 11/16/24 19:14 Blood Pressure 148/64 H 11/16/24 15:13 Pulse Oximetry 96 11/16/24 15:13 <Elaine Jesus APRN - Last Filed: 11/16/24 18:25> Vital Signs Temperature 100.3 F H 11/16/24 15:13 Pulse Rate 79 11/16/24 15:13 Respiratory Rate 20 11/16/24 15:13 Blood Pressure 148/64 H 11/16/24 15:13 Pulse Oximetry 96 11/16/24 15:13 Temperature 100.3 F H 11/16/24 15:13 Pulse Rate 81 11/16/24 19:14 Respiratory Rate 18 11/16/24 19:14 Blood Pressure 148/64 H 11/16/24 15:13 Pulse Oximetry 96 11/16/24 15:13 <Adolfo Argueta PA-C - Last Filed: 11/16/24 23:00> MDM - URI/Sore Throat MDM Narrative Medical decision making narrative: This is a 74-year-old male who presents to the ED for chief complaint of cough, congestion x3 days. Patient was originally prescribed doxycycline but only received a script for once per day. The lab work and imaging today are unremarkable overall. No evidence of a developing pneumonia. Viral swabs are negative. No signs of sepsis although temperature is slightly elevated at 100.3. Troponin negative. BNP normal. D-dimer elevated at 0.73, however patient is cleared from PE with the YEARS criteria. Prescribed additional doxycycline for the patient for acute sinusitis as well as productive cough. Encouraged him to start taking doxycycline twice per day which I suspect is the intention of the original prescription acute sinusitis. Patient will be discharged in stable condition. Supportive measures discussed and return precautions given. Patient is understanding and agreeable with plan for discharge with PCP follow-up. <Adolfo Argueta PA-C - Last Filed: 11/16/24 23:00> Lab Data Result diagrams: 11/16/24 18:45 11/16/24 18:45 <Elaine Jesus, OXYGRAPH OPERATOR - Last Filed: 11/16/24 18:25> Labs: Lab Results 11/16/24 11/16/24 Range/Units 15:14 18:45 WBC 5.8 (4.5-10.0) K/mm3 RBC 5.14 (4.6-6.20) M/mm3 Hgb 15.2 (14.0-18.0) g/dL Hct 45.9 (42.0-52.0) % MCV 89.3 (80-100) fl MCH 29.6 (26-34) pg MCHC 33.1 (32-36) g/dl RDW 12.7 (11.5-14.5) % Plt Count 240 (150-375) k/mm3 MPV 8.8 (7.4-10.4) fl Immature Gran % (Auto) 0.3 (0-0.5) % Neut % (Auto) 43.9 L (45.5-73.1) % Lymph % (Auto) 34.9 (18.3-44.2) % Amelia % (Auto) 19.5 H (2.6-8.5) % Eos % (Auto) 0.9 (0-4.4) % Baso % (Auto) 0.5 (0.2-1.2) % Lymph # (Auto) 2.04 (0.9-3.2) K/mm3 Amelia # (Auto) 1.1 H (0.1-0.6) K/mm3 Eos # (Auto) 0.1 (0-0.3) K/mm3 Baso # (Auto) 0.0 (0.0-0.1) K/mm3 Abs Immat Gran (auto) 0.02 (0.00-0.031) K/mm3 Absolute Neuts (auto) 2.6 (1.3-6.7) K/mm3 Absolute Nucleated RBC 0.000 (0.0-0.012) K/mm3 Nucleated RBC % 0.0 (0.0-0.2) % PT 13.5 (11.1-14.7) Seconds INR 1.0 APTT 29.7 (22.3-36.8) Seconds D-Dimer 0.73 H (<0.48) ug/mL Sodium 138 (137-145) mmol/L Potassium 3.6 (3.4-5.0) mmol/L Chloride 98 (98-107) mmol/L Carbon Dioxide 27 (22-30) mmol/L Anion Gap 13 H (4-12) mmol/L BUN 19 D (9-20) mg/dL Creatinine 1.04 (0.7-1.3) mg/dL Estim Creat Clear Calc 70 ml/min Estimated GFR > 60 (59 - ) Glucose 99 (65-110) mg/dL Lactic Acid 1.2 (0.7-2.0) mmol/L Calcium 9.5 (8.4-10.2) mg/dL Magnesium 1.9 (1.6-2.3) mg/dL Total Bilirubin 0.9 (0.2-1.3) mg/dL AST 61 H (17-59) U/L ALT 41 (6-50) U/L Alkaline Phosphatase 97 (38-126) U/L Troponin I < 0.012 (0.000-0.034) ng/mL NT-Pro-B Natriuret Pep < 20 (19.9-100) pg/mL Total Protein 9.0 H (6.3-8.2) g/dL Albumin 4.7 (3.5-5.1) g/dL Influenza A (RT-PCR) Negative (Negative) Influenza B (RT-PCR) Negative (Negative) RSV (RT-PCR) Negative (Negative) SARS-CoV-2 RNA (RT-PCR) Negative (Negative) <Elaine Jesus, OXYGRAPH OPERATOR - Last Filed: 11/16/24 18:25> Lab Results 11/16/24 11/16/24 Range/Units 15:14 18:45 WBC 5.8 (4.5-10.0) K/mm3 RBC 5.14 (4.6-6.20) M/mm3 Hgb 15.2 (14.0-18.0) g/dL Hct 45.9 (42.0-52.0) % MCV 89.3 (80-100) fl MCH 29.6 (26-34) pg MCHC 33.1 (32-36) g/dl RDW 12.7 (11.5-14.5) % Plt Count 240 (150-375) k/mm3 MPV 8.8 (7.4-10.4) fl Immature Gran % (Auto) 0.3 (0-0.5) % Neut % (Auto) 43.9 L (45.5-73.1) % Lymph % (Auto) 34.9 (18.3-44.2) % Amelia % (Auto) 19.5 H (2.6-8.5) % Eos % (Auto) 0.9 (0-4.4) % Baso % (Auto) 0.5 (0.2-1.2) % Lymph # (Auto) 2.04 (0.9-3.2) K/mm3 Amelia # (Auto) 1.1 H (0.1-0.6) K/mm3 Eos # (Auto) 0.1 (0-0.3) K/mm3 Baso # (Auto) 0.0 (0.0-0.1) K/mm3 Abs Immat Gran (auto) 0.02 (0.00-0.031) K/mm3 Absolute Neuts (auto) 2.6 (1.3-6.7) K/mm3 Absolute Nucleated RBC 0.000 (0.0-0.012) K/mm3 Nucleated RBC % 0.0 (0.0-0.2) % PT 13.5 (11.1-14.7) Seconds INR 1.0 APTT 29.7 (22.3-36.8) Seconds D-Dimer 0.73 H (<0.48) ug/mL Sodium 138 (137-145) mmol/L Potassium 3.6 (3.4-5.0) mmol/L Chloride 98 (98-107) mmol/L Carbon Dioxide 27 (22-30) mmol/L Anion Gap 13 H (4-12) mmol/L BUN 19 D (9-20) mg/dL Creatinine 1.04 (0.7-1.3) mg/dL Estim Creat Clear Calc 70 ml/min Estimated GFR > 60 (59 - ) Glucose 99 (65-110) mg/dL Lactic Acid 1.2 (0.7-2.0) mmol/L Calcium 9.5 (8.4-10.2) mg/dL Magnesium 1.9 (1.6-2.3) mg/dL Total Bilirubin 0.9 (0.2-1.3) mg/dL AST 61 H (17-59) U/L ALT 41 (6-50) U/L Alkaline Phosphatase 97 (38-126) U/L Troponin I < 0.012 (0.000-0.034) ng/mL NT-Pro-B Natriuret Pep < 20 (19.9-100) pg/mL Total Protein 9.0 H (6.3-8.2) g/dL Albumin 4.7 (3.5-5.1) g/dL Influenza A (RT-PCR) Negative (Negative) Influenza B (RT-PCR) Negative (Negative) RSV (RT-PCR) Negative (Negative) SARS-CoV-2 RNA (RT-PCR) Negative (Negative) <Adolfo Argueta PA-C - Last Filed: 11/16/24 23:00> Discharge Plan Discharge Clinical Impression: Upper respiratory infection, Cough <Elaine Jesus APRN - Last Filed: 11/16/24 18:25> Patient Disposition: Home, Self-Care <Elaine Jesus APRN - Last Filed: 11/16/24 18:25> Condition: Stable <Elaine Jesus APRN - Last Filed: 11/16/24 18:25> Instructions: Antibiotic Form <Elaine Jesus APRN - Last Filed: 11/16/24 18:25> Additional Instructions: Your exam and imaging today are reassuring overall. Please start taking doxycycline twice per day. Follow-up with your PCP and ENT doctor as scheduled. Continue with regular Tylenol for fever control, 500 mg every 6 hours. Use Tessalon Perles for cough. If you have any new or worsening symptoms please return to the ER for further evaluation. <Elaine Jesus APRN - Last Filed: 11/16/24 18:25> Patient Language: Venezuelan <Elaine Jesus APRN - Last Filed: 11/16/24 18:25> Prescriptions: New doxycycline hyclate 100 mg capsule 100 mg PO BID 5 Days Qty: 11 0RF benzonatate 100 mg capsule 100 mg PO BID PRN (Reason: cough) Qty: 20 0RF No Action fluticasone propionate [Flonase Allergy Relief] 50 mcg/actuation spray,suspension 1 spray intranasal BID Qty: 16 0RF Rx Instructions: administer into each nostril meloxicam 15 mg tablet 15 mg PO DAILY doxycycline hyclate 100 mg capsule 100 mg PO DAILY Qty: 10 0RF Simponi ARIA 12.5 mg/mL solution 12.5 mg IVPB DIRECTED Patient Comments: IV infusion every 2 months by medical certification specialist 2 milligrams/kilogram Q 8 weeks IV aspirin [Adult Low Dose Aspirin] 81 mg tablet,delayed release (DR/EC) 81 mg PO DAILY Qty: 30 11RF amlodipine 5 mg tablet 5 mg PO DAILY Qty: 90 3RF levothyroxine 100 mcg tablet 100 mcg PO DAILY Qty: 90 3RF rosuvastatin [Crestor] 20 mg tablet 20 mg PO DAILY Qty: 90 3RF hydrochlorothiazide 12.5 mg tablet 12.5 mg PO DAILY Qty: 90 3RF lisinopril 40 mg tablet 40 mg PO DAILY Qty: 90 3RF metoprolol succinate 50 mg tablet extended release 24 hr 50 mg PO DAILY Qty: 90 3RF <Elaine Jesus APRN - Last Filed: 11/16/24 18:25> Follow-up/Referrals: Nicholas Magallanes MD [Primary Care Provider] - <Elaine Jesus APRN - Last Filed: 11/16/24 18:25> Stand Alone Forms: Work/School Release IP <Elaine Jesus APRN - Last Filed: 11/16/24 18:25> Time of Disposition: 20:15 <Elaine Jesus APRN - Last Filed: 11/16/24 18:25> 20:15 <Adolfo Argueta PA-C - Last Filed: 11/16/24 23:00>
--- NOTE | 2024-11-16 18:53 | PC.NURSE ---
1st set of blood cultures drawn using kurin device. Kurin label sent in bio bag with blood cultures to lab.
[2024-11-16 18:55] LABS: Basophils Percent Auto 0.5 % (0.2-1.2); Eosinophils Absolute Auto 0.1 K/mm3 (0-0.3); Eosinophils Percent Auto 0.9 % (0-4.4); Hematocrit 45.9 % (42.0-52.0); Hemoglobin 15.2 g/dL (14.0-18.0); Immature Granulocyte Absolute 0.02 K/mm3 (0.00-0.031); Immature Granulocyte Percent A 0.3 % (0-0.5); Lymphocytes Absolute Auto 2.04 K/mm3 (0.9-3.2); Lymphocytes Percent Auto 34.9 % (18.3-44.2); Mean Corpuscular HGB Conc 33.1 g/dl (32-36); Mean Corpuscular Hemoglobin 29.6 pg (26-34); Mean Corpuscular Volume 89.3 fl (80-100); Mean Platelet Volume 8.8 fl (7.4-10.4); Monocytes Absolute Auto 1.1 K/mm3 (0.1-0.6); Monocytes Percent Auto 19.5 % (2.6-8.5); Neutrophils Absolute Auto 2.6 K/mm3 (1.3-6.7); Neutrophils Percent Auto 43.9 % (45.5-73.1); Platelet Count Result 240 k/mm3 (150-375); Red Blood Count 5.14 M/mm3 (4.6-6.20); Red Cell Distribution Width 12.7 % (11.5-14.5); White Blood Count 5.8 K/mm3 (4.5-10.0)
[2024-11-16] MEDS: predniSONE 20 MG TABLET 60 MG PO (18:58)
[2024-11-16 19:06] LABS: Alanine Aminotransferase 41 U/L (6-50); Albumin Level 4.7 g/dL (3.5-5.1); Alkaline Phosphatase 97 U/L (38-126); Anion Gap 13 mmol/L (4-12); Aspartate Amino Transferase 61 U/L (17-59); Bilirubin,Total 0.9 mg/dL (0.2-1.3); Blood Urea Nitrogen 19 mg/dL (9-20); Calcium 9.5 mg/dL (8.4-10.2); Carbon Dioxide 27 mmol/L (22-30); Chloride 98 mmol/L (98-107); Estimated CRCL calculation 70 ml/min; Estimated Glomerular Filt Rate > 60; Glucose 99 mg/dL (65-110); Lactic Acid Reflex 1.2 mmol/L (0.7-2.0); Magnesium 1.9 mg/dL (1.6-2.3); Potassium 3.6 mmol/L (3.4-5.0); Sodium 138 mmol/L (137-145)
[2024-11-16] MEDS: IPRATROPIUM 0.5 MG/ALBUTEROL SULFATE 2.5 MG AMPUL.NEB 3 ML INHALATION ×3 (19:09→19:10)
[2024-11-16 19:14] VITALS: PULSE 81; RESP 18
--- OUTSIDE RECORDS SUMMARY | 2024-11-16 19:14 | XMS_ITS | Clinical Summary ---
Author Organization [facility] [address] [facility] Address [address] [place] [id number] Care Team Providers Care Golf Sales Associate Name Role Phone Nicholas Magallanes MD Primary Care Provider [phone] Hank Talbot MD Unavailable [phone] Arvind Hickey MD Unavailable [phone] Allergies Active Allergy Reactions Criticality Noted Date Comments Penicillins Rash Medium Sulfa (Sulfonamide Antibiotics) Hives Medium 04/12 Medications levothyroxine (SYNTHROID) 100 mcg tablet Take 1 tablet (100 mcg total) by mouth offal separator before breakfast Active lisinopriL (PRINIVIL,ZESTR IL) 40 mg tablet Take 1 tablet (40 mg total) by mouth daily Active hydroCHLOROthia zide (MICROZIDE) 12.5 mg capsule Take 1 capsule (12.5 mg total) by mouth daily Active multivit-minera j-zlon-wkkdqe tablet Take by mouth Active cholecalciferol (VITAMIN D-3) 55554 unit tablet Take 1 tablet (50,000 Units [...] 03/03/2024 Assessment & Plan (09/14/2024 11:57 AM [employer]): Unable to stand for more than 10-15 [...] from the spine. [facility] and failed bilateral L3-4 [...] from the spine. [facility] and failed bilateral L3-4 [...] plana vitrectomy (PPV)/MP left eye (OS) at [facility] -cystoid macular edema (CME) improved left [...] cataract extraction (CE)/IOL both eyes (OU) at [facility] -pt reports he also developed a macular pucker left eye (OS) after surgery; then had pars plana vitrectomy (PPV)/MP also at [facility] -he reports vision has been distorted [...] 11/12/2022 Assessment & Plan (09/14/2024 11:34 AM [employer]): Improved with Otezla but stopped this in [...] joints. Assessment & Plan (11/26/2023 12:10 PM [employer]ER): Improved with Otezla but stopped this in 05/2023 due to s/e with only slight recurrence of psoriasis on his back. Could consider Cosentyx IV in the future if necessary for skin and joints. Assessment & Plan (08/27/2023 12:44 PM [employer]): Improved with Otezla but stopped this in [...] therapies. Assessment & Plan (12/02/2022 11:29 AM [employer]): Kenalog IM given 11/12/22 with significant improvement. [...] involvement. Assessment & Plan (11/12/2022 4:47 PM [employer]ER): Exacerbation involving multiple small plaques all over [...] also told he had macular pucker. Saw [facility]ometry who started ketorolac and prednisolone drops for cystoid macular edema (OS). Has f/u again in 03/2023. Assessment & Plan (12/02/2022 11:29 AM [employer] TE[employer]ER): Notes change in his vision s/p cataract removal and was also told he had macular pucker. Recommend he seek 2nd opinion at [facility] due to his continued concerns. Given name of Dr. Mayo. He is going to discuss referral with PCP at his upcoming visit. Assessment & Plan (11/12/2022 4:57 PM [employer] TE[employer]ER): Notes change in his vision s/p cataract removal and was also told he had macular pucker. Recommend he seek 2nd opinion at [facility] due to his continued concern. Given name of Dr. Mayo. He is going to discuss referral with PCP. Assessment & Plan (08/19/2022 12:47 PM [employer]ER): Notes change in his vision s/p cataract removal and was also told he had macular pucker. Recommend he seek 2nd opinion at [facility] due to his continued concerns and he will further discuss referral with his PCP. 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 2019 Overview (08/17/2020): Hepatitis negative: 08/2020 TB Quant negative: 08/2020 Assessment & Plan (09/14/2024 11:33 AM [employer]): TB quant negative: 08/2020 Hepatitis negative: 08/2020 Assessment & Plan (06/16/2024 11:05 AM CDT): TB quant negative: 08/2020 Hepatitis negative: 08/2020 Assessment & Plan (03/03/2024 12:28 PM CDT): TB quant negative: 08/2020 Hepatitis negative: 08/2020 Assessment & Plan (11/26/2023 10:04 AM [employer]): TB quant negative: 08/2020 Hepatitis negative: 08/2020 Assessment & Plan (08/27/2023 12:44 PM [employer]): TB quant negative: 08/2020 Hepatitis negative: 08/2020 Assessment & Plan (05/26/2023 12:55 PM CDT): TB quant negative: 08/2020 Hepatitis negative: 08/2020 Assessment & Plan (03/03/2023 10:49 AM CDT): TB quant negative: 08/2020 Hepatitis negative: 08/2020 Assessment & Plan (12/02/2022 11:30 AM [employer]): TB quant negative: 08/2020 Hepatitis negative: 08/2020 Assessment & Plan (11/12/2022 4:45 PM [employer]ER): TB quant negative: 08/2020 Hepatitis negative: 08/2020 Assessment & Plan (08/19/2022 12:49 PM [employer]ER): TB quant negative: 08/2020 Hepatitis negative: 08/2020 Assessment & Plan (05/22/2022 10:53 AM CDT): TB quant negative: 08/2020 Hepatitis negative: 08/2020 Assessment & Plan (01/29/2022 11:51 AM CDT): TB quant negative: 08/2020 Hepatitis negative: 08/2020 Assessment & Plan (10/22/2021 11:47 AM [employer]): TB quant negative: 08/2020 Hepatitis negative: 08/2020 Assessment & Plan (07/29/2021 12:17 PM CDT): TB quant negative: 08/2020 Hepatitis negative: 08/2020 Assessment & Plan (04/29/2021 11:32 AM CDT): TB quant negative: 08/2020 Hepatitis negative: 08/2020 Assessment & Plan (01/28/2021 10:57 AM CDT): TB quant negative: 08/2020 Hepatitis negative: 08/2020 Assessment & Plan (11/16/2020 11:12 AM [employer]): TB quant negative: 08/2020 Hepatitis negative: 08/2020 Assessment & Plan (08/30/2020 12:25 PM [employer]ER): TB quant negative: 08/2020 Hepatitis negative: 08/2020 Assessment & Plan (08/15/2020 2:27 PM [employer]ER): TB quant negative: 04/2019, repeat today Check [...] LMBB. 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 Continue meloxicam 15mg daily as he does notice some benefit with this. Assessment & Plan (08/27/2023 12:48 PM [employer] TE[employer]ER): Unable to stand for more than 10-15 [...] PCP. Assessment & Plan (12/02/2022 11:30 AM [employer] TE[employer]ER): Unable to stand for more than 10-15 [...] PCP. Assessment & Plan (08/19/2022 12:45 PM [employer] TE[employer]ER): Unable to stand for more than 10-15 [...] PT. Assessment & Plan (10/22/2021 12:32 PM [employer] TE[employer]ER): Unable to stand for more than 10-15 [...] he [place] Continue meloxicam 15mg [...] this. Assessment & Plan (11/16/2020 11:12 AM [employer] TE[employer]ER): Unable to stand for more than 10-15 [...] time. Assessment & Plan (08/30/2020 12:26 PM MID[employer] TE[employer]ER): Unable to stand for more than 10-15 [...] time. Assessment & Plan (08/15/2020 2:31 PM [employer]ER): Unable to stand for more than 10-15 [...] clinically. Assessment & Plan (09/14/2024 11:55 AM [employer]ER): Low cdai. Remains on Simponi aria IV [...] joint coverage. Continue Simponi aria 2mg/kg IV [id number]. Will defer labs today as he reports [...] joint coverage. Continue Simponi aria 2mg/kg IV [id number]. Will defer labs today as he is [...] joint coverage. Continue Simponi aria 2mg/kg IV [id number]. Routine labs today. Follow up in 3 months. Sooner if needed. Assessment & Plan (11/26/2023 12:12 PM [employer]): Low cdai. Restarted Simponi aria IV 08/24/2020 [...] joint coverage. Continue Simponi aria 2mg/kg IV i1opryl. Follow up in 3 months. Sooner if needed. Seen with Dr. Hickey. Assessment & Plan (08/27/2023 12:51 PM [employer]ER): Low-moderate cdai. Restarted Simponi aria IV 08/24/2020 with improvement of peripheral joint complaints. MTX caused GI upset in the past however could consider retrying this in the future as combination therapy with simponi aria if needed. Otezla caused brain fog/mood changes. Continue Simponi aria 2mg/kg IV [id number]. Follow up in 3 months. Sooner if [...] causing tinnitus. Continue Simponi aria 2mg/kg IV [id number]. Follow up in 3 months. Sooner if [...] joint complaints. Continue Simponi aria 2mg/kg IV [id number]. Continue meloxicam 15mg daily. Due to worsening psoriasis will try Otezla (through samples). Studies have shown no significant adverse effects of combining Otezla with TNFi. Patient is going to wait to start Otezla until after his next Simponi aria infusion. Follow up in 2 months when back from [place]. Sooner if needed. Seen with Dr. Martins. Assessment & Plan (12/02/2022 11:32 AM [employer]ER): Low cdai. Restarted Simponi aria IV 08/24/2020 [...] if needed. Continue Simponi aria 2mg/kg IV [id number]. Continue meloxicam 15mg daily. Previously discussed addition of an oral DMARD (MTX vs leflunomide) however patient defers additional medication at this time. If psoriasis would worsen, could consider changing biologics next. Recent labs reviewed with patient. Follow up in 3-4 months. Sooner if needed. Assessment & Plan (11/12/2022 4:44 PM [employer]ER): Low cdai. 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 MTX caused GI upset in the past however could consider retrying this in the future as combination therapy with simponi aria if needed. Continue Simponi aria 2mg/kg IV [id number]. Continue meloxicam 15mg daily. Previously discussed addition of an oral DMARD (MTX vs leflunomide) however patient defers additional medication at this time. Assessment & Plan (08/19/2022 12:47 PM [employer] TEACHER): Low cdai. Restarted Simponi aria IV 08/24/2020 with improvement of peripheral joint complaints. MTX caused GI upset in the past however could consider retrying this in the future as combination therapy with simponi aria if needed. Overall, symptoms remain stable. Continue Simponi aria 2mg/kg IV [id number]. Continue meloxicam 15mg daily. Previously discussed addition [...] remain stable. Continue Simponi aria 2mg/kg IV [id number]. Continue meloxicam 15mg daily. Previously discussed addition [...] remain stable. Continue Simponi aria 2mg/kg IV [id number]. Continue meloxicam 15mg daily. Previously discussed addition of an oral DMARD (MTX vs leflunomide) however patient defers additional medication at this time. Routine labs today. Follow up in 3-4 months. Sooner if needed. 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 Restarted Simponi aria IV 08/24/2020 with improvement of peripheral joint complaints.. MTX caused GI upset in the past however could consider retrying this in the future as combination therapy with simponi aria if needed. Overall, symptoms remain stable. Continue Simponi aria 2mg/kg IV [id number]. Continue meloxicam 15mg daily. Previously discussed addition [...] remain stable. Continue Simponi aria 2mg/kg IV [id number]. Continue meloxicam 15mg daily. Discussed addition of [...] remain stable. Continue Simponi aria 2mg/kg IV [id number]. Continue meloxicam 15mg daily. Routine labs today. [...] if needed. Continue Simponi aria 2mg/kg IV [id number]. Continue meloxicam 15mg daily. Will request recent labs from cardiology Dr. Talbot. Follow up in 3 months. Sooner if needed. Assessment & Plan (11/16/2020 12:00 PM [employer]ISH [employer]ER): Moderate cdai. Synovitis without tenderness noted on [...] Martins. Assessment & Plan (08/30/2020 12:18 PM [employer] TE[employer]ER): US R hand/wrist (08/24/2020): Moderate synovial thickening/effusion [...] Martins. Assessment & Plan (08/15/2020 2:10 PM [employer] TEACHER): Patient presents with a prior diagnosis of [...] Department Care Team Description 09/19/2024 Orders Only [facility] [address] [place] [phone] Michaela Weinberg PA 09/14/2024 11:00 AM [employer] Office Visit [facility] [address] [place] [phone] Michaela Weinberg PA Psoriasis with arthropathy (HCC) (Primary Dx); Psoriasis; Chronic midline low back pain, unspecified whether sciatica present; retirement current use of therapeutic drug 09/14/2024 Telephone [facility] [address] [place] [phone] Michaela Weinberg PA Labs Requested from PCP [...] Medical History Medical History Date Comments 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) drug therapy High risk medications (not [...] on file Legal Sex Male 8:28 PM [employer] Gender Identity Not on file Sexual Orientation Not on file Obstetrics History Last Filed Vital Signs Vital Sign Reading Time Taken Comments Blood Pressure 154/78 09/14/2024 11:37 AM [employer] Pulse 57 09/14/2024 11:37 AM [employer] TE[employer] Temperature 36.4 C (97.6 F) 04/27/2024 1:10 PM CDT Respiratory Rate 14 04/27/2024 1:10 PM CDT Oxygen Saturation 99% 09/14/2024 11:37 AM [employer] Inhaled Oxygen Concentration - - Weight 111.6 kg (246 lb) 09/14/2024 11:37 AM [employer] TE[employer] Height 180.3 cm (5' 11 ) 09/14/2024 11:37 AM [employer] Body Mass Index 34.31 09/14/2024 11:37 AM [employer] Plan of Treatment Health Maintenance Due Date [...] Comments SCAN - LABS 09/19/2024 9:45 AM [employer]ER HEPATITIS PANEL, ACUTE Routine 08/15/2020 11:54 AM [employer] Psoriasis with arthropathy (CMS/HCC) Fatigue, unspecified type Immunocompromised (CMS/HCC) 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 For additional information please refer to http://[employer]/faq/XYZ45o4 (This link is being provided for informational/ educational purposes only.) Blood specimen (specimen) 08/15/2020 11:54 AM [employer] TEACHER 08/15/2020 11:55 AM [employer] TE[employer]ER Michaela HONEYCUTT LAB MICROBIOLOGY - GE NERAL ORDERABLES Final Result POORNIMA [facility] [address] [place] [id number] from Last 3 Months or Most Recently Relevant to Health Maintenance Insurance MEDICARE [facility] MEDICARE [facility] MEDICARE [facility] CHOICE PLUS [facility] HMO/PPO Address: [address] [address] [place] [address] MEDICARE [employer] Care Teams Golf Sales Associate Relationship Specialty Start Date End Date Nicholas Magallanes MD [address] [address] PCP - General Family Medicine 08/02/20 Hank Talbot MD [address] [place] [address] DR YI [address] [place] [id number] Cardiovascular Disease 01/28/21 Arvind Hickey MD [address] [place] [address] Consulting Physician Rheumatology 10/14/23
--- OUTSIDE RECORDS SUMMARY | 2024-11-16 19:14 | XMS_ITS | Referral Summary ---
Author Organization [facility] [address] [facility] Address [address] [place] [id number] Care Team Providers Care Vocational Teacher Name Role Phone Nicholas Magallanes MD Primary Care Provider [phone] Hank Talbot MD Unavailable [phone] Arvind Hickey MD Unavailable [phone] Encounters Date Type Department Care Team Description 09/19/2024 Orders Only [facility] [address] [place] [phone] Michaela Weinberg PA 09/14/2024 Telephone [facility] [address] [place] [phone] Michaela Weinberg PA Labs Requested from PCP 09/14/2024 11:00 AM CPA TAX Office Visit [facility] [address] [place] [phone] Michaela Weinberg PA Psoriasis with arthropathy (HCC) (Primary Dx); Psoriasis; Chronic midline low back pain, unspecified whether sciatica present; 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 Last 3 Months Allergies Active Allergy Reactions Criticality Noted Date Comments Penicillins Rash Medium Sulfa (Sulfonamide Antibiotics) Hives Medium 04/12 Medications levothyroxine (SYNTHROID) 100 mcg tablet Take 1 tablet (100 mcg total) by mouth early morning babysitter before breakfast Active lisinopriL (PRINIVIL,ZESTR IL) 40 mg tablet Take 1 tablet (40 mg total) by mouth daily Active hydroCHLOROthia zide (MICROZIDE) 12.5 mg capsule Take 1 capsule (12.5 mg total) by mouth daily Active multivit-minera h-yiqs-lylkbn tablet Take by mouth Active cholecalciferol (VITAMIN D-3) 04158 unit tablet Take 1 tablet (50,000 Units [...] 03/03/2024 Assessment & Plan (09/14/2024 11:57 AM CPA TAX): Unable to stand for more than 10-15 [...] from the spine. 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 [...] plana vitrectomy (PPV)/MP left eye (OS) at [facility] -cystoid macular edema (CME) stable/slightly worsened with [...] plana vitrectomy (PPV)/MP left eye (OS) at [facility] -cystoid macular edema (CME) improved left eye [...] cataract extraction (CE)/IOL both eyes (OU) at [facility] -pt reports he also developed a macular pucker left eye (OS) after surgery; then had pars plana vitrectomy (PPV)/MP also at [facility] -he reports vision has been distorted and [...] 11/12/2022 Assessment & Plan (09/14/2024 11:34 AM CPA TAX): Improved with Otezla but stopped this in [...] joints. Assessment & Plan (11/26/2023 12:10 PM CPA TAX): Improved with Otezla but stopped this in 05/2023 due to s/e with only slight recurrence of psoriasis on his back. Could consider Cosentyx IV in the future if necessary for skin and joints. Assessment & Plan (08/27/2023 12:44 PM CPA TAX): Improved with Otezla but stopped this in [...] therapies. Assessment & Plan (12/02/2022 11:29 AM CPA TAX): Kenalog IM given 11/12/22 with significant improvement. [...] involvement. Assessment & Plan (11/12/2022 4:47 PM CPA TAX): Exacerbation involving multiple small plaques all over [...] also told he had macular pucker. Saw [facility] who started ketorolac and prednisolone drops for cystoid macular edema (OS). Has f/u again in 03/2023. Assessment & Plan (12/02/2022 11:29 AM CPA TAX): Notes change in his vision s/p cataract removal and was also told he had macular pucker. Recommend he seek 2nd opinion at [facility] due to his continued concerns. Given name of Dr. Mayo. He is going to discuss referral with PCP at his upcoming visit. Assessment & Plan (11/12/2022 4:57 PM CPA TAX): Notes change in his vision s/p cataract removal and was also told he had macular pucker. Recommend he seek 2nd opinion at [facility] due to his continued concern. Given name of Dr. Mayo. He is going to discuss referral with PCP. Assessment & Plan (08/19/2022 12:47 PM CPA TAX): Notes change in his vision s/p cataract removal and was also told he had macular pucker. Recommend he seek 2nd opinion at [facility] due to his continued concerns and he will further discuss referral with his PCP. 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) 05/29/2021 USP current use of therapeutic drug 2019 Overview (08/17/2020): Hepatitis negative: 08/2020 TB Quant negative: 08/2020 Assessment & Plan (09/14/2024 11:33 AM CPA TAX): TB quant negative: 08/2020 Hepatitis negative: 08/2020 Assessment & Plan (06/16/2024 11:05 AM CDT): TB quant negative: 08/2020 Hepatitis negative: 08/2020 Assessment & Plan (03/03/2024 12:28 PM CDT): TB quant negative: 08/2020 Hepatitis negative: 08/2020 Assessment & Plan (11/26/2023 10:04 AM CPA TAX): TB quant negative: 08/2020 Hepatitis negative: 08/2020 Assessment & Plan (08/27/2023 12:44 PM CPA TAX): TB quant negative: 08/2020 Hepatitis negative: 08/2020 Assessment & Plan (05/26/2023 12:55 PM CDT): TB quant negative: 08/2020 Hepatitis negative: 08/2020 Assessment & Plan (03/03/2023 10:49 AM CDT): TB quant negative: 08/2020 Hepatitis negative: 08/2020 Assessment & Plan (12/02/2022 11:30 AM CPA TAX): TB quant negative: 08/2020 Hepatitis negative: 08/2020 Assessment & Plan (11/12/2022 4:45 PM CPA TAX): TB quant negative: 08/2020 Hepatitis negative: 08/2020 Assessment & Plan (08/19/2022 12:49 PM CPA TAX): TB quant negative: 08/2020 Hepatitis negative: 08/2020 Assessment & Plan (05/22/2022 10:53 AM CDT): TB quant negative: 08/2020 Hepatitis negative: 08/2020 Assessment & Plan (01/29/2022 11:51 AM CDT): TB quant negative: 08/2020 Hepatitis negative: 08/2020 Assessment & Plan (10/22/2021 11:47 AM CPA TAX): TB quant negative: 08/2020 Hepatitis negative: 08/2020 Assessment & Plan (07/29/2021 12:17 PM CDT): TB quant negative: 08/2020 Hepatitis negative: 08/2020 Assessment & Plan (04/29/2021 11:32 AM CDT): TB quant negative: 08/2020 Hepatitis negative: 08/2020 Assessment & Plan (01/28/2021 10:57 AM CDT): TB quant negative: 08/2020 Hepatitis negative: 08/2020 Assessment & Plan (11/16/2020 11:12 AM CPA TAX): TB quant negative: 08/2020 Hepatitis negative: 08/2020 Assessment & Plan (08/30/2020 12:25 PM CPA TAX): TB quant negative: 08/2020 Hepatitis negative: 08/2020 Assessment & Plan (08/15/2020 2:27 PM CPA TAX): TB quant negative: 04/2019, repeat today Check [...] LMBB. Assessment & Plan (11/26/2023 11:22 AM CPA TAX): Unable to stand for more than 10-15 [...] and will provide referral to PM&R at [facility]. Continue meloxicam 15mg daily as he does notice some benefit with this. Assessment & Plan (08/27/2023 12:48 PM CPA TAX): Unable to stand for more than 10-15 [...] PCP. Assessment & Plan (12/02/2022 11:30 AM CPA TAX): Unable to stand for more than 10-15 [...] PCP. Assessment & Plan (08/19/2022 12:45 PM CPA TAX): Unable to stand for more than 10-15 [...] PT. Assessment & Plan (10/22/2021 12:32 PM CPA TAX): Unable to stand for more than 10-15 [...] this. Assessment & Plan (11/16/2020 11:12 AM CPA TAX): Unable to stand for more than 10-15 [...] time. Assessment & Plan (08/30/2020 12:26 PM CPA TAX): Unable to stand for more than 10-15 [...] time. Assessment & Plan (08/15/2020 2:31 PM CPA TAX): Unable to stand for more than 10-15 [...] clinically. Assessment & Plan (09/14/2024 11:55 AM CPA TAX): Low cdai. Remains on Simponi aria IV [...] joint coverage. Continue Simponi aria 2mg/kg IV [id number]. Will defer labs today as he reports [...] joint coverage. Continue Simponi aria 2mg/kg IV [id number]. Will defer labs today as he is [...] joint coverage. Continue Simponi aria 2mg/kg IV [id number]. Routine labs today. Follow up in 3 months. Sooner if needed. Assessment & Plan (11/26/2023 12:12 PM CPA TAX): Low cdai. Restarted Simponi aria IV 08/24/2020 [...] joint coverage. Continue Simponi aria 2mg/kg IV [id number]. Follow up in 3 months. Sooner if needed. Seen with Dr. Hickey. Assessment & Plan (08/27/2023 12:51 PM CPA TAX): Low-moderate cdai. Restarted Simponi aria IV 08/24/2020 with improvement of peripheral joint complaints. MTX caused GI upset in the past however could consider retrying this in the future as combination therapy with simponi aria if needed. Otezla caused brain fog/mood changes. Continue Simponi aria 2mg/kg IV [id number]. Follow up in 3 months. Sooner if [...] causing tinnitus. Continue Simponi aria 2mg/kg IV [id number]. Follow up in 3 months. Sooner if [...] joint complaints. Continue Simponi aria 2mg/kg IV [id number]. Continue meloxicam 15mg daily. Due to worsening psoriasis will try Otezla (through samples). Studies have shown no significant adverse effects of combining Otezla with TNFi. Patient is going to wait to start Otezla until after his next Simponi aria infusion. Follow up in 2 months when back from [place]. Sooner if needed. Seen with Dr. Martins. Assessment & Plan (12/02/2022 11:32 AM CPA TAX): Low cdai. Restarted Simponi aria IV 08/24/2020 [...] if needed. Continue Simponi aria 2mg/kg IV [id number]. Continue meloxicam 15mg daily. Previously discussed addition of an oral DMARD (MTX vs leflunomide) however patient defers additional medication at this time. If psoriasis would worsen, could consider changing biologics next. Recent labs reviewed with patient. Follow up in 3-4 months. Sooner if needed. Assessment & Plan (11/12/2022 4:44 PM CPA TAX): Low cdai. 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 MTX caused GI upset in the past however could consider retrying this in the future as combination therapy with simponi aria if needed. Continue Simponi aria 2mg/kg IV g8sevac. Continue meloxicam 15mg daily. Previously discussed addition of an oral DMARD (MTX vs leflunomide) however patient defers additional medication at this time. Assessment & Plan (08/19/2022 12:47 PM CPA TAX): Low cdai. Restarted Simponi aria IV 08/24/2020 with improvement of peripheral joint complaints. MTX caused GI upset in the past however could consider retrying this in the future as combination therapy with simponi aria if needed. Overall, symptoms remain stable. Continue Simponi aria 2mg/kg IV [id number]. Continue meloxicam 15mg daily. Previously discussed addition [...] remain stable. Continue Simponi aria 2mg/kg IV [id number]. Continue meloxicam 15mg daily. Previously discussed addition [...] remain stable. Continue Simponi aria 2mg/kg IV i3myezc. Continue meloxicam 15mg daily. Previously discussed addition of an oral DMARD (MTX vs leflunomide) however patient defers additional medication at this time. Routine labs today. Follow up in 3-4 months. Sooner if needed. Assessment & Plan (10/22/2021 11:52 AM CPA TAX): Moderate cdai. Restarted Simponi aria IV 08/24/2020 with improvement of peripheral joint complaints.. MTX caused GI upset in the past however could consider retrying this in the future as combination therapy with simponi aria if needed. Overall, symptoms remain stable. Continue Simponi aria 2mg/kg IV [id number]. Continue meloxicam 15mg daily. Previously discussed addition [...] remain stable. Continue Simponi aria 2mg/kg IV [id number]. Continue meloxicam 15mg daily. Discussed addition of [...] remain stable. Continue Simponi aria 2mg/kg IV g2qnuts. Continue meloxicam 15mg daily. Routine labs today. [...] if needed. Continue Simponi aria 2mg/kg IV i6yeogx. Continue meloxicam 15mg daily. Will request recent labs from cardiology Dr. Talbot. Follow up in 3 months. Sooner if needed. Assessment & Plan (11/16/2020 12:00 PM CPA TAX): Moderate cdai. Synovitis without tenderness noted on [...] Martins. Assessment & Plan (08/30/2020 12:18 PM CPA TAX): US R hand/wrist (08/24/2020): Moderate synovial thickening/effusion [...] Martins. Assessment & Plan (08/15/2020 2:10 PM CPA TAX): Patient presents with a prior diagnosis of [...] on file Legal Sex Male 8:28 PM CPA TAX Gender Identity Not on file Sexual Orientation Not on file Last Filed Vital Signs Vital Sign Reading Time Taken Comments Blood Pressure 154/78 09/14/2024 11:37 AM CPA TAX Pulse 57 09/14/2024 11:37 AM CPA TAX Temperature 36.4 C (97.6 F) 04/27/2024 1:10 PM CDT Respiratory Rate 14 04/27/2024 1:10 PM CDT Oxygen Saturation 99% 09/14/2024 11:37 AM CPA TAX Inhaled Oxygen Concentration - - Weight 111.6 kg (246 lb) 09/14/2024 11:37 AM CPA TAX Height 180.3 cm (5' 11 ) 09/14/2024 11:37 AM CPA TAX Body Mass Index 34.31 09/14/2024 11:37 AM CPA TAX Plan of Treatment Not on file Goals [...] Comments SCAN - LABS 09/19/2024 9:45 AM CPA TAX HEPATITIS PANEL, ACUTE Routine 08/15/2020 11:54 AM CPA TAX Psoriasis with arthropathy (CMS/HCC) Fatigue, unspecified type Immunocompromised (CMS/HCC) 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 For additional information please refer to http://[employer]/faq/GQO79s4 (This link is being provided for informational/ educational purposes only.) Blood specimen (specimen) 08/15/2020 11:54 AM CPA TAX 08/15/2020 11:55 AM CPA TAX Michaela HONEYCUTT LAB MICROBIOLOGY - [facility] ORDERABLES Final Result [facility] [address] [place] [address] from Last 3 Months or Most Recently Relevant to Health Maintenance Insurance MEDICARE [facility] MEDICARE [facility] MEDICARE [facility] CHOICE PLUS [facility] HMO/PPO Address: [address] [address] [place] [address] MEDICARE [facility] Care Teams Vocational Teacher Relationship Specialty Start Date End Date Nicholas Magallanes MD [address] [address] PCP - General Family Medicine 08/02/20 Hank Talbot MD [address] [place] [address] [place] [address] Cardiovascular Disease 01/28/21 Arvind Hickey MD [address] [place] [address] Consulting Physician Rheumatology 10/14/23
[2024-11-16 19:17] LABS: NT Pro B Type Natriuretic Pept < 20 pg/mL (19.9-100); Troponin I < 0.012 ng/mL (0.000-0.034)
[2024-11-16 19:20] LABS: Prothrombin Time 13.5 Seconds (11.1-14.7)
[2024-11-16 19:23] LABS: Partial Thromboplastin Time 29.7 Seconds (22.3-36.8)
[2024-11-16 19:29] LABS: D Dimer 0.73 ug/mL (<0.48)
== END 2024-11-16 20:44 | disposition home or self-care (01) ==
PROVIDERS: Emergency Medicine; Registered Nurse; Emergency Provider Physician Assistant; PCP Family Medicine
DX: J06.9 Acute upper respiratory infection, unspecified (principal); I10 Essential (primary) hypertension; E03.9 Hypothyroidism, unspecified; M54.9 Dorsalgia, unspecified; G89.29 Other chronic pain; E78.2 Mixed hyperlipidemia; Z20.822 Contact with and (suspected) exposure to COVID-19
CPT/HCPCS: 36415; 71046; 80053; 83605; 83735; 83880; 84484; 85025; 85380; 85610; 85730; 87040; 87637; 94640; 99284; J7512

== ENCOUNTER 2024-12-06 11:11 | Emergency (ER) | payer MEDICARE, SELFPAY ==
--- NOTE | ~2024-12-06 | XR_ITS ---
CHEST RADIOGRAPH, PA AND LATERAL CLINICAL HISTORY: COUGH, ANTERIOR CP . COMPARISON: 11/16/2024 TECHNIQUE: PA and lateral views of the chest. FINDINGS The cardiomediastinal silhouette is unremarkable. The lungs are clear. Visualized osseous structures and soft tissues are unremarkable. IMPRESSION: No focal infiltrate or effusion. Reviewed, dictated and finalized at location [facility]. [facility]
[2024-12-06 11:22] VITALS: BP 102/72; PULSE 84; RESP 18; TEMP 37.1; O2SAT 98
[2024-12-06 12:53] LABS: Influenza A QL RT-PCR Positive (Negative); Influenza B QL RT-PCR Negative (Negative); RSV RNA, RT-PCR Negative (Negative); SARS-CoV-2 RNA PCR Negative (Negative)
--- OUTSIDE RECORDS SUMMARY | 2024-12-06 13:18 | XMS_ITS | Patient Health Record ---
Author Organization [facility] Address [id number] [place] [address] [place] [phone] Care Team Providers Care Strap Maker Name Role Phone Jaylan BALDERAS, Santi Unavailable Unavailable Reason For Referral No Information Plan Of Treatment No Information
--- OUTSIDE RECORDS SUMMARY | 2024-12-06 13:18 | XMS_ITS | Clinical Summary ---
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 He was seen by [facility] and failed bilateral L3-4 and [...] from the spine. 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 Assessment & Plan (11/26/2023 12:10 PM FOREST RESOURCES PROFESSOR): Improved with Otezla but stopped this in 05/2023 due to s/e with only slight recurrence of psoriasis on his back. Could consider Cosentyx IV in the future if necessary for skin and joints. Assessment & Plan (08/27/2023 12:44 PM FOREST RESOURCES PROFESSOR): Improved with Otezla but stopped this in [...] therapies. Assessment & Plan (12/02/2022 11:29 AM FOREST RESOURCES PROFESSOR): Kenalog IM given 11/12/22 with significant improvement. [...] involvement. Assessment & Plan (11/12/2022 4:47 PM FOREST RESOURCES PROFESSOR): Exacerbation involving multiple small plaques all over [...] also told he had macular pucker. 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 Has f/u again in 03/2023. Assessment & Plan (12/02/2022 11:29 AM FOREST RESOURCES PROFESSOR): Notes change in his vision s/p cataract removal and was also told he had macular pucker. Recommend he seek 2nd opinion at [facility] due to his continued concerns. Given name of Dr. Mayo. He is going to discuss referral with PCP at his upcoming visit. Assessment & Plan (11/12/2022 4:57 PM FOREST RESOURCES PROFESSOR): Notes change in his vision s/p cataract removal and was also told he had macular pucker. Recommend he seek 2nd opinion at [facility] due to his continued concern. Given name of Dr. Mayo. He is going to discuss referral with PCP. Assessment & Plan (08/19/2022 12:47 PM FOREST RESOURCES PROFESSOR): Notes change in his vision s/p cataract removal and was also told he had macular pucker. Recommend he seek 2nd opinion at [facility] due to his continued concerns and he will further discuss referral with his PCP. 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) 05/29/2021 correction current use of therapeutic drug 2019 Overview (08/17/2020): Hepatitis negative: 08/2020 TB Quant negative: 08/2020 Assessment & Plan (09/14/2024 11:33 AM FOREST RESOURCES PROFESSOR): TB quant negative: 08/2020 Hepatitis negative: 08/2020 Assessment & Plan (06/16/2024 11:05 AM CDT): TB quant negative: 08/2020 Hepatitis negative: 08/2020 Assessment & Plan (03/03/2024 12:28 PM CDT): TB quant negative: 08/2020 Hepatitis negative: 08/2020 Assessment & Plan (11/26/2023 10:04 AM FOREST RESOURCES PROFESSOR): TB quant negative: 08/2020 Hepatitis negative: 08/2020 Assessment & Plan (08/27/2023 12:44 PM FOREST RESOURCES PROFESSOR): TB quant negative: 08/2020 Hepatitis negative: 08/2020 Assessment & Plan (05/26/2023 12:55 PM CDT): TB quant negative: 08/2020 Hepatitis negative: 08/2020 Assessment & Plan (03/03/2023 10:49 AM CDT): TB quant negative: 08/2020 Hepatitis negative: 08/2020 Assessment & Plan (12/02/2022 11:30 AM FOREST RESOURCES PROFESSOR): TB quant negative: 08/2020 Hepatitis negative: 08/2020 Assessment & Plan (11/12/2022 4:45 PM FOREST RESOURCES PROFESSOR): TB quant negative: 08/2020 Hepatitis negative: 08/2020 Assessment & Plan (08/19/2022 12:49 PM FOREST RESOURCES PROFESSOR): TB quant negative: 08/2020 Hepatitis negative: 08/2020 Assessment & Plan (05/22/2022 10:53 AM CDT): TB quant negative: 08/2020 Hepatitis negative: 08/2020 Assessment & Plan (01/29/2022 11:51 AM CDT): TB quant negative: 08/2020 Hepatitis negative: 08/2020 Assessment & Plan (10/22/2021 11:47 AM FOREST RESOURCES PROFESSOR): TB quant negative: 08/2020 Hepatitis negative: 08/2020 Assessment & Plan (07/29/2021 12:17 PM CDT): TB quant negative: 08/2020 Hepatitis negative: 08/2020 Assessment & Plan (04/29/2021 11:32 AM CDT): TB quant negative: 08/2020 Hepatitis negative: 08/2020 Assessment & Plan (01/28/2021 10:57 AM CDT): TB quant negative: 08/2020 Hepatitis negative: 08/2020 Assessment & Plan (11/16/2020 11:12 AM FOREST RESOURCES PROFESSOR): TB quant negative: 08/2020 Hepatitis negative: 08/2020 Assessment & Plan (08/30/2020 12:25 PM FOREST RESOURCES PROFESSOR): TB quant negative: 08/2020 Hepatitis negative: 08/2020 Assessment & Plan (08/15/2020 2:27 PM FOREST RESOURCES PROFESSOR): TB quant negative: 04/2019, repeat today Check [...] LMBB. Assessment & Plan (11/26/2023 11:22 AM FOREST RESOURCES PROFESSOR): Unable to stand for more than 10-15 [...] and will provide referral to PM&R at [facility]. Continue meloxicam 15mg daily as he does notice some benefit with this. Assessment & Plan (08/27/2023 12:48 PM FOREST RESOURCES PROFESSOR): Unable to stand for more than 10-15 [...] PCP. Assessment & Plan (12/02/2022 11:30 AM FOREST RESOURCES PROFESSOR): Unable to stand for more than 10-15 [...] PCP. Assessment & Plan (08/19/2022 12:45 PM FOREST RESOURCES PROFESSOR): Unable to stand for more than 10-15 [...] PT. Assessment & Plan (10/22/2021 12:32 PM FOREST RESOURCES PROFESSOR): Unable to stand for more than 10-15 [...] [place] Continue meloxicam 15mg [...] this. Assessment & Plan (11/16/2020 11:12 AM FOREST RESOURCES PROFESSOR): Unable to stand for more than 10-15 [...] time. Assessment & Plan (08/30/2020 12:26 PM FOREST RESOURCES PROFESSOR): Unable to stand for more than 10-15 [...] time. Assessment & Plan (08/15/2020 2:31 PM FOREST RESOURCES PROFESSOR): Unable to stand for more than 10-15 [...] clinically. Assessment & Plan (09/14/2024 11:55 AM FOREST RESOURCES PROFESSOR): Low cdai. Remains on Simponi aria IV [...] joint coverage. Continue Simponi aria 2mg/kg IV [id number]. Will defer labs today as he reports [...] joint coverage. Continue Simponi aria 2mg/kg IV [id number]. Will defer labs today as he is [...] joint coverage. Continue Simponi aria 2mg/kg IV [id number]. Routine labs today. Follow up in 3 months. Sooner if needed. Assessment & Plan (11/26/2023 12:12 PM FOREST RESOURCES PROFESSOR): Low cdai. Restarted Simponi aria IV 08/24/2020 [...] joint coverage. Continue Simponi aria 2mg/kg IV [id number]. Follow up in 3 months. Sooner if needed. Seen with Dr. Hickey. Assessment & Plan (08/27/2023 12:51 PM FOREST RESOURCES PROFESSOR): Low-moderate cdai. Restarted Simponi aria IV 08/24/2020 with improvement of peripheral joint complaints. MTX caused GI upset in the past however could consider retrying this in the future as combination therapy with simponi aria if needed. Otezla caused brain fog/mood changes. Continue Simponi aria 2mg/kg IV [id number]. Follow up in 3 months. Sooner if [...] causing tinnitus. Continue Simponi aria 2mg/kg IV [id number]. Follow up in 3 months. Sooner if needed. Seen with Dr. Maritns. Assessment & Plan (03/03/2023 11:44 AM CDT): [...] joint complaints. Continue Simponi aria 2mg/kg IV [id number]. Continue meloxicam 15mg daily. Due to worsening psoriasis will try Otezla (through samples). Studies have shown no significant adverse effects of combining Otezla with TNFi. Patient is going to wait to start Otezla until after his next Simponi aria infusion. Follow up in 2 months when back from [place]. Sooner if needed. Seen with Dr. Martins. Assessment & Plan (12/02/2022 11:32 AM FOREST RESOURCES PROFESSOR): Low cdai. Restarted Simponi aria IV 08/24/2020 [...] if needed. Continue Simponi aria 2mg/kg IV [id number]. Continue meloxicam 15mg daily. Previously discussed addition of an oral DMARD (MTX vs leflunomide) however patient defers additional medication at this time. If psoriasis would worsen, could consider changing biologics next. Recent labs reviewed with patient. Follow up in 3-4 months. Sooner if needed. Assessment & Plan (11/12/2022 4:44 PM FOREST RESOURCES PROFESSOR): Low cdai. 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 MTX caused GI upset in the past however could consider retrying this in the future as combination therapy with simponi aria if needed. Continue Simponi aria 2mg/kg IV m6qyias. Continue meloxicam 15mg daily. Previously discussed addition of an oral DMARD (MTX vs leflunomide) however patient defers additional medication at this time. Assessment & Plan (08/19/2022 12:47 PM FOREST RESOURCES PROFESSOR): Low cdai. Restarted Simponi aria IV 08/24/2020 with improvement of peripheral joint complaints. MTX caused GI upset in the past however could consider retrying this in the future as combination therapy with simponi aria if needed. Overall, symptoms remain stable. Continue Simponi aria 2mg/kg IV c0iegus. Continue meloxicam 15mg daily. Previously discussed addition [...] remain stable. Continue Simponi aria 2mg/kg IV [id number]. Continue meloxicam 15mg daily. Previously discussed addition [...] remain stable. Continue Simponi aria 2mg/kg IV [id number]. Continue meloxicam 15mg daily. Previously discussed addition of an oral DMARD (MTX vs leflunomide) however patient defers additional medication at this time. Routine labs today. Follow up in 3-4 months. Sooner if needed. Assessment & Plan (10/22/2021 11:52 AM FOREST RESOURCES PROFESSOR): Moderate cdai. Restarted Simponi aria IV 08/24/2020 with improvement of peripheral joint complaints.. MTX caused GI upset in the past however could consider retrying this in the future as combination therapy with simponi aria if needed. Overall, symptoms remain stable. Continue Simponi aria 2mg/kg IV [id number]. Continue meloxicam 15mg daily. Previously discussed addition [...] remain stable. Continue Simponi aria 2mg/kg IV [id number]. Continue meloxicam 15mg daily. Discussed addition of [...] remain stable. Continue Simponi aria 2mg/kg IV [id number]. Continue meloxicam 15mg daily. Routine labs today. [...] if needed. Continue Simponi aria 2mg/kg IV [id number]. Continue meloxicam 15mg daily. Will request recent labs from cardiology Dr. Talbot. Follow up in 3 months. Sooner if needed. Assessment & Plan (11/16/2020 12:00 PM FOREST RESOURCES PROFESSOR): Moderate cdai. Synovitis without tenderness noted on [...] Martins. Assessment & Plan (08/30/2020 12:18 PM FOREST RESOURCES PROFESSOR): US R hand/wrist (08/24/2020): Moderate synovial thickening/effusion [...] Martins. Assessment & Plan (08/15/2020 2:10 PM FOREST RESOURCES PROFESSOR): Patient presents with a prior diagnosis of [...] Department Care Team Description 09/19/2024 Orders Only [facility] [address] [place] [phone] Michaela Weinberg PA 09/14/2024 11:00 AM FOREST RESOURCES PROFESSOR Office Visit [facility] [address] [place] [phone] Michaela Weinberg PA Psoriasis with arthropathy (HCC) (Primary Dx); Psoriasis; Chronic midline low back pain, unspecified whether sciatica present; correction current use of therapeutic drug 09/14/2024 Telephone [facility] [address] [place] [phone] Michaela Weinberg PA Labs Requested from PCP from Last 3 Months Immunizations Immunization Administration Dates Next Due Influenza, Trivalent, IM (MDV) 09/14/2018 Influenza, Trivalent, Preservative Free, Intramu scular 09/08/2012 PPD TEST 01/27/2012 Surgical History Surgery Date Site/Laterality Comments CATARACT EXTRACTION W/ INTRA OCULAR LENS IMPLANT 01/10/2022 - 02/08/2022 Bilateral EYE SURGERY 07/13/2023 Right Yag Cap OD WISDOM TOOTH EXTRACTION 10/12/1978 - 10/11/1979 Medical History Medical History Date Comments 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 High risk medications (not [...] on file Legal Sex Male 8:28 PM FOREST RESOURCES PROFESSOR Gender Identity Not on file Sexual Orientation Not on file Obstetrics History Last Filed Vital Signs Vital Sign Reading Time Taken Comments Blood Pressure 154/78 09/14/2024 11:37 AM FOREST RESOURCES PROFESSOR Pulse 57 09/14/2024 11:37 AM FOREST RESOURCES PROFESSOR Temperature 36.4 C (97.6 F) 04/27/2024 1:10 PM CDT Respiratory Rate 14 04/27/2024 1:10 PM CDT Oxygen Saturation 99% 09/14/2024 11:37 AM FOREST RESOURCES PROFESSOR Inhaled Oxygen Concentration - - Weight 111.6 kg (246 lb) 09/14/2024 11:37 AM FOREST RESOURCES PROFESSOR Height 180.3 cm (5' 11 ) 09/14/2024 11:37 AM FOREST RESOURCES PROFESSOR Body Mass Index 34.31 09/14/2024 11:37 AM FOREST RESOURCES PROFESSOR Plan of Treatment Health Maintenance Due Date Last Done Comments Colon Cancer Screening-Colonoscopy 1950 Depression Screening 1950 Fall Risk Assessment 1950 DTaP/Tdap/Td Vaccine (1 - Tdap) 1963 Hepatitis B Screening 1970 Pneumococcal vaccine 65+ (1 of 1 - PCV) 2002 Zoster Vaccine (1 of 2) 2002 Well Visit 65+ 2017 Influenza Vaccine (#1) [...] Comments SCAN - LABS 09/19/2024 9:45 AM FOREST RESOURCES PROFESSOR HEPATITIS PANEL, ACUTE Routine 08/15/2020 11:54 AM FOREST RESOURCES PROFESSOR Psoriasis with arthropathy (CMS/HCC) Fatigue, unspecified type Immunocompromised (CMS/HCC) correction current use of therapeutic drug from Last 3 Months or Most Recently Relevant to Health Maintenance Results * SCAN - LABS (09/19/2024 9:45 AM FOREST RESOURCES PROFESSOR) Michaela HONEYCUTT Final Result * Hepatitis panel, acute (08/15/2020 11:54 AM FOREST RESOURCES PROFESSOR) Hep A IgM NON-REACTI VE NON-REACT ERNIE [facility] Comment: For additional information, please refer to http://[email or web address]/[email or web address] (This link is being provided for informational/ [...] a test for HCV RNA (test code 99587) is suggested. For additional information please refer to http://[email or web address]/faq/NLR75g7 (This link is being provided for informational/ educational purposes only.) Blood specimen (specimen) 08/15/2020 11:54 AM FOREST RESOURCES PROFESSOR 08/15/2020 11:55 AM FOREST RESOURCES PROFESSOR Michaela HONEYCUTT LAB MICROBIOLOGY - GE NERAL ORDERABLES Final Result POORNIMA [facility] [id number] [place] [phone] from Last 3 Months or Most Recently Relevant to Health Maintenance Insurance MEDICARE [facility] MEDICARE [facility] MEDICARE [facility] Address: [address] [address] [place] [address] [facility] Address: [address] [address] [place] [address] MEDICARE [employer] Care Teams Electronic Equipment Installer Relationship Specialty Start Date End Date Nicholas Magallanes MD [address] [address] PCP - General Family Medicine 08/02/20 Hank Talbot MD [address] [place] [address] [address] YI [address] [place] [phone] Cardiovascular Disease 01/28/21 Arvind Hickey MD [address] [place] [address] Consulting Physician Rheumatology 10/14/23
--- OUTSIDE RECORDS SUMMARY | 2024-12-06 13:18 | XMS_ITS | Referral Summary ---
Author Organization [facility] [address] [facility] Address [address] [place] [id number] Care Team Providers Care Bridal [employer] Sales And Management Name Role Phone Nicholas Magallanes MD Primary Care Provider [phone] Hank Talbot MD Unavailable [phone] Arvind Hickey MD Unavailable [phone] Encounters Date Type Department Care Team Description 09/19/2024 Orders Only [facility] [address] [place] [phone] Michaela Weinberg PA 09/14/2024 Telephone [facility] [address] [place] [phone] Michaela Weinberg PA Labs Requested from PCP 09/14/2024 11:00 AM GLUE SPREADER Office Visit [facility] [address] [place] [phone] Michaela Weinberg PA Psoriasis with arthropathy (HCC) (Primary Dx); Psoriasis; Chronic midline low back pain, unspecified whether sciatica present; long-term current use of therapeutic drug from Last 3 Months Allergies Active Allergy Reactions Criticality Noted Date Comments Penicillins Rash Medium Sulfa (Sulfonamide Antibiotics) Hives Medium 04/12 Medications levothyroxine (SYNTHROID) 100 mcg tablet Take 1 tablet (100 mcg total) by mouth 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 He was [facility] and failed bilateral L3-4 and L5-S1 [...] plana vitrectomy (PPV)/MP left eye (OS) at [facility] -cystoid macular edema (CME) [...] plana vitrectomy (PPV)/MP left eye (OS) at [facility] -cystoid macular edema (CME) [...] cataract extraction (CE)/IOL both eyes (OU) at [facility] -pt reports he also developed a macular pucker left eye (OS) after surgery; then had pars plana vitrectomy (PPV)/MP also at [facility] -he reports vision has [...] 11/12/2022 Assessment & Plan (09/14/2024 11:34 AM GLUE SPREADER): Improved with Otezla but stopped this in [...] joints. Assessment & Plan (11/26/2023 12:10 PM GLUE SPREADER): Improved with Otezla but stopped this in 05/2023 due to s/e with only slight recurrence of psoriasis on his back. Could consider Cosentyx IV in the future if necessary for skin and joints. Assessment & Plan (08/27/2023 12:44 PM GLUE SPREADER): Improved with Otezla but stopped this in [...] therapies. Assessment & Plan (12/02/2022 11:29 AM GLUE SPREADER): Kenalog IM given 11/12/22 with significant improvement. [...] involvement. Assessment & Plan (11/12/2022 4:47 PM GLUE SPREADER): Exacerbation involving multiple small plaques all over [...] also told he had macular pucker. Saw [facility] who started ketorolac and prednisolone drops for cystoid macular edema (OS). Has f/u again in 03/2023. Assessment & Plan (12/02/2022 11:29 AM GLUE SPREADER): Notes change in his vision s/p cataract removal and was also told he had macular pucker. Recommend he seek 2nd opinion at [facility] due to his continued concerns. Given name of Dr. Mayo. He is going to discuss referral with PCP at his upcoming visit. Assessment & Plan (11/12/2022 4:57 PM GLUE SPREADER): Notes change in his vision s/p cataract removal and was also told he had macular pucker. Recommend he seek 2nd opinion at [facility] due to his continued concern. Given name of Dr. Mayo. He is going to discuss referral with PCP. Assessment & Plan (08/19/2022 12:47 PM GLUE SPREADER): Notes change in his vision s/p cataract removal and was also told he had macular pucker. Recommend he seek 2nd opinion at [facility] due to his continued concerns and he will further discuss referral with his PCP. 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 2019 Overview (08/17/2020): Hepatitis negative: 08/2020 TB Quant negative: 08/2020 Assessment & Plan (09/14/2024 11:33 AM GLUE SPREADER): TB quant negative: 08/2020 Hepatitis negative: 08/2020 Assessment & Plan (06/16/2024 11:05 AM CDT): TB quant negative: 08/2020 Hepatitis negative: 08/2020 Assessment & Plan (03/03/2024 12:28 PM CDT): TB quant negative: 08/2020 Hepatitis negative: 08/2020 Assessment & Plan (11/26/2023 10:04 AM GLUE SPREADER): TB quant negative: 08/2020 Hepatitis negative: 08/2020 Assessment & Plan (08/27/2023 12:44 PM GLUE SPREADER): TB quant negative: 08/2020 Hepatitis negative: 08/2020 Assessment & Plan (05/26/2023 12:55 PM CDT): TB quant negative: 08/2020 Hepatitis negative: 08/2020 Assessment & Plan (03/03/2023 10:49 AM CDT): TB quant negative: 08/2020 Hepatitis negative: 08/2020 Assessment & Plan (12/02/2022 11:30 AM GLUE SPREADER): TB quant negative: 08/2020 Hepatitis negative: 08/2020 Assessment & Plan (11/12/2022 4:45 PM GLUE SPREADER): TB quant negative: 08/2020 Hepatitis negative: 08/2020 Assessment & Plan (08/19/2022 12:49 PM GLUE SPREADER): TB quant negative: 08/2020 Hepatitis negative: 08/2020 Assessment & Plan (05/22/2022 10:53 AM CDT): TB quant negative: 08/2020 Hepatitis negative: 08/2020 Assessment & Plan (01/29/2022 11:51 AM CDT): TB quant negative: 08/2020 Hepatitis negative: 08/2020 Assessment & Plan (10/22/2021 11:47 AM GLUE SPREADER): TB quant negative: 08/2020 Hepatitis negative: 08/2020 Assessment & Plan (07/29/2021 12:17 PM CDT): TB quant negative: 08/2020 Hepatitis negative: 08/2020 Assessment & Plan (04/29/2021 11:32 AM CDT): TB quant negative: 08/2020 Hepatitis negative: 08/2020 Assessment & Plan (01/28/2021 10:57 AM CDT): TB quant negative: 08/2020 Hepatitis negative: 08/2020 Assessment & Plan (11/16/2020 11:12 AM GLUE SPREADER): TB quant negative: 08/2020 Hepatitis negative: 08/2020 Assessment & Plan (08/30/2020 12:25 PM GLUE SPREADER): TB quant negative: 08/2020 Hepatitis negative: 08/2020 Assessment & Plan (08/15/2020 2:27 PM GLUE SPREADER): TB quant negative: 04/2019, repeat today Check [...] LMBB. Assessment & Plan (11/26/2023 11:22 AM GLUE SPREADER): Unable to stand for more than 10-15 [...] and will provide referral to PM&R at [facility]. Continue meloxicam 15mg daily as he does notice some benefit with this. Assessment & Plan (08/27/2023 12:48 PM GLUE SPREADER): Unable to stand for more than 10-15 [...] PCP. Assessment & Plan (12/02/2022 11:30 AM GLUE SPREADER): Unable to stand for more than 10-15 [...] PCP. Assessment & Plan (08/19/2022 12:45 PM GLUE SPREADER): Unable to stand for more than 10-15 [...] PT. Assessment & Plan (10/22/2021 12:32 PM GLUE SPREADER): Unable to stand for more than 10-15 [...] he [place] his [place] between [place] and [place]. Continue meloxicam 15mg [...] this. Assessment & Plan (11/16/2020 11:12 AM GLUE SPREADER): Unable to stand for more than 10-15 [...] time. Assessment & Plan (08/30/2020 12:26 PM GLUE SPREADER): Unable to stand for more than 10-15 [...] time. Assessment & Plan (08/15/2020 2:31 PM GLUE SPREADER): Unable to stand for more than 10-15 [...] clinically. Assessment & Plan (09/14/2024 11:55 AM GLUE SPREADER): Low cdai. Remains on Simponi aria IV [...] joint coverage. Continue Simponi aria 2mg/kg IV [id number]. Will defer labs today as he reports [...] joint coverage. Continue Simponi aria 2mg/kg IV [id number]. Will defer labs today as he is [...] joint coverage. Continue Simponi aria 2mg/kg IV [id number]. Routine labs today. Follow up in 3 months. Sooner if needed. Assessment & Plan (11/26/2023 12:12 PM GLUE SPREADER): Low cdai. Restarted Simponi aria IV 08/24/2020 [...] joint coverage. Continue Simponi aria 2mg/kg IV [id number]. Follow up in 3 months. Sooner if needed. Seen with Dr. Hickey. Assessment & Plan (08/27/2023 12:51 PM GLUE SPREADER): Low-moderate cdai. Restarted Simponi aria IV 08/24/2020 with improvement of peripheral joint complaints. MTX caused GI upset in the past however could consider retrying this in the future as combination therapy with simponi aria if needed. Otezla caused brain fog/mood changes. Continue Simponi aria 2mg/kg IV [id number]. Follow up in 3 months. Sooner if [...] causing tinnitus. Continue Simponi aria 2mg/kg IV [id number]. Follow up in 3 months. Sooner if [...] joint complaints. Continue Simponi aria 2mg/kg IV [id number]. Continue meloxicam 15mg daily. Due to worsening psoriasis will try Otezla (through samples). Studies have shown no significant adverse effects of combining Otezla with TNFi. Patient is going to wait to start Otezla until after his next Simponi aria infusion. Follow up in 2 months when back from [place]. Sooner if needed. Seen with Dr. Martins. Assessment & Plan (12/02/2022 11:32 AM GLUE SPREADER): Low cdai. Restarted Simponi aria IV 08/24/2020 [...] if needed. Continue Simponi aria 2mg/kg IV [id number]. Continue meloxicam 15mg daily. Previously discussed addition of an oral DMARD (MTX vs leflunomide) however patient defers additional medication at this time. If psoriasis would worsen, could consider changing biologics next. Recent labs reviewed with patient. Follow up in 3-4 months. Sooner if needed. Assessment & Plan (11/12/2022 4:44 PM GLUE SPREADER): Low cdai. 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 MTX caused GI upset in the past however could consider retrying this in the future as combination therapy with simponi aria if needed. Continue Simponi aria 2mg/kg IV [id number]. Continue meloxicam 15mg daily. Previously discussed addition of an oral DMARD (MTX vs leflunomide) however patient defers additional medication at this time. Assessment & Plan (08/19/2022 12:47 PM GLUE SPREADER): Low cdai. Restarted Simponi aria IV 08/24/2020 with improvement of peripheral joint complaints. MTX caused GI upset in the past however could consider retrying this in the future as combination therapy with simponi aria if needed. Overall, symptoms remain stable. Continue Simponi aria 2mg/kg IV [id number]. Continue meloxicam 15mg daily. Previously discussed addition [...] remain stable. Continue Simponi aria 2mg/kg IV [id number]. Continue meloxicam 15mg daily. Previously discussed addition [...] remain stable. Continue Simponi aria 2mg/kg IV [id number]. Continue meloxicam 15mg daily. Previously discussed addition of an oral DMARD (MTX vs leflunomide) however patient defers additional medication at this time. Routine labs today. Follow up in 3-4 months. Sooner if needed. Assessment & Plan (10/22/2021 11:52 AM GLUE SPREADER): Moderate cdai. Restarted Simponi aria IV 08/24/2020 with improvement of peripheral joint complaints.. MTX caused GI upset in the past however could consider retrying this in the future as combination therapy with simponi aria if needed. Overall, symptoms remain stable. Continue Simponi aria 2mg/kg IV [id number]. Continue meloxicam 15mg daily. Previously discussed addition [...] remain stable. Continue Simponi aria 2mg/kg IV [id number]. Continue meloxicam 15mg daily. Discussed addition of [...] remain stable. Continue Simponi aria 2mg/kg IV [id number]. Continue meloxicam 15mg daily. Routine labs today. [...] if needed. Continue Simponi aria 2mg/kg IV n3bkjdi. Continue meloxicam 15mg daily. Will request recent labs from cardiology Dr. Talbot. Follow up in 3 months. Sooner if needed. Assessment & Plan (11/16/2020 12:00 PM GLUE SPREADER): Moderate cdai. Synovitis without tenderness noted on [...] Martins. Assessment & Plan (08/30/2020 12:18 PM GLUE SPREADER): US R hand/wrist (08/24/2020): Moderate synovial thickening/effusion [...] Martins. Assessment & Plan (08/15/2020 2:10 PM GLUE SPREADER): Patient presents with a prior diagnosis of [...] if needed. Seen with Dr. Martins. Immunizations Immunization Administration Dates Next Due Influenza, [...] on file Legal Sex Male 8:28 PM GLUE SPREADER Gender Identity Not on file Sexual Orientation Not on file Last Filed Vital Signs Vital Sign Reading Time Taken Comments Blood Pressure 154/78 09/14/2024 11:37 AM GLUE SPREADER Pulse 57 09/14/2024 11:37 AM GLUE SPREADER Temperature 36.4 C (97.6 F) 04/27/2024 1:10 PM CDT Respiratory Rate 14 04/27/2024 1:10 PM CDT Oxygen Saturation 99% 09/14/2024 11:37 AM GLUE SPREADER Inhaled Oxygen Concentration - - Weight 111.6 kg (246 lb) 09/14/2024 11:37 AM GLUE SPREADER Height 180.3 cm (5' 11 ) 09/14/2024 11:37 AM GLUE SPREADER Body Mass Index 34.31 09/14/2024 11:37 AM GLUE SPREADER Plan of Treatment Not on file Goals [...] Comments SCAN - LABS 09/19/2024 9:45 AM GLUE SPREADER HEPATITIS PANEL, ACUTE Routine 08/15/2020 11:54 AM GLUE SPREADER Psoriasis with arthropathy (CMS/HCC) Fatigue, unspecified type Immunocompromised (CMS/HCC) long-term current use of therapeutic drug from Last 3 Months or Most Recently Relevant to Health Maintenance Results * SCAN - LABS (09/19/2024 9:45 AM GLUE SPREADER) Michaela HONEYCUTT Final Result * Hepatitis panel, acute (08/15/2020 11:54 AM GLUE SPREADER) Hep A IgM NON-REACTI VE NON-REACT ERNIE [facility] Comment: For additional information, please refer to [email or web address]/faq/EWZ085 (This link is being provided for informational/ [...] a test for HCV RNA (test code 09806) is suggested. For additional information please refer to http://[employer]/faq/CSZ77t9 (This link is being provided for informational/ educational purposes only.) Blood specimen (specimen) 08/15/2020 11:54 AM GLUE SPREADER 08/15/2020 11:55 AM GLUE SPREADER Michaela HONEYCUTT LAB MICROBIOLOGY - [facility] ORDERABLES Final Result [facility] [address] [place] [address] from Last 3 Months or Most Recently Relevant to Health Maintenance Insurance MEDICARE [facility] MEDICARE [facility] MEDICARE [facility] H[facility]/PPO Address: [address] [address] [place] [address] MEDICARE [facility] Care Teams Bridal Service Sales And Management Relationship Specialty Start Date End Date Nicholas Magallanes MD [address] [address] PCP - General Family Medicine 08/02/20 Hank Talbot MD [address] [place] [address] [place] [address] Cardiovascular Disease 01/28/21 Arvind Hickey MD [address] [place] [address] Consulting Physician Rheumatology 10/14/23
--- NOTE | 2024-12-06 13:19 | ED_ITS ---
HPI - General Adult General Chief complaint: Upper Respiratory Infection Stated complaint: body aches, fever Time Seen by Provider: 12/06/24 13:03 History of Present Illness HPI narrative: Patient 74-year-old gentleman presents emergency department with chief complaint flu-like symptoms patient reports that for the last several weeks he has had upper respiratory symptoms was treated with antibiotics and started to feel better then had his arthritis infusion on Thursday and then started having symptoms again patient did report that he had a fever at home reports that his cough has been productive sputum Related Data Home Medications ?Medication ?Instructions ?Recorded ?Confirmed ?Last Taken ?Type golimumab 12.5 mg/mL intravenous 12.5 mg IV DIRECTED 11/11/21 08/09/24 Unknown History solution (Simponi ARIA) Allergies Allergy/AdvReac Type Severity Reaction Status Date / Time Penicillins Allergy Mild Urticaria Verified 12/06/24 12:08 Sulfa (Sulfonamide Allergy Mild Hives Verified 12/06/24 12:08 Antibiotics) Review of Systems Review of Systems: A 10 system review of systems was completed on the patient and is negative except for what is stated in the HPI. Nursing and ancillary documentation was reviewed. [facility] Past Medical History Medical History Functional memory problem CT of the head on 06/21/2024 with changes with aging with chronic sinusitis noted. BMI 34.0-34.9,adult Diarrhea At low risk for fall Chronic bilateral low back pain with bilateral sciatica MRI of the lumbar spine on 09/17/2023 reveals degenerative disc disease and facet arthropathy with severe neuroforaminal narrowing at L4-L5 on the right and bilaterally at L5-S1 worse on the left than the right. BMI 32.0-32.9,adult Claudication of lower extremity (~2022) arterial Doppler study of the lower extremities 08/06/2023 normal. No evidence of peripheral vascular disease. Paresthesia of both lower extremities (~06/2023) EMG and nerve conduction study of the lower extremities on 07/29/2023 reveals no neuropathy. Family history of colon cancer in mother colonoscopy every 5 years starting at age 40 with last exam 2017. Normal colonoscopy 12/26/2022 except for diverticulosis. Recheck in 5 years. Encounter for prostate cancer screening PSA 3.40 on 05/16/2022. PSA 2.40 on 05/29/2023. PSA 1.82 on 06/17/2024. Abnormal fasting glucose (05/16/22) fasting glucose 100 on 05/16/2022. Glucose 108 with hemoglobin A1c 5.8 on 11/26/2022. Fasting glucose 93 on 03/03/2023. Fasting glucose 98 with hemoglobin A1c 5.6 on 05/29/2023. Glucose 97 with hemoglobin A1c 6.0 with GFR 75 on 06/17/2024. Anemia (05/16/22) hemoglobin 13.0 with hematocrit 40.6 on 05/16/2022. Hemoglobin 12.4 with vitamin B12 408 and folic acid greater than 24 with iron 61 with 22% saturation and ferritin 80 on 11/26/2022. Hemoglobin 13.2 on 03/03/2023. Hemoglobin 13.4 on 05/29/2023. BMI 33.0-33.9,adult Obesity (BMI 30.0-34.9) Macular pucker, left eye COVID-19 (04/22/22) unvaccinated, 2nd episode, symptoms 04/22/2022 with home test positive 04/22/2022. Chronic neck pain Liver cyst (04/26/21) patient was noted to have a 2.5 cm cyst the right lobe of the liver on CT of the chest on 04/26/2021. The patient was reassured BMI 35.0-35.9,adult Recurrent sinusitis CT of the brain on 06/21/2024 reveals chronic sinusitis. 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 Total cholesterol 86, triglycerides 37, HDL 54, LDL 21 on 11/26/2022. Cholesterol 102, triglycerides 93, HDL 48, LDL 36 with ratio of 2.1 on 05/29/2023. Cholesterol 97, triglycerides 83, HDL 51, LDL 29 with ratio of 1.9 on 06/17/2024. Acute sinusitis Fatigue Post-COVID syndrome persistent fatigue, loss of taste and smell COVID-19 (10/04/20) Nocturia Encounter for screening for other viral diseases Periodic limb movement disorder Severe periodic limb movement disorder with index of 137.9 on 11/03/2019. Iron 61 with 22% saturation and ferritin 80 on 11/26/2022. Chronic depression Surgical History Surgical History H/O eye surgery Family History Family History Father Cerebrovascular accident, Onset Age: 72 Family history of heart disease in male family member before age 55 Hypertension, Onset Age: 72 Mother Family history of Parkinson's disease Carcinoma of colon Hypertension Patient's mother is , Onset Age: 80 Sibling Patient's brother is in good health Grandparent Family history of cardiovascular disease, Onset Age: 85 Cerebrovascular accident, Onset Age: 60 Social History Social History Smoking status: Never smoker Alcohol intake: never Substance use: never Substance use type: does not use Lack of Transportation: No Lack of Food: Never True Current Housing: I Have Housing Concerned About Future Housing: No Difficulty Paying Gas/Electric Bills: No Difficulty Paying for Meds: No Currently Unemployed: No Education: Master's Degree or Higher Difficulty w/ Childcare or Family Care: No Living arrangements: with family Gender identity (if verbalized by the patient): Male Spiritual care concerns: No Exam Narrative: GENERAL: Well-appearing, well-nourished, and in no acute distress. HEAD: Normocephalic, atraumatic. EYES: PERRLA and EOMI. ENT: Nares clear, no rhinorrhea or epistaxis. Mucous membranes moist. NECK: Supple. CHEST: Clear to auscultation. No respiratory distress. HEART: Regular rate and rhythm. No murmur heard. Normal peripheral pulses. ABDOMEN: Soft, nontender, nondistended, normal active bowel sounds. EXTREMITIES: Normal range of motion. No edema. SKIN: Warm, dry, no rash. NEURO: No focal deficits. Alert and oriented x3. PSYCH: Normal mood and affect. Course Vital Signs Vital signs: Vital Signs Temperature 37.1 C 12/06/24 11:22 Pulse Rate 84 12/06/24 11:22 Respiratory Rate 18 12/06/24 11:22 Blood Pressure 102/72 12/06/24 11:22 Pulse Oximetry 98 12/06/24 11:22 Oxygen Delivery Room Air 02/25/25 11:22 Temperature 37.1 C 12/06/24 11:22 Pulse Rate 84 12/06/24 11:22 Respiratory Rate 18 12/06/24 11:22 Blood Pressure 102/72 12/06/24 11:22 Pulse Oximetry 98 12/06/24 11:22 Oxygen Delivery Room Air 12/06/24 12:04 Medical Decision Making MDM Narrative Medical decision making narrative: Differential diagnosis includes viral illness, upper respiratory infection, pneumonia The patient's vital signs are within normal limits Chest x-ray showed no focal infiltrate The patient was positive for influenza Given the patient is use of breast in on a 5 patient started on Tamiflu Vital Signs Vital Signs: Vital Signs Temperature 37.1 C 12/06/24 11:22 Pulse Rate 84 12/06/24 11:22 Respiratory Rate 18 12/06/24 11:22 Blood Pressure 102/72 12/06/24 11:22 Pulse Oximetry 98 12/06/24 11:22 Oxygen Delivery Room Air 12/06/24 11:22 Temperature 37.1 C 12/06/24 11:22 Pulse Rate 84 12/06/24 11:22 Respiratory Rate 18 12/06/24 11:22 Blood Pressure 102/72 12/06/24 11:22 Pulse Oximetry 98 12/06/24 11:22 Oxygen Delivery Room Air 12/06/24 12:04 Lab Data Labs: Lab Results 12/06/24 Range/Units 12:06 Influenza A (RT-PCR) Positive A (Negative) Influenza B (RT-PCR) Negative (Negative) RSV (RT-PCR) Negative (Negative) SARS-CoV-2 RNA (RT-PCR) Negative (Negative) Discharge Plan Discharge Clinical Impression: Influenza, Acute upper respiratory infection Patient Disposition: Home, Self-Care Condition: Stable Instructions: Antibiotic Form, Influenza (ED) Patient Language: Swedish Prescriptions: New oseltamivir [Tamiflu] 75 mg capsule 75 mg PO Q12H 5 Days Qty: 10 0RF No Action fluticasone propionate [Flonase Allergy Relief] 50 mcg/actuation spray,suspension 1 spray intranasal BID Qty: 16 0RF Rx Instructions: administer into each nostril Simponi ARIA 12.5 mg/mL solution 12.5 mg IVPB DIRECTED Patient Comments: IV infusion every 2 months by recreation worker 2 milligrams/kilogram Q 8 weeks IV benzonatate 100 mg capsule 100 mg PO BID PRN (Reason: cough) Qty: 20 0RF aspirin [Adult Low Dose Aspirin] 81 mg tablet,delayed release (DR/EC) 81 mg PO DAILY Qty: 30 11RF cholecalciferol (vitamin D3) 1,250 mcg (50,000 unit) capsule 50,000 unit PO WEEKLY Qty: 12 3RF metoprolol succinate 50 mg tablet extended release 24 hr 50 mg PO DAILY Qty: 90 3RF amlodipine 5 mg tablet 5 mg PO DAILY Qty: 90 3RF lisinopril 40 mg tablet 40 mg PO DAILY Qty: 90 3RF rosuvastatin [Crestor] 20 mg tablet 20 mg PO DAILY Qty: 90 3RF levothyroxine 100 mcg tablet 100 mcg PO DAILY Qty: 90 3RF hydrochlorothiazide 12.5 mg tablet 12.5 mg PO DAILY Qty: 90 3RF meloxicam 15 mg tablet 15 mg PO DAILY Qty: 90 3RF Follow-up/Referrals: Nicholas Magallanes MD [Primary Care Provider] - Time of Disposition: 13:23
--- OUTSIDE RECORDS SUMMARY | 2024-12-06 15:00 | XMS_ITS | Referral Summary ---
Author Organization [facility] [address] [facility] Address [address] [place] [phone] Care Team Providers Care Manager [employer] Name Role Phone Nicholas Magallanes MD Primary Care Provider [phone] Hank Talbot MD Unavailable [phone] Arvind Hickey MD Unavailable [phone] Encounters Date Type Department Care Team Description 09/19/2024 Orders Only [facility] [address] [place] [phone] Michaela Weinberg PA 09/14/2024 Telephone [facility] [address] [place] [phone] Michaela Weinberg PA Labs Requested from PCP 09/14/2024 11:00 AM DECORATING MACHINE TENDER Office Visit [facility] [address] [place] [phone] Michaela Weinberg PA Psoriasis with arthropathy (HCC) (Primary Dx); Psoriasis; Chronic midline low back pain, unspecified whether sciatica present; prison current use of therapeutic drug from Last 3 Months Allergies Active Allergy Reactions Criticality Noted Date Comments Penicillins Rash Medium Sulfa (Sulfonamide Antibiotics) Hives Medium 04/12 Medications levothyroxine (SYNTHROID) 100 mcg tablet Take 1 tablet (100 mcg total) by mouth 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 He was [facility] by [facility] and failed bilateral L3-4 and [...] plana vitrectomy (PPV)/MP left eye (OS) at [facility] -cystoid macular edema (CME) stable/slightly worsened with [...] plana vitrectomy (PPV)/MP left eye (OS) at [facility] -cystoid macular edema (CME) improved left eye [...] cataract extraction (CE)/IOL both eyes (OU) at [facility] -pt reports he also developed a macular pucker left eye (OS) after surgery; then had pars plana vitrectomy (PPV)/MP also at [facility] -he reports vision has been distorted and [...] 11/12/2022 Assessment & Plan (09/14/2024 11:34 AM DECORATING MACHINE TENDER): Improved with Otezla but stopped this in [...] joints. Assessment & Plan (11/26/2023 12:10 PM DECORATING MACHINE TENDER): Improved with Otezla but stopped this in 05/2023 due to s/e with only slight recurrence of psoriasis on his back. Could consider Cosentyx IV in the future if necessary for skin and joints. Assessment & Plan (08/27/2023 12:44 PM DECORATING MACHINE TENDER): Improved with Otezla but stopped this in [...] therapies. Assessment & Plan (12/02/2022 11:29 AM DECORATING MACHINE TENDER): Kenalog IM given 11/12/22 with significant improvement. [...] involvement. Assessment & Plan (11/12/2022 4:47 PM DECORATING MACHINE TENDER): Exacerbation involving multiple small plaques all over [...] also told he had macular pucker. Saw [facility] who started ketorolac and prednisolone drops for cystoid macular edema (OS). Has f/u again in 03/2023. Assessment & Plan (12/02/2022 11:29 AM DECORATING MACHINE TENDER): Notes change in his vision s/p cataract removal and was also told he had macular pucker. Recommend he seek 2nd opinion at [facility] due to his continued concerns. Given name of Dr. Mayo. He is going to discuss referral with PCP at his upcoming visit. Assessment & Plan (11/12/2022 4:57 PM DECORATING MACHINE TENDER): Notes change in his vision s/p cataract removal and was also told he had macular pucker. Recommend he seek 2nd opinion at [facility] due to his continued concern. Given name of Dr. Mayo. He is going to discuss referral with PCP. Assessment & Plan (08/19/2022 12:47 PM DECORATING MACHINE TENDER): Notes change in his vision s/p cataract removal and was also told he had macular pucker. Recommend he seek 2nd opinion at [facility] due to his continued concerns and he will further discuss referral with his PCP. 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 2019 Overview (08/17/2020): Hepatitis negative: 08/2020 TB Quant negative: 08/2020 Assessment & Plan (09/14/2024 11:33 AM DECORATING MACHINE TENDER): TB quant negative: 08/2020 Hepatitis negative: 08/2020 Assessment & Plan (06/16/2024 11:05 AM CDT): TB quant negative: 08/2020 Hepatitis negative: 08/2020 Assessment & Plan (03/03/2024 12:28 PM CDT): TB quant negative: 08/2020 Hepatitis negative: 08/2020 Assessment & Plan (11/26/2023 10:04 AM DECORATING MACHINE TENDER): TB quant negative: 08/2020 Hepatitis negative: 08/2020 Assessment & Plan (08/27/2023 12:44 PM DECORATING MACHINE TENDER): TB quant negative: 08/2020 Hepatitis negative: 08/2020 Assessment & Plan (05/26/2023 12:55 PM CDT): TB quant negative: 08/2020 Hepatitis negative: 08/2020 Assessment & Plan (03/03/2023 10:49 AM CDT): TB quant negative: 08/2020 Hepatitis negative: 08/2020 Assessment & Plan (12/02/2022 11:30 AM DECORATING MACHINE TENDER): TB quant negative: 08/2020 Hepatitis negative: 08/2020 Assessment & Plan (11/12/2022 4:45 PM DECORATING MACHINE TENDER): TB quant negative: 08/2020 Hepatitis negative: 08/2020 Assessment & Plan (08/19/2022 12:49 PM DECORATING MACHINE TENDER): TB quant negative: 08/2020 Hepatitis negative: 08/2020 Assessment & Plan (05/22/2022 10:53 AM CDT): TB quant negative: 08/2020 Hepatitis negative: 08/2020 Assessment & Plan (01/29/2022 11:51 AM CDT): TB quant negative: 08/2020 Hepatitis negative: 08/2020 Assessment & Plan (10/22/2021 11:47 AM DECORATING MACHINE TENDER): TB quant negative: 08/2020 Hepatitis negative: 08/2020 Assessment & Plan (07/29/2021 12:17 PM CDT): TB quant negative: 08/2020 Hepatitis negative: 08/2020 Assessment & Plan (04/29/2021 11:32 AM CDT): TB quant negative: 08/2020 Hepatitis negative: 08/2020 Assessment & Plan (01/28/2021 10:57 AM CDT): TB quant negative: 08/2020 Hepatitis negative: 08/2020 Assessment & Plan (11/16/2020 11:12 AM DECORATING MACHINE TENDER): TB quant negative: 08/2020 Hepatitis negative: 08/2020 Assessment & Plan (08/30/2020 12:25 PM DECORATING MACHINE TENDER): TB quant negative: 08/2020 Hepatitis negative: 08/2020 Assessment & Plan (08/15/2020 2:27 PM DECORATING MACHINE TENDER): TB quant negative: 04/2019, repeat today Check [...] LMBB. Assessment & Plan (11/26/2023 11:22 AM DECORATING MACHINE TENDER): Unable to stand for more than 10-15 [...] and will provide referral to PM&R at [facility]. Continue meloxicam 15mg daily as he does notice some benefit with this. Assessment & Plan (08/27/2023 12:48 PM DECORATING MACHINE TENDER): Unable to stand for more than 10-15 [...] PCP. Assessment & Plan (12/02/2022 11:30 AM DECORATING MACHINE TENDER): Unable to stand for more than 10-15 [...] PCP. Assessment & Plan (08/19/2022 12:45 PM DECORATING MACHINE TENDER): Unable to stand for more than 10-15 [...] PT. Assessment & Plan (10/22/2021 12:32 PM DECORATING MACHINE TENDER): Unable to stand for more than 10-15 [...] he [place]. Continue meloxicam 15mg [...] this. Assessment & Plan (11/16/2020 11:12 AM DECORATING MACHINE TENDER): Unable to stand for more than 10-15 [...] time. Assessment & Plan (08/30/2020 12:26 PM DECORATING MACHINE TENDER): Unable to stand for more than 10-15 [...] time. Assessment & Plan (08/15/2020 2:31 PM DECORATING MACHINE TENDER): Unable to stand for more than 10-15 [...] clinically. Assessment & Plan (09/14/2024 11:55 AM DECORATING MACHINE TENDER): Low cdai. Remains on Simponi aria IV [...] joint coverage. Continue Simponi aria 2mg/kg IV [id number]. Will defer labs today as he reports [...] joint coverage. Continue Simponi aria 2mg/kg IV [id number]. Will defer labs today as he is [...] joint coverage. Continue Simponi aria 2mg/kg IV [id number]. Routine labs today. Follow up in 3 months. Sooner if needed. Assessment & Plan (11/26/2023 12:12 PM DECORATING MACHINE TENDER): Low cdai. Restarted Simponi aria IV 08/24/2020 [...] joint coverage. Continue Simponi aria 2mg/kg IV [id number]. Follow up in 3 months. Sooner if needed. Seen with Dr. Hickey. Assessment & Plan (08/27/2023 12:51 PM DECORATING MACHINE TENDER): Low-moderate cdai. Restarted Simponi aria IV 08/24/2020 with improvement of peripheral joint complaints. MTX caused GI upset in the past however could consider retrying this in the future as combination therapy with simponi aria if needed. Otezla caused brain fog/mood changes. Continue Simponi aria 2mg/kg IV [id number]. Follow up in 3 months. Sooner if [...] causing tinnitus. Continue Simponi aria 2mg/kg IV [id number]. Follow up in 3 months. Sooner if [...] joint complaints. Continue Simponi aria 2mg/kg IV [id number]. Continue meloxicam 15mg daily. Due to worsening psoriasis will try Otezla (through samples). Studies have shown no significant adverse effects of combining Otezla with TNFi. Patient is going to wait to start Otezla until after his next Simponi aria infusion. Follow up in 2 months when back from [place]. Sooner if needed. Seen with Dr. Martins. Assessment & Plan (12/02/2022 11:32 AM DECORATING MACHINE TENDER): Low cdai. Restarted Simponi aria IV 08/24/2020 [...] if needed. Continue Simponi aria 2mg/kg IV [id number]. Continue meloxicam 15mg daily. Previously discussed addition of an oral DMARD (MTX vs leflunomide) however patient defers additional medication at this time. If psoriasis would worsen, could consider changing biologics next. Recent labs reviewed with patient. Follow up in 3-4 months. Sooner if needed. Assessment & Plan (11/12/2022 4:44 PM DECORATING MACHINE TENDER): Low cdai. 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 MTX caused GI upset in the past however could consider retrying this in the future as combination therapy with simponi aria if needed. Continue Simponi aria 2mg/kg IV [id number]. Continue meloxicam 15mg daily. Previously discussed addition of an oral DMARD (MTX vs leflunomide) however patient defers additional medication at this time. Assessment & Plan (08/19/2022 12:47 PM DECORATING MACHINE TENDER): Low cdai. Restarted Simponi aria IV 08/24/2020 with improvement of peripheral joint complaints. MTX caused GI upset in the past however could consider retrying this in the future as combination therapy with simponi aria if needed. Overall, symptoms remain stable. Continue Simponi aria 2mg/kg IV [id number]. Continue meloxicam 15mg daily. Previously discussed addition [...] remain stable. Continue Simponi aria 2mg/kg IV [id number]. Continue meloxicam 15mg daily. Previously discussed addition [...] remain stable. Continue Simponi aria 2mg/kg IV [id number]. Continue meloxicam 15mg daily. Previously discussed addition of an oral DMARD (MTX vs leflunomide) however patient defers additional medication at this time. Routine labs today. Follow up in 3-4 months. Sooner if needed. Assessment & Plan (10/22/2021 11:52 AM DECORATING MACHINE TENDER): Moderate cdai. Restarted Simponi aria IV 08/24/2020 with improvement of peripheral joint complaints.. MTX caused GI upset in the past however could consider retrying this in the future as combination therapy with simponi aria if needed. Overall, symptoms remain stable. Continue Simponi aria 2mg/kg IV [id number]. Continue meloxicam 15mg daily. Previously discussed addition [...] remain stable. Continue Simponi aria 2mg/kg IV [id number]. Continue meloxicam 15mg daily. Discussed addition of [...] remain stable. Continue Simponi aria 2mg/kg IV [id number]. Continue meloxicam 15mg daily. Routine labs today. [...] if needed. Continue Simponi aria 2mg/kg IV [id number]. Continue meloxicam 15mg daily. Will request recent labs from cardiology Dr. Talbot. Follow up in 3 months. Sooner if needed. Assessment & Plan (11/16/2020 12:00 PM DECORATING MACHINE TENDER): Moderate cdai. Synovitis without tenderness noted on [...] Martins. Assessment & Plan (08/30/2020 12:18 PM DECORATING MACHINE TENDER): US R hand/wrist (08/24/2020): Moderate synovial thickening/effusion [...] Martins. Assessment & Plan (08/15/2020 2:10 PM DECORATING MACHINE TENDER): Patient presents with a prior diagnosis of [...] on file Legal Sex Male 8:28 PM DECORATING MACHINE TENDER Gender Identity Not on file Sexual Orientation Not on file Last Filed Vital Signs Vital Sign Reading Time Taken Comments Blood Pressure 154/78 09/14/2024 11:37 AM DECORATING MACHINE TENDER Pulse 57 09/14/2024 11:37 AM DECORATING MACHINE TENDER Temperature 36.4 C (97.6 F) 04/27/2024 1:10 PM CDT Respiratory Rate 14 04/27/2024 1:10 PM CDT Oxygen Saturation 99% 09/14/2024 11:37 AM DECORATING MACHINE TENDER Inhaled Oxygen Concentration - - Weight 111.6 kg (246 lb) 09/14/2024 11:37 AM DECORATING MACHINE TENDER Height 180.3 cm (5' 11 ) 09/14/2024 11:37 AM DECORATING MACHINE TENDER Body Mass Index 34.31 09/14/2024 11:37 AM DECORATING MACHINE TENDER Plan of Treatment Not on file Goals [...] Comments SCAN - LABS 09/19/2024 9:45 AM DECORATING MACHINE TENDER HEPATITIS PANEL, ACUTE Routine 08/15/2020 11:54 AM DECORATING MACHINE TENDER Psoriasis with arthropathy (CMS/HCC) Fatigue, unspecified type Immunocompromised (CMS/HCC) prison current use of therapeutic drug from Last 3 Months or Most Recently Relevant to Health Maintenance Results * SCAN - LABS (09/19/2024 9:45 AM DECORATING MACHINE TENDER) Michaela HONEYCUTT Final Result * Hepatitis panel, acute (08/15/2020 11:54 AM DECORATING MACHINE TENDER) Hep A IgM NON-REACTI VE NON-REACT ERNIE [facility] Comment: For additional information, please refer to http://[employer]ogen/faq/AZJ132 (This link is being provided for informational/ [...] a test for HCV RNA (test code 32051) is suggested. For additional information please refer to http://[employer]/faq/RPY71o4 (This link is being provided for informational/ educational purposes only.) Blood specimen (specimen) 08/15/2020 11:54 AM DECORATING MACHINE TENDER 08/15/2020 11:55 AM DECORATING MACHINE TENDER Michaela HONEYCUTT LAB MICROBIOLOGY - [facility] ORDERABLES Final Result [facility] [address] [place] [address] from Last 3 Months or Most Recently Relevant to Health Maintenance Insurance MEDICARE [facility] MEDICARE [facility] MEDICARE [facility] CHOICE PLUS [facility]ALTH [facility] HMO/PPO Address: [address] [address] [place] [address] MEDICARE [facility] Care Teams Manager [employer] Relationship Specialty Start Date End Date Nicholas Magallanes MD [address] [address] PCP - General Family Medicine 08/02/20 Hank Talbot MD [address] [place] [address] [place] [address] Cardiovascular Disease 01/28/21 Arvind Hickey MD [address] [place] [address] Consulting Physician Rheumatology 10/14/23
--- OUTSIDE RECORDS SUMMARY | 2024-12-06 15:00 | XMS_ITS | Clinical Summary ---
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 Assessment & Plan (11/26/2023 12:10 PM NETWORK DEVELOPER): Improved with Otezla but stopped this in 05/2023 due to s/e with only slight recurrence of psoriasis on his back. Could consider Cosentyx IV in the future if necessary for skin and joints. Assessment & Plan (08/27/2023 12:44 PM NETWORK DEVELOPER): Improved with Otezla but stopped this in [...] therapies. Assessment & Plan (12/02/2022 11:29 AM NETWORK DEVELOPER): Kenalog IM given 11/12/22 with significant improvement. [...] involvement. Assessment & Plan (11/12/2022 4:47 PM NETWORK DEVELOPER): Exacerbation involving multiple small plaques all over [...] also told he had macular pucker. Saw [facility] who started ketorolac and prednisolone drops for cystoid macular edema (OS). Has f/u again in 03/2023. Assessment & Plan (12/02/2022 11:29 AM NETWORK DEVELOPER): Notes change in his vision s/p cataract removal and was also told he had macular pucker. Recommend he seek 2nd opinion at [facility] due to his continued concerns. Given name of Dr. Maoy. He is going to discuss referral with PCP at his upcoming visit. Assessment & Plan (11/12/2022 4:57 PM NETWORK DEVELOPER): Notes change in his vision s/p cataract removal and was also told he had macular pucker. Recommend he seek 2nd opinion at [facility] due to his continued concern. Given name of Dr. Mayo. He is going to discuss referral with PCP. Assessment & Plan (08/19/2022 12:47 PM NETWORK DEVELOPER): Notes change in his vision s/p cataract removal and was also told he had macular pucker. Recommend he seek 2nd opinion at [facility] due to his continued concerns and he will further discuss referral with his PCP. 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) 05/29/2021 [facility] current use of therapeutic drug 2019 Overview (08/17/2020): Hepatitis negative: 08/2020 TB Quant negative: 08/2020 Assessment & Plan (09/14/2024 11:33 AM NETWORK DEVELOPER): TB quant negative: 08/2020 Hepatitis negative: 08/2020 Assessment & Plan (06/16/2024 11:05 AM CDT): TB quant negative: 08/2020 Hepatitis negative: 08/2020 Assessment & Plan (03/03/2024 12:28 PM CDT): TB quant negative: 08/2020 Hepatitis negative: 08/2020 Assessment & Plan (11/26/2023 10:04 AM NETWORK DEVELOPER): TB quant negative: 08/2020 Hepatitis negative: 08/2020 Assessment & Plan (08/27/2023 12:44 PM NETWORK DEVELOPER): TB quant negative: 08/2020 Hepatitis negative: 08/2020 Assessment & Plan (05/26/2023 12:55 PM CDT): TB quant negative: 08/2020 Hepatitis negative: 08/2020 Assessment & Plan (03/03/2023 10:49 AM CDT): TB quant negative: 08/2020 Hepatitis negative: 08/2020 Assessment & Plan (12/02/2022 11:30 AM NETWORK DEVELOPER): TB quant negative: 08/2020 Hepatitis negative: 08/2020 Assessment & Plan (11/12/2022 4:45 PM NETWORK DEVELOPER): TB quant negative: 08/2020 Hepatitis negative: 08/2020 Assessment & Plan (08/19/2022 12:49 PM NETWORK DEVELOPER): TB quant negative: 08/2020 Hepatitis negative: 08/2020 Assessment & Plan (05/22/2022 10:53 AM CDT): TB quant negative: 08/2020 Hepatitis negative: 08/2020 Assessment & Plan (01/29/2022 11:51 AM CDT): TB quant negative: 08/2020 Hepatitis negative: 08/2020 Assessment & Plan (10/22/2021 11:47 AM NETWORK DEVELOPER): TB quant negative: 08/2020 Hepatitis negative: 08/2020 Assessment & Plan (07/29/2021 12:17 PM CDT): TB quant negative: 08/2020 Hepatitis negative: 08/2020 Assessment & Plan (04/29/2021 11:32 AM CDT): TB quant negative: 08/2020 Hepatitis negative: 08/2020 Assessment & Plan (01/28/2021 10:57 AM CDT): TB quant negative: 08/2020 Hepatitis negative: 08/2020 Assessment & Plan (11/16/2020 11:12 AM NETWORK DEVELOPER): TB quant negative: 08/2020 Hepatitis negative: 08/2020 Assessment & Plan (08/30/2020 12:25 PM NETWORK DEVELOPER): TB quant negative: 08/2020 Hepatitis negative: 08/2020 Assessment & Plan (08/15/2020 2:27 PM NETWORK DEVELOPER): TB quant negative: 04/2019, repeat today Check [...] LMBB. Assessment & Plan (11/26/2023 11:22 AM NETWORK DEVELOPER): Unable to stand for more than 10-15 [...] and will provide referral to PM&R at [facility]. Continue meloxicam 15mg daily as he does notice some benefit with this. Assessment & Plan (08/27/2023 12:48 PM NETWORK DEVELOPER): Unable to stand for more than 10-15 [...] PCP. Assessment & Plan (12/02/2022 11:30 AM NETWORK DEVELOPER): Unable to stand for more than 10-15 [...] PCP. Assessment & Plan (08/19/2022 12:45 PM NETWORK DEVELOPER): Unable to stand for more than 10-15 [...] PT. Assessment & Plan (10/22/2021 12:32 PM NETWORK DEVELOPER): Unable to stand for more than 10-15 [...] he [place] and [place]. Continue meloxicam 15mg [...] this. Assessment & Plan (11/16/2020 11:12 AM NETWORK DEVELOPER): Unable to stand for more than 10-15 [...] time. Assessment & Plan (08/30/2020 12:26 PM NETWORK DEVELOPER): Unable to stand for more than 10-15 [...] time. Assessment & Plan (08/15/2020 2:31 PM NETWORK DEVELOPER): Unable to stand for more than 10-15 [...] clinically. Assessment & Plan (09/14/2024 11:55 AM NETWORK DEVELOPER): Low cdai. Remains on Simponi aria IV [...] joint coverage. Continue Simponi aria 2mg/kg IV [id number]. Will defer labs today as he reports [...] joint coverage. Continue Simponi aria 2mg/kg IV [id number]. Will defer labs today as he is [...] joint coverage. Continue Simponi aria 2mg/kg IV [id number]. Routine labs today. Follow up in 3 months. Sooner if needed. Assessment & Plan (11/26/2023 12:12 PM NETWORK DEVELOPER): Low cdai. Restarted Simponi aria IV 08/24/2020 [...] joint coverage. Continue Simponi aria 2mg/kg IV [id number]. Follow up in 3 months. Sooner if needed. Seen with Dr. Hickey. Assessment & Plan (08/27/2023 12:51 PM NETWORK DEVELOPER): Low-moderate cdai. Restarted Simponi aria IV 08/24/2020 with improvement of peripheral joint complaints. MTX caused GI upset in the past however could consider retrying this in the future as combination therapy with simponi aria if needed. Otezla caused brain fog/mood changes. Continue Simponi aria 2mg/kg IV [id number]. Follow up in 3 months. Sooner if [...] causing tinnitus. Continue Simponi aria 2mg/kg IV [id number]. Follow up in 3 months. Sooner if [...] joint complaints. Continue Simponi aria 2mg/kg IV i4vgine. Continue meloxicam 15mg daily. Due to worsening psoriasis will try Otezla (through samples). Studies have shown no significant adverse effects of combining Otezla with TNFi. Patient is going to wait to start Otezla until after his next Simponi aria infusion. Follow up in 2 months when back from [place]. Sooner if needed. Seen with Dr. Martins. Assessment & Plan (12/02/2022 11:32 AM NETWORK DEVELOPER): Low cdai. Restarted Simponi aria IV 08/24/2020 [...] if needed. Continue Simponi aria 2mg/kg IV [id number]. Continue meloxicam 15mg daily. Previously discussed addition of an oral DMARD (MTX vs leflunomide) however patient defers additional medication at this time. If psoriasis would worsen, could consider changing biologics next. Recent labs reviewed with patient. Follow up in 3-4 months. Sooner if needed. Assessment & Plan (11/12/2022 4:44 PM NETWORK DEVELOPER): Low cdai. 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 MTX caused GI upset in the past however could consider retrying this in the future as combination therapy with simponi aria if needed. Continue Simponi aria 2mg/kg IV [id number]. Continue meloxicam 15mg daily. Previously discussed addition of an oral DMARD (MTX vs leflunomide) however patient defers additional medication at this time. Assessment & Plan (08/19/2022 12:47 PM NETWORK DEVELOPER): Low cdai. Restarted Simponi aria IV 08/24/2020 with improvement of peripheral joint complaints. MTX caused GI upset in the past however could consider retrying this in the future as combination therapy with simponi aria if needed. Overall, symptoms remain stable. Continue Simponi aria 2mg/kg IV [id number]. Continue meloxicam 15mg daily. Previously discussed addition [...] remain stable. Continue Simponi aria 2mg/kg IV [id number]. Continue meloxicam 15mg daily. Previously discussed addition [...] remain stable. Continue Simponi aria 2mg/kg IV [id number]. Continue meloxicam 15mg daily. Previously discussed addition of an oral DMARD (MTX vs leflunomide) however patient defers additional medication at this time. Routine labs today. Follow up in 3-4 months. Sooner if needed. Assessment & Plan (10/22/2021 11:52 AM NETWORK DEVELOPER): Moderate cdai. Restarted Simponi aria IV 08/24/2020 with improvement of peripheral joint complaints.. MTX caused GI upset in the past however could consider retrying this in the future as combination therapy with simponi aria if needed. Overall, symptoms remain stable. Continue Simponi aria 2mg/kg IV [id number]. Continue meloxicam 15mg daily. Previously discussed addition [...] remain stable. Continue Simponi aria 2mg/kg IV [id number]. Continue meloxicam 15mg daily. Discussed addition of [...] remain stable. Continue Simponi aria 2mg/kg IV [id number]. Continue meloxicam 15mg daily. Routine labs today. [...] if needed. Continue Simponi aria 2mg/kg IV [id number]. Continue meloxicam 15mg daily. Will request recent labs from cardiology Dr. Talbot. Follow up in 3 months. Sooner if needed. Assessment & Plan (11/16/2020 12:00 PM NETWORK DEVELOPER): Moderate cdai. Synovitis without tenderness noted on [...] Martins. Assessment & Plan (08/30/2020 12:18 PM NETWORK DEVELOPER): US R hand/wrist (08/24/2020): Moderate synovial thickening/effusion [...] Martins. Assessment & Plan (08/15/2020 2:10 PM NETWORK DEVELOPER): Patient presents with a prior diagnosis of [...] Department Care Team Description 09/19/2024 Orders Only [facility] [address] [place] [phone] Michaela Weinberg PA 09/14/2024 11:00 AM NETWORK DEVELOPER Office Visit [facility] [address] [place] [phone] Michaela Weinberg PA Psoriasis with arthropathy (HCC) (Primary Dx); Psoriasis; Chronic midline low back pain, unspecified whether sciatica present; [facility] current use of therapeutic drug 09/14/2024 Telephone [facility] [address] [place] [phone] Michaela Weinberg PA Labs Requested from PCP [...] Medical History Medical History Date Comments 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 High risk medications (not [...] on file Legal Sex Male 8:28 PM NETWORK DEVELOPER Gender Identity Not on file Sexual Orientation Not on file Obstetrics History Last Filed Vital Signs Vital Sign Reading Time Taken Comments Blood Pressure 154/78 09/14/2024 11:37 AM NETWORK DEVELOPER Pulse 57 09/14/2024 11:37 AM NETWORK DEVELOPER Temperature 36.4 C (97.6 F) 04/27/2024 1:10 PM CDT Respiratory Rate 14 04/27/2024 1:10 PM CDT Oxygen Saturation 99% 09/14/2024 11:37 AM NETWORK DEVELOPER Inhaled Oxygen Concentration - - Weight 111.6 kg (246 lb) 09/14/2024 11:37 AM NETWORK DEVELOPER Height 180.3 cm (5' 11 ) 09/14/2024 11:37 AM NETWORK DEVELOPER Body Mass Index 34.31 09/14/2024 11:37 AM NETWORK DEVELOPER Plan of Treatment Health Maintenance Due Date [...] Comments SCAN - LABS 09/19/2024 9:45 AM NETWORK DEVELOPER HEPATITIS PANEL, ACUTE Routine 08/15/2020 11:54 AM NETWORK DEVELOPER Psoriasis with arthropathy (CMS/HCC) Fatigue, unspecified type Immunocompromised (CMS/HCC) [facility] current use of therapeutic drug from Last 3 Months or Most Recently Relevant to Health Maintenance Results * SCAN - LABS (09/19/2024 9:45 AM NETWORK DEVELOPER) Michaela HONEYCUTT Final Result * Hepatitis panel, acute (08/15/2020 11:54 AM NETWORK DEVELOPER) Hep A IgM NON-REACTI VE NON-REACT ERNIE [facility] Comment: For additional information, please refer to http://Stublisher.CypherWorX/faq/QJB335 (This link is being provided for informational/ [...] a test for HCV RNA (test code 12051) is suggested. For additional information please refer to http://Stublisher.CypherWorX/faq/IKA35w1 (This link is being provided for informational/ educational purposes only.) Blood specimen (specimen) 08/15/2020 11:54 AM NETWORK DEVELOPER 08/15/2020 11:55 AM NETWORK DEVELOPER Michaela HONEYCUTT LAB MICROBIOLOGY - GE NERAL ORDERABLES Final Result POORNIMA [facility] [id number] [place] [phone] from Last 3 Months or Most Recently Relevant to Health Maintenance Insurance MEDICARE [facility] MEDICARE [facility] MEDICARE [facility] CHOICE PLUS MEDICARE AARP Care Teams Classroom Technology Coach Relationship Specialty Start Date End Date Nicholas Magallanes MD [address] [address] PCP - General Family Medicine 08/02/20 Hank Talbot MD [address] [place] [address] DR YI [address] [place] [id number] Cardiovascular Disease 01/28/21 Arvind Hickey MD [address] [place] [address] Consulting Physician Rheumatology 10/14/23
== END 2024-12-06 13:30 | disposition home or self-care (01) ==
PROVIDERS: Physician Assistant; Emergency Provider Emergency Medicine; PCP Family Medicine
DX: J11.1 Influenza due to unidentified influenza virus with other respiratory manifestations (principal); E78.2 Mixed hyperlipidemia; E66.9 Obesity, unspecified; Z68.34 Body mass index [BMI] 34.0-34.9, adult; Z86.16 Personal history of COVID-19; Z79.82 Long term (current) use of aspirin; Z79.899 Other long term (current) drug therapy
CPT/HCPCS: 71046; 87637; 99283